=== PATIENT | female | born 1930 | race Caucasian/White ===

== ENCOUNTER 2017-08-14 23:38 | Emergency (ER) | payer MEDICARE, BC | END 2017-08-15 02:45 | disposition home or self-care (01) | LOC: D.ER 23:38 | DX: I10 Essential (primary) hypertension (principal); R00.0 Tachycardia, unspecified; I44.0 Atrioventricular block, first degree ==

== ENCOUNTER 2017-10-22 14:19 | Inpatient (IN) | payer MEDICARE, BC ==
[~2017-10-22] VITALS: Ht 170.2 cm; Wt 85.9 kg
[~2017-10-22 14:19] MED LIST: BAYER CHEWABLE81 MG PO; BENTYL10 MG PO; CALTRATE 600 M600 M1 PO; CARDIZEM CD360 MG PO; LISINOPRIL10 MG PO; LISINOPRIL5 MG PO; MOBIC7.5 MG PO; NORVASC10 MG PO; OMEPRAZOLE40 MG PO; ULTRAM50 MG PO; VITAMIN D31000 UNI2 PO; VOLTAREN100 GM TOPICAL; XANAX0.25 MG PO; XANAX0.5 MG PO; ZANTAC300 MG PO
[2017-10-22 15:04] LABS: BASOPHILS 0.1 % (0-2); HEMATOCRIT 40.5 % (36.0-48.0); IMMATURE GRANULOCYTES 0.4 % (0-5); LYMPHOCYTES 21.5 % (15-50); MCH 32.2 pg (26.0-34.0); MCHC 34.6 g/dL (31.0-37.0); MCV 93.1 fL (80.0-100.0); MONOCYTES 7.2 % (2-11); NEUTROPHILS 69.8 % (40-80); PLATELET COUNT 321 10x3/uL (130-400); RBC 4.35 10x6/uL (4.00-5.40); WBC 6.9 10x3/uL (4.8-10.8)
[2017-10-22 15:19] LABS: ALBUMIN 3.6 g/dL (3.4-5.0); ANION GAP 12.8 mmol/L (8-16); BILIRUBIN - TOTAL 0.4 mg/dL (0.2-1.3); CALCIUM 9.3 mg/dL (8.5-10.1); CARBON DIOXIDE 26.1 mmol/L (21.0-32.0); CREATININE - SERUM 0.9 mg/dL (0.6-1.3); POTASSIUM - SERUM 3.9 mmol/L (3.5-5.1); PROTEIN - SERUM 7.2 g/dL (6.4-8.2)
[2017-10-22 16:12] LABS: AMYLASE - SERUM 34 U/L (25-115); CKMB 1.4 U/L (0.0-3.6); CREATINE KINASE 42 UL (21-215); LIPASE 241 U/L (73-393); TROPONIN-I < 0.017 ng/mL (0.000-0.060)
[2017-10-22 17:27] LABS: APPEARANCE HAZY (CLEAR); BACTERIA MODERATE /hpf (NONE SEEN); BILIRUBIN NEGATIVE (NEGATIVE); COLOR STRAW (YELLOW); EPITHELIAL CELLS 0-5 /hpf (0-5); GLUCOSE NEGATIVE (NEGATIVE); KETONE NEGATIVE (NEGATIVE); NITRITE NEGATIVE (NEGATIVE); PROTEIN NEGATIVE (NEGATIVE); RED CELLS - URINE OCC /hpf (0-5); UROBILINOGEN NORMAL (NORMAL); WHITE CELLS - URINE 25-50 /hpf (0-5)
--- NOTE | 2017-10-22 19:37 | NUR ---
PATIENT ARRIVED FROM THE ER VIA WHEELCHAIR ALERT AND ORIENTED TO ROOM AND CALL LIGHT. CALL LIGHT PLACED IN REACH.
[2017-10-22] MEDS ORDERED: CARAFATE1 G PO (19:44)
[2017-10-22] MEDS ORDERED: GABAPENTIN100 MG PO (19:45)
[2017-10-22 21:38] VITALS: BP 132/52
[2017-10-22 22:19] LABS: CKMB 1.9 U/L (0.0-3.6); CREATINE KINASE 38 UL (21-215)
[2017-10-22 22:20] LABS: TROPONIN-I < 0.017 ng/mL (0.000-0.060)
[2017-10-23] VITALS (7 sets, daily range): BP systolic 132–165; BP diastolic 51–74; Ht 170.2 cm; Wt 85.9 kg
--- NOTE | 2017-10-23 00:13 | NUR ---
PATIENT REQUESTED TO TAKE HER XANAX THAT SHE TAKES AT HOME TO HELP HER REST, I CALLED AND SPOKE WITH DR MOSQUEDA WHO GAVE ME AN ORDER TO BE ABLE TO CONTINUE THIS MEDICATION.
--- NOTE | 2017-10-23 00:25 | NUR ---
PT IN BED RESTING QUIETLY. BREATHING EVEN AND UNLABORED. BED IN LOW POSITION, CALL LIGHT WITHIN REACH. WILL CPOC.
[2017-10-23 04:52] LABS: BASOPHILS 0.4 % (0-2); EOSINOPHILS 2.6 % (0-7); HEMATOCRIT 37.6 % (36.0-48.0); HEMOGLOBIN 12.8 g/dL (12-16); IMMATURE GRANULOCYTES 0.4 % (0-5); LYMPHOCYTES 44.9 % (15-50); MCH 31.9 pg (26.0-34.0); MCV 93.8 fL (80.0-100.0); MEAN PLATELET VOLUME 9.3 fL (7.4-10.4); MONOCYTES 10.3 % (2-11); NEUTROPHILS 41.4 % (40-80); PLATELET COUNT 326 10x3/uL (130-400); RBC 4.01 10x6/uL (4.00-5.40); RDW 11.8 % (11.5-14.5)
[2017-10-23 05:23] LABS: CALC OSMOLALITY 264 mosm/kg (275-300); CALCIUM 8.5 mg/dL (8.5-10.1); CARBON DIOXIDE 24.6 mmol/L (21.0-32.0); CHLORIDE - SERUM 100 mmol/L (98-107); CKMB 1.8 U/L (0.0-3.6); CREATINE KINASE 34 UL (21-215); CREATININE - SERUM 0.7 mg/dL (0.6-1.3); GLUCOSE 94 mg/dL (74-106); POTASSIUM - SERUM 3.7 mmol/L (3.5-5.1); SODIUM 132 mmol/L (136-145); UREA NITROGEN 12 mg/dL (7-18); eGFR NON AFRICAN AMERICAN 84 mL/min (90-120)
[2017-10-23 05:25] LABS: TROPONIN-I < 0.017 ng/mL (0.000-0.060)
--- NOTE | 2017-10-23 07:13 | NUR ---
RECIEVED REPORT ON PATIENT, PATIENT IS ALERT AND OREINTED AT THIS TIME. PATIENT HAS A L AC IV WITH NS INFUSING AT 150ML/HR. PATIENT IS SR ON MONITOR WITH A RATE OF 62. PATIENT DENIES ANY NEEDS AT THIS TIME. BED LOW AND LOCKED. CALL LIGHT IN REACH. CPOC
--- NOTE | 2017-10-23 09:00 | NUR ---
MORNING ASSESSMENT DONE. PATIENT DENIES ANY NEEDS AT THIS TIME. CPOC
--- NOTE | 2017-10-23 10:05 | NUR ---
MORNING MEDICATIONS GIVEN PER ORDER. DENIES ANY OTHER NEEDS CPOC
[2017-10-23 10:23] LABS: CKMB 1.7 U/L (0.0-3.6); CREATINE KINASE 47 UL (21-215); TROPONIN-I < 0.017 ng/mL (0.000-0.060)
--- NOTE | 2017-10-23 12:00 | NUR ---
PATIENT SITTING UP ON BED, EATING LUNCH. FAMILY AT BEDSIDE. PATIENT DENIES ANY NEEDS. CPOC
--- NOTE | 2017-10-23 12:00 | NUR ---
PATIENT REFUSING SCDS AT THIS TIME. CPOC
--- NOTE | 2017-10-23 14:30 | NUR ---
ASSISTED TO PATIENT BATHRROM TO VOID. BACK TO BED. CPOC
--- NOTE | 2017-10-23 15:00 | NUR ---
PATIENT REQUESTING HER VOLTAREN GEL AND SOMETHING TO HELP HER BOWELS MOVED, PAGED DR MOSQUEDA. WAITING FUR FARMER BACK. CPOC
--- NOTE | 2017-10-23 17:00 | NUR ---
ASSISTED PATIENT TO BATHROOM, PATIENT VOIDED. PATIENT STATES COUGH IS GETTING BETTER SINCE TESSALON. DENIES ANY NEEDS. CPOC
--- NOTE | 2017-10-23 17:57 | NUR ---
PATIENT SITTING ON SIDE OF BED EATING DINNER. DENIES ANY NEEDS. CPOC
--- NOTE | 2017-10-23 18:33 | NUR ---
INFORMED PATIENT, MY SHIFT IS ENDING. PATIENT DENIES ANY NEEDS AT THIS TIME. CPOC
--- NOTE | 2017-10-23 20:43 | NUR ---
PATIENT IS HAVING INCREASED CONGESTION, COUGH AND GENERALIZED PAIN. WILL DO A FLU SWAB TO CHECK FOR FLU.
--- NOTE | 2017-10-24 | NUR ---
PT RESTING WELL, NO CHANGES NOTED. ASSESSMENTS UNCHANGED. CALL LIGHT WITHIN REACH. WILL MONITOR.
[2017-10-24 00:50] VITALS: BP 134/70
--- NOTE | 2017-10-24 04:53 | NUR ---
PATIENTS IV INFILTRATED, 3 ATTEMPTS MADE TO START A NEW IV ON THE RIGHT ARM AND RIGHT HAND FAILED, THERE ARE 3 LARGE HEMATOMAS WHERE THE ATTEMPTS WERE MADE. MY CHARGE NURSE RE-SITED THE IV IN RIGHT WRIST. PATIENT TOLERATED WELL, CALL LIGHT IN REACH.
[2017-10-24 05:16] VITALS: BP 139/70
[2017-10-24 08:50] VITALS: BP 127/82
--- NOTE | 2017-10-24 09:29 | NUR ---
TELEMETRY SR. TAYLOR ULRICH. CALL LIGHT IN REACH. WILL CONT. FLY OF CARE.
[2017-10-24 12:20] VITALS: BP 119/51
[2017-10-24 16:39] VITALS: BP 149/75
--- NOTE | 2017-10-24 19:45 | NUR ---
PT RESTING IN BED. ASSISTED PT TO RESTROOM. INCONT SMALL AMOUNT IN BREIF. STAND BY ASSIST TO CHAIR. PT SITTING IN CHAIR. NS INFUSING TO RIGHT HAND IV 150. PT NEW BREIF ON. PT CLEAN AND DRY. DENIES ANY NEEDS. NO S/S OF DISTRESS. WILL CPOC
[2017-10-24 20:00] VITALS: BP 133/52
[2017-10-25] VITALS: BP 143/57
--- NOTE | 2017-10-25 00:04 | NUR ---
ASSISTED PT TO RESTROOM AND BACK TO BED. PT LAYING DOWN AFTER SITTING UP APPROX 4 HOURS. PT STATES IT HELPED HER FEEL BETTER. PT DENIES ANY NEEDS. NO S/S OF DISTRESS. BED LOW AND CALL LIGHT IN REACH. WILL CPOC
--- NOTE | 2017-10-25 03:00 | NUR ---
PT UP TO RESTROOM. STANDBY ASSIST. PT BACK TO BED AND REPOSITONED. PT DENIES ANY NEEDS. NO S/S OF DISTRESS. WILL CPOC
[2017-10-25 04:00] VITALS: BP 145/54
[2017-10-25 05:10] LABS: BASOPHILS 0 % (0-2); EOSINOPHILS 0 % (0-7); HEMATOCRIT 36.5 % (36.0-48.0); HEMOGLOBIN 12.3 g/dL (12-16); IMMATURE GRANULOCYTES 0.4 % (0-5); LYMPHOCYTES 14.6 % (15-50); MCH 31.5 pg (26.0-34.0); MCHC 33.7 g/dL (31.0-37.0); MCV 93.6 fL (80.0-100.0); MONOCYTES 1.9 % (2-11); NEUTROPHILS 83.1 % (40-80); PLATELET COUNT 317 10x3/uL (130-400); RDW 12.1 % (11.5-14.5); WBC 4.8 10x3/uL (4.8-10.8)
[2017-10-25 05:20] LABS: ANION GAP 13.2 mmol/L (8-16); CALCIUM 8.9 mg/dL (8.5-10.1); CARBON DIOXIDE 23.9 mmol/L (21.0-32.0); CREATININE - SERUM 0.8 mg/dL (0.6-1.3); POTASSIUM - SERUM 4.1 mmol/L (3.5-5.1)
--- NOTE | 2017-10-25 06:13 | NUR ---
PT ASLEEP ON RIGHT SIDE. MORNING MEDS HAVE BEEN GIVEN. PT DENIES ANY NEEDS AT THIS TIME. NO S/S OF DISTRESS. BED LOW AND CALL LIGHT INREACH. WILL CPOC
--- NOTE | 2017-10-25 07:15 | NUR ---
RECIEVED REPORT ON PATIENT, PATIENT IS ALERT AND ORIENTED AT THIS TIME. PATIENT HAS A L WRIST IV WITH NS INFUSING AT 50ML/HR. PATIENT IS SR ON MONITOR WITH A RATE OF 70. PATIENT DENIES ANY NEEDS OR COMPLAINTS AT THIS TIME. WILL CONT TO MONITOR PATIENT. CPOC
[2017-10-25 08:27] VITALS: BP 164/68
--- NOTE | 2017-10-25 09:15 | NUR ---
MORNING MEDICATIONS GIVEN, NO ISSUES. CPOC
--- NOTE | 2017-10-25 11:16 | NUR ---
Nutrition follow-up: Visited with pt during meal rounds. Pt happy with meals at this time. Diet: ADA consistent CHO PO intake ~60% average of meals Labs reviewed +BM RDN following.
--- NOTE | 2017-10-25 11:30 | NUR ---
PATIENT SITTING UP IN CHAIR EATING LUNCH, DENIES ANY NEEDS AT THIS TIME. CPOC
[2017-10-25 11:57] VITALS: BP 153/60
--- NOTE | 2017-10-25 13:30 | NUR ---
PATIENT SITTING UP IN CHAIR. FAMILY AT BEDSIDE. PATIENT DENIES ANY NEEDS. CPOC
--- NOTE | 2017-10-25 16:53 | NUR ---
CALLED PHARMACY FOR PATIENT HUMULIN, NOT AVAILABLE. WILL GIVE WHEN AVAIABLE. CPOC
--- NOTE | 2017-10-25 17:11 | NUR ---
HUMULIN NOT GIVEN, PATIENT REFUSED, STATES SHE DOES NOT TAKE INSULIN, AND WANTS TO WAIT AND SEE WHAT HER BLOOD SUGAR DOES. CPOC
--- NOTE | 2017-10-25 18:43 | NUR ---
PATIENT INFORMED I WAS LEAVING, TIME FOR SWITCHING SHIFTS. PATIENT NEEDS MET. DENIES ANY OTHER NEEDS. CPOC
--- NOTE | 2017-10-25 20:00 | NUR ---
PT IS RESTING QUIETLY IN RECLINER IN HER ROOM WATCHING TV. ALERT AND ORIENTED X 3. DENIES ACUTE DISCOMFORT AT THIS TIME. ASSISTED TO THE BATHROOM PER HER REQUEST. SHE AMBULATED WITH STEADY GAIT WITH NURSE PUSHING IV POLE. LANCE CARE GIVEN BY SELF FOR STRESS INC. EPISODE. TELEMETRY UNIT IS ON AND INTACT. IV INFUSING TO LEFT WRIST WITHOUT DIFFICULTY. NO REDNESS OR EDEMA NOTED AT THE INSERTION SITE. SR'S ARE UP X 3 IN BED. CALL LIGHT AND BEDSIDE TABLE ARE WITHIN EASY REACH.
[2017-10-25 20:33] VITALS: BP 115/83
--- NOTE | 2017-10-25 22:41 | NUR ---
RESTING QUIETLY IN BED WITH EYES CLOSED. RESPS ARE EVEN AND UNLABORED. NO ACUTE DISTRESS NOTED.
--- NOTE | 2017-10-26 00:33 | NUR ---
PT ASSISTED TO THE BATHROOM WITH SBA. NO FURTHER NEEDS VOICED.
--- NOTE | 2017-10-26 02:31 | NUR ---
RESTING QUIETLY IN BED WITH EYES CLOSED. RESPS ARE EVEN AND UNLABORED. NO ACUTE DISTRESS NOTED.
[2017-10-26 03:47] VITALS: BP 139/74
[2017-10-26 04:37] LABS: BASOPHILS 0 % (0-2); EOSINOPHILS 0 % (0-7); HEMATOCRIT 34.4 % (36.0-48.0); HEMOGLOBIN 11.7 g/dL (12-16); IMMATURE GRANULOCYTES 0.5 % (0-5); LYMPHOCYTES 6.1 % (15-50); MCH 32.1 pg (26.0-34.0); MCV 94.5 fL (80.0-100.0); MEAN PLATELET VOLUME 9.6 fL (7.4-10.4); MONOCYTES 3.3 % (2-11); NEUTROPHILS 90.1 % (40-80); PLATELET COUNT 342 10x3/uL (130-400); RBC 3.64 10x6/uL (4.00-5.40); RDW 12.2 % (11.5-14.5)
[2017-10-26 04:41] LABS: WBC 9.4 10x3/uL (4.8-10.8)
[2017-10-26 04:59] LABS: ANION GAP 12.6 mmol/L (8-16); BILIRUBIN - TOTAL 0.24 mg/dL (0.2-1.3); CALCIUM 8.8 mg/dL (8.5-10.1); CARBON DIOXIDE 25.1 mmol/L (21.0-32.0); CREATININE - SERUM 0.8 mg/dL (0.6-1.3); POTASSIUM - SERUM 3.7 mmol/L (3.5-5.1); PROTEIN - SERUM 6.1 g/dL (6.4-8.2)
--- NOTE | 2017-10-26 07:15 | NUR ---
RECIEVED REPORT ON PATIENT, PATIENT IS ALERT AND ORIENTED AT THIS TIME. PATIENT HAS A L WRIST IV WITH NS INFUSING AT 50ML/HR. PATIENT IS SR ON MONITOR WITH A RATE OF 67. PATIENT DENIES ANY NEEDS OR COMPLAINTS AT THIS TIME. WILL CONT TO MONITOR PATIENT. PATIENT SITTING ON SIDE OF BED. CPOC
[2017-10-26 08:00] VITALS: BP 127/60
--- NOTE | 2017-10-26 09:30 | NUR ---
MORNING MEDICATIONS GIVEN, NO ISSUES AT THIS TIME. PATIENT SITTING UP IN CHAIR. CPOC
--- NOTE | 2017-10-26 11:30 | NUR ---
FSBS 154, 2 UNITS OF HUMULIN GIVEN INSTEAD OF 4 UNITS DUE TO PATIENT NEVER HAS HAD INSULIN AND DOES NOT WANT TO BOTTOM OUT. WILL CONT TO MONITOR. CPOC
[2017-10-26 12:00] VITALS: BP 133/51
--- NOTE | 2017-10-26 13:15 | NUR ---
PATIENT SITTING ON SIDE OF BED EATING LUNCH. DENIES ANY NEEDS. CPOC
--- NOTE | 2017-10-26 15:47 | NUR ---
ASSISTED PATIENT TO BATHROOM, PATIENT HAD BM. PATIENT BACK TO BED, WANTING TO REST. CPOC
[2017-10-26 16:00] VITALS: BP 126/54
--- NOTE | 2017-10-26 17:05 | NUR ---
FSBS 153, HUMULIN 4 UNITS GIVEN. PATIENT ASSISTED TO BATHROOOM, NOW SITTING UP IN CHAIR. DENIES ANY NEEDS. CPOC
--- NOTE | 2017-10-26 18:47 | NUR ---
PATIENT IV INFILTRATED. IV DC WITH CATH TIP INTACT. WILL TRY TO GET ANOTHER. CPOC
[2017-10-26 21:38] VITALS: BP 123/63
--- NOTE | 2017-10-26 22:40 | NUR ---
RECEIVED IN BEDROOM. RESTING IN RECLINER EYES OPEN. VISITORS AT HER SIDE. IV OUT. RESTARTED IV X2 ATEMPTS IN LEFT AC. PATIENT STATES SHE FEELS ANXIETY IN THE AFTERNOONS. ENCOURAGE TO EXPRESS NEEDS. CALL LIGHT IN REACH. IV INFUSING AT THIS TIME.
[2017-10-27 00:37] VITALS: BP 145/50
--- NOTE | 2017-10-27 03:28 | NUR ---
RESTING IN BED WITH EYES CLOSED. NO SIGNS OF DISTRESS. CALL LIGHT IN REACH.
[2017-10-27 04:53] VITALS: BP 134/45
[2017-10-27 05:17] LABS: BASOPHILS 0 % (0-2); EOSINOPHILS 0 % (0-7); HEMATOCRIT 36.5 % (36.0-48.0); HEMOGLOBIN 12.1 g/dL (12-16); IMMATURE GRANULOCYTES 0.9 % (0-5); LYMPHOCYTES 6.6 % (15-50); MCH 31.4 pg (26.0-34.0); MCHC 33.2 g/dL (31.0-37.0); MCV 94.8 fL (80.0-100.0); MEAN PLATELET VOLUME 9.4 fL (7.4-10.4); MONOCYTES 5.7 % (2-11); NEUTROPHILS 86.8 % (40-80); PLATELET COUNT 400 10x3/uL (130-400); RBC 3.85 10x6/uL (4.00-5.40); RDW 12.6 % (11.5-14.5); WBC 7.9 10x3/uL (4.8-10.8)
[2017-10-27 05:30] LABS: ALBUMIN 2.9 g/dL (3.4-5.0); ANION GAP 11.9 mmol/L (8-16); BILIRUBIN - TOTAL 0.22 mg/dL (0.2-1.3); CALCIUM 8.8 mg/dL (8.5-10.1); CREATININE - SERUM 0.9 mg/dL (0.6-1.3); POTASSIUM - SERUM 3.9 mmol/L (3.5-5.1); PROTEIN - SERUM 6.2 g/dL (6.4-8.2)
--- NOTE | 2017-10-27 07:15 | NUR ---
RECIEVED REPORT ON PATIENT, PATIENT IS ALERT AND ORIENTED AT THIS TIME. PATIENT HAS A L AC IV WITH NS INFUSING AT 50ML/HR. PATIENT IS WATCHING TV, DENIES ANY NEEDS OR PAIN AT THIS TIME. WILL CONT TO MONITOR PATIENT. CPOC
[2017-10-27 08:17] VITALS: BP 138/56
--- NOTE | 2017-10-27 09:40 | NUR ---
MORNING MEDICATION GIVEN, NO ISSUES. CPOC
[2017-10-27 11:22] VITALS: BP 123/46
--- NOTE | 2017-10-27 12:55 | NUR ---
PATIENT EATING LUNCH. DENIES ANY NEEDS. CPOC
--- NOTE | 2017-10-27 13:31 | NUR ---
SLEEPING AT PRESENT
[2017-10-27 16:04] VITALS: BP 139/50
--- NOTE | 2017-10-27 18:12 | NUR ---
PATIENT UP IN CHAIR. UP TO BR WITH ASSISTANCE. URINE SPECIMEN COLLECTED
[2017-10-27 18:38] LABS: APPEARANCE CLEAR (CLEAR); BILIRUBIN NEGATIVE (NEGATIVE); COLOR YELLOW (YELLOW); GLUCOSE NEGATIVE (NEGATIVE); KETONE NEGATIVE (NEGATIVE); NITRITE NEGATIVE (NEGATIVE); PROTEIN NEGATIVE (NEGATIVE); SPECIFIC GRAVITY 1.015 (1.005-1.020); UROBILINOGEN NORMAL (NORMAL)
--- NOTE | 2017-10-27 19:22 | NUR ---
PT IN BED RESTING QUIELTY. BREATHING EVEN AND UNLABORED. CURRENTLY RECIEVING BREATHING TREATMENT. DENIES ANY PAIN OR NEEDS AT THIS TIME. BED IN LOW POSITION, CALL LIGHT WITHIN REACH. WILL CTM.
[2017-10-27 21:19] VITALS: BP 147/54
[2017-10-28 01:58] VITALS: BP 149/62
[2017-10-28 05:10] VITALS: BP 146/56
[2017-10-28 05:52] LABS: BASOPHILS 0 % (0-2); EOSINOPHILS 0 % (0-7); HEMATOCRIT 35.8 % (36.0-48.0); HEMOGLOBIN 12.1 g/dL (12-16); IMMATURE GRANULOCYTES 1.1 % (0-5); LYMPHOCYTES 8.5 % (15-50); MCH 32.1 pg (26.0-34.0); MCHC 33.8 g/dL (31.0-37.0); MEAN PLATELET VOLUME 9.4 fL (7.4-10.4); MONOCYTES 5.7 % (2-11); NEUTROPHILS 84.7 % (40-80); PLATELET COUNT 394 10x3/uL (130-400); RBC 3.77 10x6/uL (4.00-5.40); RDW 12.6 % (11.5-14.5); WBC 6.1 10x3/uL (4.8-10.8)
--- NOTE | 2017-10-28 06:18 | NUR ---
FSBS 150. NO INSULIN GIVEN PER SLIDING SCALE. BREATHING EVEN AND UNLABORED. BED IN LOW POSITION, CALL LIGHT WITHIN REACH. WILL CTM.
[2017-10-28 06:27] LABS: ALBUMIN 2.9 g/dL (3.4-5.0); ANION GAP 11.9 mmol/L (8-16); BILIRUBIN - TOTAL 0.2 mg/dL (0.2-1.3); CALCIUM 8.9 mg/dL (8.5-10.1); CARBON DIOXIDE 26.1 mmol/L (21.0-32.0); PROTEIN - SERUM 5.8 g/dL (6.4-8.2)
[2017-10-28 08:10] VITALS: BP 152/56
[2017-10-28 11:18] VITALS: BP 136/45
[2017-10-28 16:05] VITALS: BP 146/67
--- NOTE | 2017-10-28 18:21 | NUR ---
REC'D SITTING ON SIDE OF BED AWAKE AND ALERT. RESP EVEN AND UNLABIORED WITH NO DISTRESS NOTED. CAN EXPRESS NEEDS AND WANTS. NO C/O NOTED OR VOICED. ASSESSMENT COMPLETED. CL IN REACH AT BEDSIDE.
--- NOTE | 2017-10-28 19:39 | NUR ---
PT IN BED RESTING QUIETLY. DENIES ANY NEEDS AT THIS TIME. BED IN LOW POSITION, CALL LIGHT WITHIN REACH. WILL CTM.
[2017-10-28 20:19] VITALS: BP 147/59
[2017-10-29 00:38] VITALS: BP 103/49
[2017-10-29 04:57] VITALS: BP 147/51
[2017-10-29 05:27] LABS: BASOPHILS 0.1 % (0-2); EOSINOPHILS 0 % (0-7); HEMATOCRIT 35.7 % (36.0-48.0); IMMATURE GRANULOCYTES 1.7 % (0-5); LYMPHOCYTES 7.6 % (15-50); MCH 31.7 pg (26.0-34.0); MCHC 33.6 g/dL (31.0-37.0); MCV 94.4 fL (80.0-100.0); MEAN PLATELET VOLUME 9.5 fL (7.4-10.4); MONOCYTES 8.1 % (2-11); NEUTROPHILS 82.5 % (40-80); PLATELET COUNT 424 10x3/uL (130-400); RBC 3.78 10x6/uL (4.00-5.40); RDW 12.5 % (11.5-14.5)
[2017-10-29 05:29] LABS: ALBUMIN 2.7 g/dL (3.4-5.0); ANION GAP 10.8 mmol/L (8-16); BILIRUBIN - TOTAL 0.2 mg/dL (0.2-1.3); CALCIUM 8.5 mg/dL (8.5-10.1); CREATININE - SERUM 1.1 mg/dL (0.6-1.3); POTASSIUM - SERUM 3.8 mmol/L (3.5-5.1); PROTEIN - SERUM 5.5 g/dL (6.4-8.2)
[2017-10-29 05:30] LABS: WBC 8.7 10x3/uL (4.8-10.8)
[2017-10-29 08:00] VITALS: BP 128/51
--- NOTE | 2017-10-29 08:15 | NUR ---
AM ROUNDS - PT IS IN BED AND AWAKE AT THIS TIME. IV TO LEFT AC, NS AT 50CC/HR. UP WITH MINIMAL ASSIST/CANE. MONITOR SHOWING SR, HR 68. PT IS A&O. BED AT LOWEST POSITION. CALL RODRIGUEZ IN USE/REACH. SIDE RAILS UP X2. WILL CONTINUE TO MONITOR
[2017-10-29 12:00] VITALS: BP 135/51
--- NOTE | 2017-10-29 15:26 | NUR ---
PT IN BED ON CELL PHONE AT THIS TIME. NO NEEDS. WILL CONTINUE TO MONITOR
[2017-10-29 16:00] VITALS: BP 131/48
--- NOTE | 2017-10-29 16:45 | NUR ---
SANIYA called and spoke with Yee at [facility] regarding referral. Faxed referral to Yee awaiting determination.
--- NOTE | 2017-10-29 19:00 | NUR ---
Patient Name: YESENIA REYES Admission Status: ER Accout number: [id number] Admission Date: 10-24-2017 : 1930 Admission Diagnosis:WEAKNESS Attending: CAROLYN MOSQUEDA Current LOS: 5 Anticipated DC Date: 10-30-2017 Planned Disposition: [facility] Facility Primary Insurance: MEDICARE A & B PLANNED EXTERNAL PROVIDER: [facility], MEDICARE REHAB BED Discharge Planning Comments: * Is the patient Alert and Oriented? Yes 0 * How many steps to enter\exit or inside your home? 3 W/RAIL 0 * PCP DR. LI 0 * Pharmacy [facility] ORDER OR Motility Count 0 * Preadmission Environment Home Alone 0 * ADLs Independent 0 * Equipment Bedside Commode Cane Rolling Walker 0 * Other Equipment NO MEDICAL EQUIPMENT PROVIDER PREFERENCE 0 * List name and contact numbers for known caregivers / representatives who currently or will assist patient after discharge: SANDRINE REYES, SON, MICHAEL GRESHAM, GRANDDAUGHTER, 0 * Community resources currently utilized Home Health 0 * Please name any agencies selected above. UNKNOWN HOME HEALTH COMPANY 0 * Additional services required to return to the preadmission environment? Yes 0 * Can the patient safely return to the preadmission environment? Yes 0 * Has this patient been hospitalized within the prior 30 days at any hospital? Yes 0 CM MET WITH PT IN ROOM TO DISCUSS DISCHARGE PLANNING AND NEEDS. PT REPORTS LIVING AT HOME INDEPENDENTLY AND ALONE. PT HAS ALL NEEDED MEDICAL EQUIPMENT AT HOME AND AN UNKNOWN HOME HEALTH COMPANY COMING OUT. CM DISCUSSED AVAILABILITY OF HOME HEALTH, REHAB SERVICES AND MEDICAL EQUIPMENT. PT WANTS REHAB AT [facility], CHOICE SIGNED, REPORTS HER SON WILL PICK HER UP FOR DISCHARGE HOME. IMPORTANT MESSAGE FROM MEDICARE PROVIDED AND EXPLAINED. 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 PT NOTIFIED, IN AGREEMENT WITH DISCHARGE TO REHAB TOMORROW AT [facility]. BEDSIDE NURSE NOTIFIED. FOR DISCHARGE 10-30-17 TO [facility], FAX DISCHARGE INFORMATION TO [facility] AT [phone], CALL NURSE REPORT TO [facility] AT [phone]. [facility]. Senior Business Architect: Prasanna Ybarra
[2017-10-29 20:00] VITALS: BP 136/83
[2017-10-30] VITALS: BP 152/82
[2017-10-30 04:00] VITALS: BP 148/68
[2017-10-30 06:44] LABS: BASOPHILS 0.1 % (0-2); EOSINOPHILS 0 % (0-7); HEMATOCRIT 40.1 % (36.0-48.0); HEMOGLOBIN 13.7 g/dL (12-16); IMMATURE GRANULOCYTES 3.2 % (0-5); LYMPHOCYTES 8.4 % (15-50); MCH 32.1 pg (26.0-34.0); MCHC 34.2 g/dL (31.0-37.0); MCV 93.9 fL (80.0-100.0); MEAN PLATELET VOLUME 9.3 fL (7.4-10.4); MONOCYTES 8.2 % (2-11); NEUTROPHILS 80.1 % (40-80); PLATELET COUNT 465 10x3/uL (130-400); RBC 4.27 10x6/uL (4.00-5.40); RDW 12.6 % (11.5-14.5); WBC 14.5 10x3/uL (4.8-10.8)
[2017-10-30 06:58] LABS: ALBUMIN 3.1 g/dL (3.4-5.0); ANION GAP 13.6 mmol/L (8-16); BILIRUBIN - TOTAL 0.28 mg/dL (0.2-1.3); CALCIUM 8.7 mg/dL (8.5-10.1); CARBON DIOXIDE 27.5 mmol/L (21.0-32.0); CREATININE - SERUM 1.2 mg/dL (0.6-1.3); POTASSIUM - SERUM 4.1 mmol/L (3.5-5.1); PROTEIN - SERUM 6.4 g/dL (6.4-8.2)
[2017-10-30 08:00] VITALS: BP 147/62
--- NOTE | 2017-10-30 08:00 | NUR ---
REPORT RECEIVED. ASSESSMENT COMPLETED PER FLOW SHEET. AWAKE, ALERT AND ORIENTED X 3. LYING IN BED. NO NEEDS AT THIS TIME.
[2017-10-30 12:00] VITALS: BP 160/65
[2017-10-30 15:46] VITALS: BP 132/57
--- NOTE | 2017-10-30 19:33 | NUR ---
PT IN CHAIR AT BEDSIDE. BREATHING EVEN AND UNLABORED. CALL LIGHT WITHIN REACH. WILL CTM.
[2017-10-30 20:00] VITALS: BP 138/58
[2017-10-31 00:05] LABS: APPEARANCE CLEAR (CLEAR); BILIRUBIN NEGATIVE (NEGATIVE); COLOR YELLOW (YELLOW); GLUCOSE NEGATIVE (NEGATIVE); KETONE NEGATIVE (NEGATIVE); NITRITE NEGATIVE (NEGATIVE); PROTEIN NEGATIVE (NEGATIVE); UROBILINOGEN NORMAL (NORMAL)
[2017-10-31 04:00] VITALS: BP 130/52
--- NOTE | 2017-10-31 07:51 | NUR ---
AM ROUNDS - PT IN BED AND APPEARS TO BE SLEEPING AT THIS TIME. LEFT AC, NS AT 50CC/HR. BED AT LOWEST PSOITION. CALL RODRIGUEZ IN USE/REACH. SIDE RAILS UP X2. WILL CONTINEU TO MONITOR
[2017-10-31 08:00] VITALS: BP 135/52
[2017-10-31 11:07] LABS: BASOPHILS 0.1 % (0-2); EOSINOPHILS 0 % (0-7); HEMATOCRIT 39.7 % (36.0-48.0); HEMOGLOBIN 13.4 g/dL (12-16); IMMATURE GRANULOCYTES 1.7 % (0-5); LYMPHOCYTES 7.2 % (15-50); MCH 31.9 pg (26.0-34.0); MCHC 33.8 g/dL (31.0-37.0); MCV 94.5 fL (80.0-100.0); MONOCYTES 6.8 % (2-11); NEUTROPHILS 84.2 % (40-80); PLATELET COUNT 402 10x3/uL (130-400); RDW 12.7 % (11.5-14.5); WBC 16.8 10x3/uL (4.8-10.8)
[2017-10-31 11:14] LABS: ANION GAP 10.7 mmol/L (8-16); CALCIUM 8.4 mg/dL (8.5-10.1); CARBON DIOXIDE 29.1 mmol/L (21.0-32.0); CREATININE - SERUM 1.1 mg/dL (0.6-1.3); POTASSIUM - SERUM 3.8 mmol/L (3.5-5.1)
[2017-10-31 12:00] VITALS: BP 135/57
[2017-10-31 16:00] VITALS: BP 122/49
--- NOTE | 2017-10-31 19:40 | NUR ---
RECEIVED REPORT, WILL ASSUME CARE OF PT, PT DENIES ANY NEEDS, BED IS LOW, SRX2, CALL LIGHT IN REACH, WILL CONTINUE PLAN OF CARE
[2017-10-31 21:01] VITALS: BP 196/110
[2017-11-01 00:52] VITALS: BP 122/63
[2017-11-01 05:06] LABS: BASOPHILS 0.1 % (0-2); EOSINOPHILS 0 % (0-7); HEMOGLOBIN 12.9 g/dL (12-16); IMMATURE GRANULOCYTES 3.3 % (0-5); LYMPHOCYTES 7.5 % (15-50); MCH 31.8 pg (26.0-34.0); MCHC 33.9 g/dL (31.0-37.0); MCV 93.6 fL (80.0-100.0); MEAN PLATELET VOLUME 9.4 fL (7.4-10.4); MONOCYTES 6.5 % (2-11); NEUTROPHILS 82.6 % (40-80); PLATELET COUNT 402 10x3/uL (130-400); RBC 4.06 10x6/uL (4.00-5.40); RDW 12.7 % (11.5-14.5); WBC 12.8 10x3/uL (4.8-10.8)
[2017-11-01 05:36] VITALS: BP 176/62
[2017-11-01 05:37] LABS: ANION GAP 9.8 mmol/L (8-16); CALCIUM 8.5 mg/dL (8.5-10.1); CARBON DIOXIDE 29.8 mmol/L (21.0-32.0); CREATININE - SERUM 1.1 mg/dL (0.6-1.3)
[2017-11-01 05:38] LABS: POTASSIUM - SERUM 4.6 mmol/L (3.5-5.1)
--- NOTE | 2017-11-01 07:14 | NUR ---
PT UP TO CHAIR, RESP EVEN AND UNALABORED, LT AC IV SL. HELPED PT TO BATHROOM AND BACK TO CHAIR. PT DENIES ANY OTHER NEEDS AT THIS TIME. CALL LIGHT IN REACH, NAD NOTED, WILL CONTINUE PLAN OF CARE.
[2017-11-01 08:42] VITALS: BP 163/61
--- NOTE | 2017-11-01 09:34 | NUR ---
AM MEDS GIVEN. PT UP TO CHAIR, DENIES ANY NEEDS AT THIS TIME. CALL LIGHT IN REACH, NAD NOTED, WILL CONTINUE PLAN OF CARE.
[2017-11-01 13:41] VITALS: BP 168/66
--- NOTE | 2017-11-01 14:20 | NUR ---
Nutrition follow-up: Diet: ADA consistent CHO PO intake ~70% average of meals labs reviewed +BM Wt: 189# PO good at this time. RDN following.
--- NOTE | 2017-11-01 14:46 | NUR ---
GAVE TESSALON SCHEDULED. PT IN BED, DENIES ANY NEEDS AT THIS TIME. CALL LIGHT IN REACH, NAD NOTED, WILL CONTINUE PLAN OF CARE.
--- NOTE | 2017-11-01 14:48 | NUR ---
TALKED TO DR. LI AND INFORMED HIM ABOUT PT NOT HAVING IV, SINCE IT WENT BAD THIS AM. AND THAT PT IS DONE WITH HER ANTIBIOTICS ONLY HAS ORDERS FOR IV FLUIDS. DR. LI STATED NOT TO START ANOTHER IV SINCE PT WILL BE D/C TOMORROW AND THAT HE WILL STOP IV FLUIDS.
[2017-11-01 17:42] VITALS: BP 138/60
--- NOTE | 2017-11-01 19:22 | NUR ---
RECEIVED REPORT, WILL ASSUME CARE OF PT, PT IS WATCHING TV, DENIES ANY NEEDS AT THIS TIME, BED IS LOW, SRX2, CALL LIGHT IN REACH, WILL CONTINUE PLAN OF CARE
[2017-11-01 20:53] VITALS: BP 140/49
[2017-11-02 00:37] VITALS: BP 126/45
--- NOTE | 2017-11-02 02:41 | NUR ---
ASSESSMENT COMPLETE, SEE FLOWSHEET, QUILL WINDER ASSISTING PT BACK TO BED, WILL CONTINUE PLAN OF CARE
[2017-11-02 04:20] VITALS: BP 134/54
[2017-11-02 05:11] LABS: BASOPHILS 0.1 % (0-2); EOSINOPHILS 1.1 % (0-7); HEMATOCRIT 36.6 % (36.0-48.0); HEMOGLOBIN 12.7 g/dL (12-16); IMMATURE GRANULOCYTES 3.9 % (0-5); LYMPHOCYTES 19.9 % (15-50); MCH 32.5 pg (26.0-34.0); MCHC 34.7 g/dL (31.0-37.0); MCV 93.6 fL (80.0-100.0); MONOCYTES 11.2 % (2-11); NEUTROPHILS 63.8 % (40-80); PLATELET COUNT 341 10x3/uL (130-400); RBC 3.91 10x6/uL (4.00-5.40); RDW 12.8 % (11.5-14.5)
[2017-11-02 06:00] LABS: CALCIUM 8.1 mg/dL (8.5-10.1); CARBON DIOXIDE 29.4 mmol/L (21.0-32.0); CREATININE - SERUM 1.1 mg/dL (0.6-1.3); POTASSIUM - SERUM 4.4 mmol/L (3.5-5.1)
--- NOTE | 2017-11-02 07:08 | NUR ---
PT UP AD CAREN IN ROOM, WANTED HELP GETTING IN CHAIR, HELPED PT TO CHAIR, RESP EVEN AND UNLABORED, PT DENIES ANY NEEDS AT THIS TIME. CALL LIGHT IN REACH, NAD NOTED, WILL CONTINUE PLAN OF CARE.
[2017-11-02 08:00] VITALS: BP 100/58
--- NOTE | 2017-11-02 09:10 | NUR ---
AM MEDS GIVEN AT THIS TIME. PT UP TO CHAIR, DENIES ANY NEEDS AT THIS TIME. CALL LIGHT IN REACH, NAD NOTED.
--- NOTE | 2017-11-02 09:36 | NUR ---
Patient Name: YESENIA REYES Encounter No: [id number] : 1930 Primary Insurance: MEDICARE A & B Anticipated DC Date: 10-30-2017 Planned Disposition: [facility] External Planned Provider: [facility], MEDICARE REHAB BED DCP follow-up note: CM RECEIVED CALL FROM MARIEL OF [facility], , WHO REPORTS THEY WILL ACCEPT PT FOR REHAB; [facility] CREDIT RATING INSPECTOR. CM FAXED HOSPITAL UPDATE TO [facility] AT [phone]. FOR DISCHARGE 10-30-17 TO [facility], FAX DISCHARGE INFORMATION TO [facility] AT [phone], CALL NURSE REPORT TO [facility] AT [phone]. [facility]. Barkeeper: Prasanna Ybarra
[2017-11-02] MEDS ORDERED: STERAPRED DS 1010 MG PO (11:45)
[2017-11-02 12:00] VITALS: BP 122/54
--- NOTE | 2017-11-02 12:41 | NUR ---
Patient Name: YESENIA REYES Encounter No: [id number] : 1930 Primary Insurance: MEDICARE A & B Anticipated DC Date: 11-02-2017 [facility]position[facility] External Planned Provider: [facility], MEDICARE REHAB BED DCP follow-up note: CM RECEIVED DISCHARGE ORDER, MET WITH PT IN ROOM; PT IN AGREEMENT WITH DISCHARGE TODAY TO [facility] FOR REHAB, IMPORTANT MESSAGE FROM MEDICARE PROVIDED AND DISCUSSED. CM CALLED BLADIMIR OF [facility], , WHO REPORTS THEY WILL ACCEPT PT FOR REHAB; [facility] TO [facility] FOR 1330 TODAY. CM FAXED DISCHARGE INFORMATION TO [facility] AT [phone]. PT, BEDSIDE NURSE AND MERCHANDISE MARKER NOTIFIED. PT NOTIFIED FAMILY VIA PHONE IN HER ROOM, DENIES FURTHER NEEDS. NURSE REPORT TO [facility] AT [phone]. [facility] FOR 1:30PM TODAY. Picker Machine Operator: Prasanna Ybarra
--- NOTE | 2017-11-02 13:11 | NUR ---
PROVIDED DISCHARGE VERBAL AND WRITTEN DISCHARGE TEACHING TO PT, PT VERBALIZED UNDERSTANDING REGARDING TEACHING. NO IV TO D/C. PUBLIC RELATIONS SENIOR ASSOCIATE HELPED PT GET READY AND GET ALL HER BELONGINGS READY. PT DENIES ANY NEEDS AT THI TIME. CALL LIGHT IN REACH, NAD NOTED. 1319- CALLED [facility], REPORT GIVEN TO ZAYRA ALCANTARA WHO WILL BE TAKING CARE OF PT.
--- NOTE | 2017-11-02 14:41 | NUR ---
Patient concerned due to the fact that she was told that she would be picked up at 1330. Contacted [place] at [facility] regarding patient transfer. She states that she was also under the impression that the transport van would have been here between 1330 and 1400. She will call and facilitate transfer. Pt notified.
--- NOTE | 2017-11-02 14:57 | NUR ---
PT LEFT UNIT VIA WHEELCHAIR, ACCOMPANIED BY GLEN STAFF, NAD NOTED.
== END 2017-11-02 14:58 | DRG 689 ==
LOC: D.ER 14:19 → OBSVTIME 18:36 → D.M2 18:36
PROVIDERS: Family Medicine; ADMIT Family Medicine
DX: N39.0 Urinary tract infection, site not specified (principal); N17.0 Acute kidney failure with tubular necrosis; J44.1 Chronic obstructive pulmonary disease with (acute) exacerbation; E11.9 Type 2 diabetes mellitus without complications; I48.91 Unspecified atrial fibrillation; K21.9 Gastro-esophageal reflux disease without esophagitis; K21.0 Gastro-esophageal reflux disease with esophagitis; K44.9 Diaphragmatic hernia without obstruction or gangrene

== ENCOUNTER → 2018-01-10 13:12 | Outpatient (CLI) | payer MEDICARE, BC ==
[2017-10-23 12:14] VITALS: BMI 27.9
[~2018-01-10 13:12] MED LIST changes: +CARAFATE1 G PO; +GABAPENTIN100 MG PO; +STERAPRED DS 1010 MG PO
[2018-01-10 14:40] LABS: APPEARANCE CLOUDY (CLEAR); BILIRUBIN NEGATIVE (NEGATIVE); COLOR YELLOW (YELLOW); GLUCOSE NEGATIVE (NEGATIVE); KETONE NEGATIVE (NEGATIVE); NITRITE NEGATIVE (NEGATIVE); PROTEIN 1+ mg/dL (NEGATIVE); SPECIFIC GRAVITY 1.015 (1.005-1.020); UROBILINOGEN NORMAL (NORMAL); WHITE CELLS - URINE 25-50 /hpf (0-5)
[2018-01-10 14:41] LABS: BACTERIA MANY /hpf (NONE SEEN); EPITHELIAL CELLS 0-5 /hpf (0-5); MUCUS <1+ /lpf (NONE SEEN); RED CELLS - URINE OCC /hpf (0-5)
== END | disposition home or self-care (01) ==
LOC: D.LABREF 13:12
PROVIDERS: Family Medicine
DX: N39.0 Urinary tract infection, site not specified (principal)

== ENCOUNTER → 2018-03-17 15:25 | Outpatient (CLI) | payer MEDICARE, BC ==
[2017-10-23 12:14] VITALS: BMI 27.9
[~2018-03-17 15:25] MED LIST changes: +MECLIZINE HCL25 MG PO
[2018-03-17 15:55] LABS: APPEARANCE CLEAR (CLEAR); BILIRUBIN NEGATIVE (NEGATIVE); COLOR YELLOW (YELLOW); GLUCOSE NEGATIVE (NEGATIVE); KETONE NEGATIVE (NEGATIVE); NITRITE NEGATIVE (NEGATIVE); PROTEIN NEGATIVE (NEGATIVE); SPECIFIC GRAVITY 1.015 (1.005-1.020); UROBILINOGEN NORMAL (NORMAL)
[2018-03-17 15:59] LABS: WHITE CELLS - URINE 0-5 /hpf (0-5)
[2018-03-17 16:01] LABS: BACTERIA MANY /hpf (NONE SEEN); RED CELLS - URINE 0-5 /hpf (0-5)
== END | disposition home or self-care (01) ==
LOC: D.LABREF 15:25
PROVIDERS: Family Medicine
DX: R35.0 Frequency of micturition (principal)

== ENCOUNTER → 2018-03-26 13:59 | Outpatient (CLI) | payer MEDICARE, BC ==
[2017-10-23 12:14] VITALS: BMI 27.9
[2018-03-26 15:52] LABS: APPEARANCE CLEAR (CLEAR); COLOR YELLOW (YELLOW); NITRITE NEGATIVE (NEGATIVE)
[2018-03-26 15:53] LABS: BILIRUBIN NEGATIVE (NEGATIVE); GLUCOSE NEGATIVE (NEGATIVE); KETONE NEGATIVE (NEGATIVE); PROTEIN NEGATIVE (NEGATIVE); UROBILINOGEN NORMAL (NORMAL)
== END | disposition home or self-care (01) ==
LOC: D.LABREF 13:59
PROVIDERS: Family Medicine
DX: J44.1 Chronic obstructive pulmonary disease with (acute) exacerbation (principal); I10 Essential (primary) hypertension; R60.1 Generalized edema

== ENCOUNTER 2018-04-05 08:10 | Observation (INO) | payer MEDICARE, BC ==
[~2018-04-05] VITALS: Ht 170.2 cm; Wt 84.1 kg
--- NOTE | ~2018-04-05 | CN ---
PATIENT NAME:YESENIA MENDEZ [place] MEDICAL RECORD: [id number] : [birth year] LOCATION:[facility].E10- ADMIT DATE: 04/05/18 ACCOUNT: [id number] CONSULTING PHYSICIAN: SARAH FERRER MD REFERRING PHYSICIAN: CHANELL LI MD DATE OF CONSULTATION: 04/05/2018 Cardiology Consultation DIAGNOSES: 1. Near syncope. 2. Syncope. 3. Dizziness. HISTORY OF PRESENT ILLNESS: Ms. Mendez has complains of episodes of syncope and near syncope, these are coming more frequent. She does not have any cardiac symptoms. No chest pain, chest discomfort, no shortness of breath, no palpitations with this. Multiple episodes each day, in fact, she was having recurrent episodes while I was talking to her. During these episodes that she was having in the Emergency Room, her heart rate and blood pressure remained stable. She had no significant dysrhythmia. PHYSICAL EXAMINATION: GENERAL APPEARANCE: Well-nourished, well-developed, appears stated age. Level of distress, comfortable. PSYCHIATRIC: Mental status, alert, normal affect. Orientation, oriented to time, place and person. EYES: Lids and conjunctiva, noninjected. No discharge, no pallor. ENT: Lips, teeth, gums, normal dentition. Oropharynx, no cyanosis, no pallor. NECK: Carotid arteries, bilateral normal upstroke, no bruits, no thrills. JUGULAR VEINS: No jugular venous pressure or distention. CERVICAL LYMPH NODES: Nontender, nonenlarged. THYROID: Not enlarged. Nontender. No nodules. LUNGS: Respiratory effort, unlabored. CHEST: Normal curvature. No thoracic deformity. No chest wall tenderness. Percussion, resonant. Auscultation, clear. No wheezes, no rales, no rhonchi. CARDIOVASCULAR: Precordial exam, nondisplaced. No heaves or pericardial thrills. Rate and rhythm, regular. Heart sounds, normal S1, normal S2. No S3, no gallop, no rub. Systolic murmur, not heard. Diastolic murmur, not heard. EXTREMITIES: No cyanosis, no edema. Peripheral pulses, full and equal in all extremities, except as noted. No bruits appreciated. ABDOMEN: Soft, nondistended. Normal aorta. No bruit. Nontender. No masses. Liver, nontender, no hepatomegaly. Spleen, nontender, no splenomegaly. MUSCULOSKELETAL: No joint tenderness. No joint swelling. No erythema. NEUROLOGICAL: Normal gait, normal strength, normal tone. SKIN: Warm and dry. OVERALL IMPRESSION: Episodes of syncope and near syncope. This is not cardiac in etiology, the only cardiac workup will be echocardiogram. No other cardiac workup or treatment is necessary at this time. TRANSINT:[id number] Voice Confirmation ID: [id number] DOCUMENT ID: [id number] CONSULT REPORT [id number] YESENIA MENDEZ JEFFREY MD at 1630 CC: [id number] DICTATION DATE: 04/05/18 1203 HUMAN GEOGRAPHY FACULTY MEMBER: 04/05/18 1224 ADM IN [facility] [address] [id number]
--- NOTE | ~2018-04-05 | EC ---
PATIENT:YESENIA REYES DATE OF SERVICE: 04/05/18 SEX: F MEDICAL RECORD: [id number] DATE OF : [birth year] LOCATION:D.M2 D.210 AGE OF PATIENT: 87 ADMISSION DATE: 04/05/18 REFERRING PHYSICIAN: INTERPRETING PHYSICIAN: SARAH ROSENBAUM MD ECHOCARDIOGRAM REPORT ECHO CHARGES 4 ECHO COMPLETE Date: 04/05 CLINICAL DIAGNOSIS: SYNCOPE ECHOCARDIOGRAPHIC MEASUREMENTS (adult normal given) AC root (d.<3.7cm) 3.6 cm LV Septum d (<1.2 cm> 1.5 cm Valve Excursion 1.9 cm LV Septum (systole) 2.0 cm Left Atria (s.<4.0cm> 4.4 cm LVPW d(<1.2cm) 1.6 cm RV (d.<2.3cm) 4.7 cm LVPW (sytole) 1.8 cm LV diastole(<5.6CM) 4.9 cm MV E-F(>70mm/sec) cm LV systole 3.4 cm LVOT Diameter 1.7 cm MV exc.(>10mm) 1.4 cm Est.ejection fraction (50-75%) % DOPPLER: LVIT cm/sec A 121 cm/sec E 96.0 cm/sec LA cm/sec RVSP 52 mmHg LVOT 120 cm/sec AOP1/2T 559 m/s Asc. Ao 225 cm/sec RVOT 76 cm/sec RA cm/sec PA 145 cm/sec AV Gradient Peak 19.61mmHg AV Mean 5.59 mmHg AV Area 1.3 cm MV Gradient Peak 9.24 mmHg MV Mean 2.76 mmHg MV Area cm COMMENTS: Box Car Loader: Demetris SHAH Reflexologist: 1 Dr. Rosenbaum TAPE# PACS Pericardial Effusion N DATE OF SERVICE: 04/05/2018 FINDINGS: 1. Left ventricular chamber size is within normal limits. Left ventricular systolic function is normal. Overall ejection fraction estimated at 60%. 2. Left atrium is enlarged at 4.4 cm. Right atrium and right ventricular chamber sizes are mildly dilated. 3. Valvular structures have normal structure and motion. 4. Doppler interrogation reveals mild aortic insufficiency, mild mitral regurgitation, mild tricuspid regurgitation. No other valvular insufficiency or ECHOCARDIOGRAM REPORT [id number] YESENIA REYES stenosis. Pulmonary systolic pressure is estimated 52 mmHg. 5. No evidence of pericardial effusion or left ventricular thrombus. TRANSINT:[id number] Voice Confirmation ID: [id number] DOCUMENT ID: [id number] SARAH ROSENBAUM MD at 1848 CC: [id number] DICTATION DATE: 04/06/18 1253 LITHOGRAPHIC PLATE MAKER APPRENTICE: 04/06/18 1445 DIS IN 04/06/18 [address] [address] [id number] [id number]
[~2018-04-05 08:10] MED LIST changes: -MECLIZINE HCL25 MG PO
[2018-04-05 09:32] LABS: BASOPHILS 0.7 % (0-2); EOSINOPHILS 4.2 % (0-7); HEMATOCRIT 40.7 % (36.0-48.0); HEMOGLOBIN 13.8 g/dL (12-16); IMMATURE GRANULOCYTES 0.4 % (0-5); LYMPHOCYTES 25.3 % (15-50); MCH 30.1 pg (26.0-34.0); MCHC 33.9 g/dL (31.0-37.0); MCV 88.9 fL (80.0-100.0); MEAN PLATELET VOLUME 9.9 fL (7.4-10.4); MONOCYTES 6.5 % (2-11); NEUTROPHILS 62.9 % (40-80); PLATELET COUNT 317 10x3/uL (130-400); RBC 4.58 10x6/uL (4.00-5.40); RDW 12.7 % (11.5-14.5); WBC 5.5 10x3/uL (4.8-10.8)
[2018-04-05 09:49] LABS: ALBUMIN 4.2 g/dL (3.4-5.0); ALKALINE PHOSPHATASE 106 U/L (46-116); ALT (SGPT) 23 U/L (10-68); CALC OSMOLALITY 271 mosm/kg (275-300); CALCIUM 9.9 mg/dL (8.5-10.1); CARBON DIOXIDE 24.8 mmol/L (21.0-32.0); CHLORIDE - SERUM 98 mmol/L (98-107); CREATININE - SERUM 1.3 mg/dL (0.6-1.3); GLUCOSE 144 mg/dL (74-106); POTASSIUM - SERUM 4.4 mmol/L (3.5-5.1); PROTEIN - SERUM 7.9 g/dL (6.4-8.2); SODIUM 132 mmol/L (136-145); UREA NITROGEN 23 mg/dL (7-18); eGFR NON AFRICAN AMERICAN 41 mL/min (90-120)
[2018-04-05 09:55] LABS: PRO BNP 243 pg/mL (0-450); TROPONIN-I < 0.017 ng/mL (0.000-0.060)
[2018-04-05 11:35] LABS: APPEARANCE CLEAR (CLEAR); BILIRUBIN NEGATIVE (NEGATIVE); COLOR STRAW (YELLOW); GLUCOSE NEGATIVE (NEGATIVE); KETONE NEGATIVE (NEGATIVE); NITRITE NEGATIVE (NEGATIVE); PROTEIN NEGATIVE (NEGATIVE); UROBILINOGEN NORMAL (NORMAL)
[2018-04-05 21:27] VITALS: BP 113/55
[2018-04-05 22:45] VITALS: BMI 29.0
[2018-04-06 01:02] VITALS: BP 130/55
[2018-04-06 05:22] LABS: BASOPHILS 0.6 % (0-2); IMMATURE GRANULOCYTES 0.2 % (0-5); LYMPHOCYTES 35.3 % (15-50); MCH 29.8 pg (26.0-34.0); MCHC 33.3 g/dL (31.0-37.0); MCV 89.4 fL (80.0-100.0); MEAN PLATELET VOLUME 9.4 fL (7.4-10.4); MONOCYTES 10.2 % (2-11); NEUTROPHILS 46.7 % (40-80); PLATELET COUNT 294 10x3/uL (130-400); RBC 4.36 10x6/uL (4.00-5.40); RDW 12.8 % (11.5-14.5); WBC 5.3 10x3/uL (4.8-10.8)
[2018-04-06 05:31] LABS: ANION GAP 14.3 mmol/L (8-16); CALCIUM 9.4 mg/dL (8.5-10.1); CARBON DIOXIDE 23.8 mmol/L (21.0-32.0); CREATININE - SERUM 1.1 mg/dL (0.6-1.3); POTASSIUM - SERUM 4.1 mmol/L (3.5-5.1)
[2018-04-06 05:37] VITALS: BP 141/47
[2018-04-06 07:44] VITALS: Ht 170.2 cm; Wt 84.1 kg
[2018-04-06] MEDS ORDERED: MECLIZINE HCL25 MG PO (07:45)
[2018-04-06 09:15] VITALS: BP 89/50
== END 2018-04-06 12:39 | disposition home or self-care (01) ==
LOC: D.ER 08:10 → OBSVTIME 11:31 → D.EDHOLD 11:31 → D.M2 19:13
PROVIDERS: Family Medicine
DX: H81.10 Benign paroxysmal vertigo, unspecified ear (principal); E11.40 Type 2 diabetes mellitus with diabetic neuropathy, unspecified; I10 Essential (primary) hypertension; I25.10 Atherosclerotic heart disease of native coronary artery without angina pectoris; I48.91 Unspecified atrial fibrillation; K21.9 Gastro-esophageal reflux disease without esophagitis

== ENCOUNTER 2018-05-03 11:01 | Outpatient (CLI) | payer MEDICARE, BC ==
[~2018-05-03] VITALS: Ht 170.2 cm; Wt 83.2 kg
--- NOTE | ~2018-05-03 | OP ---
PATIENT NAME: YESENIA REYES MEDICAL RECORD: [id number] :[birth year] LOCATION:D.CAT ADMISSION DATE: SURGEON: ISRAEL RODRIGEZ MD DATE OF OPERATION: 05/03/2018 PROCEDURE: Lead portion of permanent pacemaker placement. INDICATION: Bradycardia with junctional escape rhythm. SURGEON: Rashad Delaney MD DESCRIPTION OF PROCEDURE: After left subclavian was cannulated via modified Seldinger technique via Dr. Delaney. First under fluoroscopic guidance, the RV lead was placed in RV apex without difficulty. After R waves and thresholds were obtained, the right atrial lead was placed in the right atrial appendage without difficulty. Adequate P waves and thresholds were again obtained. The leads were attached to appropriate poles of the generator and the pocket was closed via Dr. Delaney. IMPRESSION: Successful lead portion of permanent pacemaker placement. COMPLICATIONS: None. ESTIMATED BLOOD LOSS: Minimal. DISPOSITION: To the floor, stable. TRANSINT:[id number] Voice Confirmation ID: [id number] DOCUMENT ID: [id number] ISRAEL RODRIGEZ MD at 1412 CC: [id number] DICTATION DATE: 05/03/18 1334 TECHNICIAN PREVENTATIVE MEDICINE: 05/03/18 1401 DEP CLI 05/04/18 [facility] [address] [place] [address]
--- NOTE | ~2018-05-03 | OP ---
PATIENT NAME: YESENIA REYES MEDICAL RECORD: [id number] :32 LOCATION:D.CAT ADMISSION DATE: SURGEON: OBED MOLINA MD DATE OF OPERATION: 05/03/2018 PREOPERATIVE DIAGNOSES: 1. Sick sinus syndrome with junctional escape. 2. Coronary artery disease. 3. Hypertension. 4. Bradycardia. POSTOPERATIVE DIAGNOSES: 1. Sick sinus syndrome with junctional escape. 2. Coronary artery disease. 3. Hypertension. 4. Bradycardia. PROCEDURE: 1. Left subclavian vein dual lead pacemaker placement. 2. Fluoroscopic interpretation. SURGEON: Obed Molina MD CO-SURGEON: Mikhail Vernon MD REPORT OF OPERATION: The patient's left chest was prepped and draped in sterile fashion. A total of 25 mL of 1% lidocaine with epinephrine was infused into the surrounding tissues. A skin incision was made on the left superior lateral chest and a subcutaneous pouch was made over the pectoral fascia. The left subclavian vein was accessed times 2 and guidewires were advanced with ease. Fluoro was used to note that the wires were in good position in the venous system. The dilator trocar devices were placed over the wires and the wires and dilators were removed. The leads were advanced through the trocars. Once they were noted to be in good position in the venous system, then Dr. Vernon positioned them appropriately in the atrium and ventricle. Once the leads were noted to be positioned appropriately and functioning then these were sutured into place with 0 Ti-Cron. The leads were then affixed to the pacemaker and placed in the subcutaneous pouch. The subcutaneous tissues were irrigated out and then reapproximated with interrupted 3-0 Vicryls and the skin was closed with running subcutaneous 5-0 Monocryl. COMPLICATIONS: None. CONDITION: Stable. ANESTHESIA: Local MAC. BLOOD LOSS: Minimal. TRANSINT:[id number] Voice Confirmation ID: [id number] DOCUMENT ID: [id number] OPERATIVE REPORT [id number] YESENIA REYES OBED MOSS MD at 1309 CC: [id number] DICTATION DATE: 05/03/18 1339 CENTER MACHINE OPERATOR: 05/03/18 1403 DEP CLI 05/04/18 [place] [address]
--- NOTE | ~2018-05-03 | HEMODYNAMI ---
PATIENT:YESENIA REYES MEDICAL RECORD: [id number] : 32 LOCATION:DSergioCAT ADMISSION DATE: 05/03/18 Generatedon:05/03/201813:44 Patient name: YESENIA REYES Patient #: [id number] SSN: : [birth year] Date of study: 05/03/2018 Page: Of Hemodynamic Procedure Report Patient Data Patient Demographics Procedure consent was obtained First Name: YESENIA Gender: Female Last Name: AMY : 1930 [facility] Initial: [place] Age: 87 year(s) Patient #: [id number] Race: Unknown Additional ID: [id number] Contact details Address: [address] [place] [address] State: [place] City: [facility] Zip code: [address] Admission Admission Data Admission Date: 05/03/2018 Admission Time: 11:01 Procedure Procedure Types Cath Procedure Diagnostic Procedure PPM/ICD PPM Dual Implant Procedure Description Procedure Date Procedure Date: 05/03/2018 Procedure Start Time: 13:10 Procedure End Time: 13:44 Procedure Staff Name Function Mikhail Bear MD Performing Physician Rashad Delaney MD Assisting physician Mohini Yepez RN Nurse Marlene Nicholas RT Scrub Marcin Rollins RT Monitor Procedure Data Cath Procedure Fluoroscopy Diagnostic fluoroscopy Total fluoroscopy Time: 1.8 time: 1.8 min min Diagnostic fluoroscopy Total fluoroscopy dose: 37 dose: 37 mGy mGy Contrast Material Contrast Material Type Amount (ml) Isovue 300 0 Estimated blood loss: 5 ml Procedure Complications No complications Procedure Medications Medication Administration Route Dosage Oxygen NC 2 l/min Ancef (1Gm/50ml NS) I.V.P.B 1 g Ancef Irrigation Topical 1 g (1gm/500ml NS) Bupivacaine 0.5% 10 ml Lidocaine 1% with added to field 20 ml Epi Versed I.V. 1 mg Fentanyl I.V. 50 mcg Versed I.V. 1 mg Fentanyl I.V. 50 mcg Hemodynamics Rest Heart Rate: 37 (bpm) Snapshots Pre Cath Intra NCS Post Cath Vital Signs Time Heart Resp SPO2 etCO2 NIBP (mmHg) Rhythm Pain Sedation Rate (ipm) (%) (mmHg) Status Level (bpm) 12:58:24 41 13 97 25.4 159/63(127) SB 0 (11) 10(A) , No pain 13:03:31 43 18 94 21.4 165/59(125) SB 0 (11) 10(A) , No pain 13:07:47 40 12 95 29.1 157/59(117) SB 0 (11) 10(A) , No pain 13:12:01 42 27 97 21.4 148/60(112) SB 0 (11) 10(A) , No pain 13:16:42 41 14 95 22.2 141/62(98) SB 0 (11) 9(A) , No pain 13:22:36 47 14 93 20 141/58(101) SB 0 (11) 9(A) , No pain 13:26:48 44 13 93 30.2 134/49(94) SB 0 (11) 9(A) , No pain 13:30:50 60 16 94 32.8 129/59(95) Paced 0 (11) 10(A) , No pain 13:34:54 63 14 92 32.8 133/56(99) Paced 0 (11) 10(A) , No pain 13:38:51 91 15 96 32.1 126/74(101) Paced 0 (11) 10(A) , No pain 13:42:51 82 15 98 3.7 125/60(105) Paced 0 (11) 10(A) , No pain Medications Time Medication Route Dose Verified Delivered Reason Notes Effectiv eness by by 13:04:14 Oxygen NC 2 Mikhail Buffie used for l/min [facility] Froy Yepez legal word processor 13:04:23 Ancef I.V.P.B 1 g Mikhail Buffie used for (1Gm/50ml [facility] Froy Yepez legal word processor NS) 13:04:33 Ancef Topical 1 g Mikhail Buffie used for Irrigation [facility] Froy Yepez legal word processor (1gm/500ml NS) 13:04:54 Bupivacaine on 10 ml Mikhail Solorzano for local 0.5% field St Froy Delaney MD anesthetic 13:05:02 Lidocaine added 20 ml Mikhail Solorzano for local 1% with Epi to [facility] Froy Delaney MD anesthetic field 13:07:46 Versed I.V. 1 mg [address] Rajan for [facility] Froy Yepez RN sedation 13:07:52 Fentanyl I.V. 50 Mikhail Rajan for mcg [facility] Froy Yepez RN sedation 13:12:54 Versed I.V. 1 mg [address]an for [facility] Froy Yepez RN sedation 13:12:58 Fentanyl I.V. 50 Mikhail Rajan for sarah Mary RN sedation Procedure Log Time Note 12:37:11 Time tracking: Regular hours (M-F 7:00 - 5:00) 12:37:14 Plan of Care:Hemodynamics will remain stable., Cardiac rhythm will remain stable., Comfort level will be maintained., Respiratory function will remain adequate., Patient/ family verbilizes understanding of procedure., Procedure tolerated without complication., Recovers from procedure without complications.. 12:37:29 Mohini Yepez RN sent for patient. Start room use. 12:46:02 Patient received from Pre/Post Procedure Room to CCL 3 Alert and oriented. Tansferred to table in Supine position. 12:46:05 Warm blankets applied, and hansa hugger turned on for patient comfort. 12:46:05 Correct patient and procedure confirmed by team. 12:46:07 Signed procedure consent form obtained from patient. 12:46:08 ECG and BP/O2 sat monitors applied to patient. 12:47:39 Full Disclosure recording started 12:56:07 Vital chart was started 12:56:36 Rhythm: sinus bradycardia 12:57:02 H&P Date Dictated: 04/27/2018 Within 30 days and on chart., H&P Addendum completed by physician on day of procedure. (MUST COMPLETE FOR ALL OUTPATIENTS). 12:57:03 Pre-procedure instructions explained to patient. 12:57:04 Pre-op teaching completed and patient verbalized understanding. 12:57:07 Family in waiting room. 12:57:08 Patient NPO since Midnight. 12:57:34 Baseline sample Acquired. 13:00:23 Is the patient allergic to Iodine/contrast media? No. 13:00:43 Is patient on blood thinner?No 13:01:03 Patient diabetic? Yes. 13:01:05 If diabetic: On Metformin? No 13:02:30 Previous problem with sedation/anesthesia? No ? 13:02:31 Snore? Yes 13:02:32 Sleep apnea? No 13:02:33 Deviated septum? No 13:02:34 Opens mouth fully? Yes 13:02:35 Sticks out tongue? Yes 13:02:46 Airway obstruction? No ? 13:02:51 Dentures? No ? 13:02:55 Patient pain scale 0/10 ?. 13:03:05 IV patent on arrival in left forearm with 0.9% NaCl at [facility]. 13:03:07 Lab results completed and on chart. 13:03:14 Left chest area was prepped with dura-prep and draped in sterile fashion 13:03:16 Alarms reviewed by R. N. 13:03:16 Sharps counted by scrub and verified by R.N. 13:03:25 Medtronic healthcare sales representative Gideon Espana present for procedure. 13:04:14 Oxygen 2 l/min NC was administered by Mohini Yepez RN; used for procedure; 13:04:23 Ancef (1Gm/50ml NS) 1 g I.V.P.B was administered by Mohini Yepez RN; used for procedure; 13:04:33 Ancef Irrigation (1gm/500ml NS) 1 g Topical was administered by Mohini Yepez RN; used for procedure; 13:04:54 Bupivacaine 0.5% 10 ml on field was administered by Rashad Delaney MD; for local anesthetic; 13:05:02 Lidocaine 1% with Epi 20 ml added to field was administered by Rashad Delaney MD; for local anesthetic; 13:05:31 Pre sharps counted by scrub and verified by RN: Sutures: 7; Sponges: 5; Stick needles: 2; Skin needles: 2; Blade: 1; Cautery: 1 13:05:34 Grounding pad site Left thigh. 13:05:36 Grounding pad site free from injury. 13:05:42 Use device set TRACY PPM 13:05:49 2-0 Ticron Multipack ([id number]) opened to sterile field. 13:05:50 3-0 Vicryl Single Pack [id number] opened to sterile field. 13:05:50 5-0 Monocryl PS2 [id number] opened to sterile field. 13:05:51 Cautery Tip Flatlock Sewing Machine Operator opened to sterile field. 13:05:51 Cautery Pushbutton Pencil opened to sterile field. 13:05:52 Mepilex Dressing ([id number]) opened to sterile field. 13:05:54 Immobilizer Large opened to sterile field. ::17 --------ALL STOP TIME OUT------ : Final Timeout: patient, procedure, and site verified with staff and physician. All members of the team are in agreement. 13::23 Left chest site verified by team. 13:: Physical assessment completed. ASA score P 2 - A patient with mild systemic disease as per Mikhail Bear MD. 13:07:29 Sedation plan: IV Moderate Sedation Medication:Versed, Fentanyl 13:07:46 Versed 1 mg I.V. was administered by Mohini Yepez RN; for sedation; 13:07:52 Fentanyl 50 mcg I.V. was administered by Mohini Yepez RN; for sedation; 13:10:42 Procedure started. 13:10:59 Lidocaine 1% w/epi and Bupivacaine 0.5% was administered to left subclavicular area by Rashad Delaney MD . 13:12:54 Versed 1 mg I.V. was administered by Mohini Yepez RN; for sedation; 13:12:58 Fentanyl 50 mcg I.V. was administered by Mohini Yepez RN; for sedation; 13:14:01 Incision made to left subclavicular area. 13:14:42 Generator pocket made/opened. 13:16:21 Left subclavian vein accessed with 7Fr Peel Away Sheath. 13:17:08 Medtronic Adapta PPM Dual Generator [id number] opened to sterile field. 13:17:09 Medtronic 4074-52 PPM Lead opened to sterile field. 13:17:09 Medtronic 4574-45 PPM Lead opened to sterile field. 13:20:07 Left subclavian vein accessed with 7Fr Peel Away Sheath. 13:20:12 Ventricular lead inserted and advanced. 13:20:25 Atrial lead inserted and advanced. 13:20:42 Ventricular lead positioned. 13:20:49 Ventricular lead tested. 13:20:52 Peel-a-way sheath was split and removed. 13:21:56 Atrial lead positioned. 13:23:16 Atrial lead tested. 13:23:36 Peel-a-way sheath was split and removed. 13:28:55 Ventricular lead attachment was completed with 2-0 ticron. 13:30:11 Atrial lead attachment was completed with 2-0 ticron. 13:30:30 Parameters-- Generator: Mode: AAIR=DDDR. Lower Rate: 60bpm. Upper Rate: 130bpm. 13:31:04 Parameters--Ventricular P/R Wave: 5.7mV. Current: 0.4mA; Threshold: 0.5V; Impedence: 1165OHMS. 13:31:23 Parameters--Atrial P/R Wave: 1.2mV. Current: 0.5mA; Threshold: 1.0V; Impedence: 541OHMS. 13:32:28 PPM Dual was attached to lead(s) and inserted into pocket. 13:32:41 Generator was sutured in place with 2-0 ticron. 13:34:39 Device pocket was irrigated with Ancef. 13:35:39 Subcutaneous closure was completed with 3-0 vicryl. 13:36:43 Skin closure was completed with 5-0 monocryl. 13:36:58 Lt Chest incision was dressed with Mepilex dressing. 13:37:02 Procedure ended.(Physican Out) 13:37:45 Post sharps counted by scrub and verified by RN: Sutures: 7; Sponges: 5; Stick needles: 2; Skin needles: 2; Blade: 1; Cautery: 1 13:37:58 Fluoroscopy time 01.80 minutes. 13:38:29 Fluoroscopy dose: 37 mGy 13:38:29 Flurop Dose total: 37 13:38:36 Contrast amount:Isovue 300 0ml. 13:38:38 Sharps counted by scrub and verified by R.N. 13:38:42 Insertion/operative site no bleeding no hematoma. 13:38:54 Post Procedure Pulses reassessed and unchanged 13:39:39 Post-procedure physical assessment completed. ASA score P 2 - A patient with mild systemic disease as per Mikhail Bear MD. 13:39:43 Post procedure rhythm: paced 13:40:10 Estimated blood loss: 5 ml 13:40:12 Post procedure instruction explained to patient.Patient verbalizes understanding. 13:40:12 Patient needs reinforcement of post procedure teaching. 13:40:20 Procedure and supply charges have been captured, reviewed, submitted and are correct. 13:40:23 Procedure Complication : No complications 13:44:01 Vital chart was stopped 13:44:02 See physician's report for complete and final results. 13:44:08 Report given to PCU. 13:44:11 Patient transfered to PCU with Bed. 13:44:13 Procedure ended. 13:44:13 Full Disclosure recording stopped 13:44:17 End room use (Document Last) Device Usage Item Name Manufacture Quantity Catalog Hospital Part Current Minimal Lot# / Number Charge Number Stock Stock Serial# Code 2-0 Ticron Ethicon 0 [id number] 024098 84165 [id number] 5 Multipack ([id number]) 3-0 Vicryl Ethicon 1 [id number] 383153 732530 667149 5 Single Pack [id number] 5-0 Monocryl Ethicon 1 [id number] 753218 470228 675026 5 PS2 Y495G Cautery Tip Microtek 1 [id number] 492098 466657 000374 5 [employer] Cautery Microtek 1 [id number] 496627 52759 161915 5 Pushbutton Medical Inc. Pencil Mepilex Cardinal 1 644342 466020 841273 964332 5 [facility] ([id number]) Immobilizer Cardinal 1 [id number] 706068 191375 984344 5 Large [facility] Medtronic Medtronic 1 [id number] 212342 003665 5 [id number] Adapta PPM EXP Dual 3-14-19 Generator ADDR01 Medtronic Medtronic 1 4074-52 765244 864597 5 [id number] 4074-52 PPM EXP Lead 1-30-20 Medtronic Medtronic 1 4574-45 916169 651731 5 [id number] 4574-45 PPM EXP 3-7-20 Lead Signature Audit Stickney Stage Time Signature Unsigned Intra-Procedure 05/03/2018 Marcin Rollins 1:44:38 PM RT(R) Signatures Monitor : Marcin Rollins RT Signature : Date : Time : [facility] [address] [place] [address]
[~2018-05-03 11:01] MED LIST changes: +MECLIZINE HCL25 MG PO
[2018-05-03 11:46] VITALS: BP 157/48; BMI 28.7
[2018-05-03 11:54] LABS: HEMATOCRIT 33.9 % (36.0-48.0); HEMOGLOBIN 11.3 g/dL (12-16); MCH 30.1 pg (26.0-34.0); MCHC 33.3 g/dL (31.0-37.0); MCV 90.2 fL (80.0-100.0); MEAN PLATELET VOLUME 9.4 fL (7.4-10.4); RBC 3.76 10x6/uL (4.00-5.40); RDW 13.5 % (11.5-14.5); WBC 6.2 10x3/uL (4.8-10.8)
[2018-05-03 12:04] LABS: PROTIME 12.8 SECONDS (11.6-15.0)
[2018-05-03 12:07] LABS: ANION GAP 10.6 mmol/L (8-16); CALCIUM 9.2 mg/dL (8.5-10.1); CARBON DIOXIDE 25.4 mmol/L (21.0-32.0); CREATININE - SERUM 1.3 mg/dL (0.6-1.3)
[2018-05-03 14:25] VITALS: BP 118/54; Ht 170.2 cm; Wt 83.2 kg
[2018-05-03 20:00] VITALS: BP 140/90
[2018-05-04] VITALS: BP 141/51
[2018-05-04 04:00] VITALS: BP 129/69
[2018-05-04 07:51] VITALS: BP 137/53
[2018-05-04 11:25] VITALS: BP 126/66
== END 2018-05-04 15:29 ==
LOC: D.CATH 11:01 → D.M2 13:54 → D.CATH 05-04 15:29
PROVIDERS: Internal Medicine Interventional Cardiology
DX: I49.5 Sick sinus syndrome (principal); I10 Essential (primary) hypertension; I25.10 Atherosclerotic heart disease of native coronary artery without angina pectoris; Z01.812 Encounter for preprocedural laboratory examination

== ENCOUNTER → 2018-05-20 13:48 | Outpatient (CLI) | payer MEDICARE, BC ==
[2018-05-03 14:25] VITALS: BMI 28.7
[2018-05-20 15:00] LABS: APPEARANCE CLEAR (CLEAR); BILIRUBIN NEGATIVE (NEGATIVE); COLOR YELLOW (YELLOW); GLUCOSE NEGATIVE (NEGATIVE); KETONE NEGATIVE (NEGATIVE); NITRITE NEGATIVE (NEGATIVE); PROTEIN NEGATIVE (NEGATIVE); UROBILINOGEN NORMAL (NORMAL)
== END | disposition home or self-care (01) ==
LOC: D.LABREF 13:48
PROVIDERS: Family Medicine
DX: R68.89 Other general symptoms and signs (principal)

== ENCOUNTER 2018-08-25 12:49 | Inpatient (IN) | payer MEDICARE, BC ==
[~2018-08-25] VITALS: Ht 170.2 cm; Wt 78.3 kg
[2018-08-25 13:31] VITALS: BP 206/73
[2018-08-25 13:53] LABS: BASOPHILS 0.1 % (0-2); EOSINOPHILS 0.1 % (0-7); HEMATOCRIT 39.1 % (36.0-48.0); IMMATURE GRANULOCYTES 0.3 % (0-5); LYMPHOCYTES 3.7 % (15-50); MCH 31.4 pg (26.0-34.0); MCHC 33.2 g/dL (31.0-37.0); MCV 94.4 fL (80.0-100.0); MEAN PLATELET VOLUME 9.5 fL (7.4-10.4); MONOCYTES 8.2 % (2-11); NEUTROPHILS 87.6 % (40-80); PLATELET COUNT 235 10x3/uL (130-400); RBC 4.14 10x6/uL (4.00-5.40); RDW 12.4 % (11.5-14.5); WBC 10.4 10x3/uL (4.8-10.8)
[2018-08-25 14:07] LABS: ALBUMIN 3.2 g/dL (3.4-5.0); ALKALINE PHOSPHATASE 156 U/L (46-116); ALT (SGPT) 46 U/L (10-68); BILIRUBIN - TOTAL 0.72 mg/dL (0.2-1.3); CALC OSMOLALITY 271 mosm/kg (275-300); CALCIUM 9.2 mg/dL (8.5-10.1); CARBON DIOXIDE 25.9 mmol/L (21.0-32.0); CHLORIDE - SERUM 96 mmol/L (98-107); CREATININE - SERUM 1.2 mg/dL (0.6-1.3); POTASSIUM - SERUM 3.5 mmol/L (3.5-5.1); PROTEIN - SERUM 7.1 g/dL (6.4-8.2); SODIUM 132 mmol/L (136-145); UREA NITROGEN 22 mg/dL (7-18); eGFR NON AFRICAN AMERICAN 45 mL/min (90-120)
[2018-08-25 14:08] LABS: GLUCOSE 169 mg/dL (74-106)
[2018-08-25 14:18] LABS: CREATINE KINASE 43 UL (21-215); TROPONIN-I 0.022 ng/mL (0.000-0.060)
[2018-08-25 14:24] LABS: APPEARANCE CLEAR (CLEAR); BILIRUBIN NEGATIVE (NEGATIVE); COLOR STRAW (YELLOW); GLUCOSE NEGATIVE (NEGATIVE); KETONE NEGATIVE (NEGATIVE); NITRITE POSITIVE (NEGATIVE); PROTEIN 2+ mg/dL (NEGATIVE); SPECIFIC GRAVITY 1.015 (1.005-1.020); UROBILINOGEN NORMAL (NORMAL)
[2018-08-25 14:26] LABS: AMORPHOUS SEDIMENT <1+ /lpf (NONE SEEN); BACTERIA MANY /hpf (NONE SEEN); EPITHELIAL CELLS 0-5 /hpf (0-5); MUCUS <1+ /lpf (NONE SEEN)
[2018-08-25 14:31] VITALS: BP 186/76
[2018-08-25 15:01] VITALS: BP 164/61
[2018-08-25 18:42] VITALS: BMI 22.6
[2018-08-25 20:58] VITALS: BP 120/44
[2018-08-26] VITALS: BP 158/52
[2018-08-26 05:22] VITALS: BP 125/53
[2018-08-26 06:50] LABS: ANION GAP 10.2 mmol/L (8-16); CALCIUM 8.3 mg/dL (8.5-10.1); CARBON DIOXIDE 25.5 mmol/L (21.0-32.0); CREATININE - SERUM 1.2 mg/dL (0.6-1.3); POTASSIUM - SERUM 3.7 mmol/L (3.5-5.1)
[2018-08-26 06:59] LABS: BASOPHILS 0.1 % (0-2); EOSINOPHILS 0.8 % (0-7); HEMATOCRIT 32.9 % (36.0-48.0); IMMATURE GRANULOCYTES 0.3 % (0-5); LYMPHOCYTES 11.7 % (15-50); MCH 31.2 pg (26.0-34.0); MCHC 33.4 g/dL (31.0-37.0); MCV 93.2 fL (80.0-100.0); MEAN PLATELET VOLUME 9.9 fL (7.4-10.4); MONOCYTES 12.8 % (2-11); NEUTROPHILS 74.3 % (40-80); PLATELET COUNT 229 10x3/uL (130-400); RBC 3.53 10x6/uL (4.00-5.40); RDW 12.4 % (11.5-14.5)
[2018-08-26 08:30] VITALS: BP 130/65
[2018-08-26 11:51] VITALS: BP 148/80
[2018-08-26 13:49] VITALS: Ht 170.2 cm; Wt 78.3 kg
[2018-08-26 16:06] VITALS: BP 159/79
[2018-08-26 20:00] VITALS: BP 133/80
[2018-08-27 04:59] VITALS: BP 168/71
[2018-08-27 07:07] LABS: BASOPHILS 0.3 % (0-2); EOSINOPHILS 2.1 % (0-7); HEMATOCRIT 32.7 % (36.0-48.0); HEMOGLOBIN 10.9 g/dL (12-16); IMMATURE GRANULOCYTES 0.3 % (0-5); LYMPHOCYTES 18.9 % (15-50); MCHC 33.3 g/dL (31.0-37.0); MCV 92.9 fL (80.0-100.0); MEAN PLATELET VOLUME 10.1 fL (7.4-10.4); MONOCYTES 15.8 % (2-11); NEUTROPHILS 62.6 % (40-80); PLATELET COUNT 236 10x3/uL (130-400); RBC 3.52 10x6/uL (4.00-5.40); RDW 12.4 % (11.5-14.5); WBC 6.3 10x3/uL (4.8-10.8)
[2018-08-27 07:11] LABS: ANION GAP 13.9 mmol/L (8-16); CALCIUM 8.7 mg/dL (8.5-10.1); CARBON DIOXIDE 22.7 mmol/L (21.0-32.0); CREATININE - SERUM 1.1 mg/dL (0.6-1.3); POTASSIUM - SERUM 3.6 mmol/L (3.5-5.1)
[2018-08-27 10:01] VITALS: BP 172/59
[2018-08-27 11:36] VITALS: BP 153/77
[2018-08-27 16:00] VITALS: BP 150/57
[2018-08-27 21:10] VITALS: BP 170/64
[2018-08-28 05:13] VITALS: BP 172/74
[2018-08-28 06:10] LABS: BASOPHILS 0.3 % (0-2); EOSINOPHILS 3.1 % (0-7); HEMATOCRIT 33.4 % (36.0-48.0); HEMOGLOBIN 11.2 g/dL (12-16); IMMATURE GRANULOCYTES 0.3 % (0-5); LYMPHOCYTES 22.5 % (15-50); MCH 31.2 pg (26.0-34.0); MCHC 33.5 g/dL (31.0-37.0); MEAN PLATELET VOLUME 9.7 fL (7.4-10.4); MONOCYTES 17.5 % (2-11); NEUTROPHILS 56.3 % (40-80); PLATELET COUNT 274 10x3/uL (130-400); RBC 3.59 10x6/uL (4.00-5.40); RDW 12.3 % (11.5-14.5); WBC 5.9 10x3/uL (4.8-10.8)
[2018-08-28 06:34] LABS: ANION GAP 12.5 mmol/L (8-16); CALCIUM 9.2 mg/dL (8.5-10.1); CARBON DIOXIDE 27.2 mmol/L (21.0-32.0); CREATININE - SERUM 0.9 mg/dL (0.6-1.3); POTASSIUM - SERUM 3.7 mmol/L (3.5-5.1)
[2018-08-28 20:00] VITALS: BP 179/80
[2018-08-29] VITALS: BP 168/69
[2018-08-29 04:00] VITALS: BP 172/65
[2018-08-29 05:32] LABS: BASOPHILS 0.5 % (0-2); EOSINOPHILS 3.2 % (0-7); HEMATOCRIT 32.5 % (36.0-48.0); HEMOGLOBIN 10.8 g/dL (12-16); IMMATURE GRANULOCYTES 0.4 % (0-5); LYMPHOCYTES 39.5 % (15-50); MCH 30.6 pg (26.0-34.0); MCHC 33.2 g/dL (31.0-37.0); MCV 92.1 fL (80.0-100.0); MEAN PLATELET VOLUME 9.6 fL (7.4-10.4); MONOCYTES 12.2 % (2-11); NEUTROPHILS 44.2 % (40-80); PLATELET COUNT 303 10x3/uL (130-400); RBC 3.53 10x6/uL (4.00-5.40); RDW 12.3 % (11.5-14.5); WBC 5.6 10x3/uL (4.8-10.8)
[2018-08-29 05:41] LABS: ANION GAP 10.4 mmol/L (8-16); CREATININE - SERUM 0.9 mg/dL (0.6-1.3); POTASSIUM - SERUM 3.4 mmol/L (3.5-5.1)
[2018-08-29 08:38] VITALS: BP 172/60
[2018-08-29 12:15] VITALS: BP 188/87
[2018-08-29 15:59] VITALS: BP 171/63
[2018-08-29 21:24] VITALS: BP 151/64
[2018-08-30] VITALS: BP 147/67
[2018-08-30 04:44] VITALS: BP 139/53
[2018-08-30 05:43] LABS: BASOPHILS 0.6 % (0-2); EOSINOPHILS 4.6 % (0-7); HEMATOCRIT 34.3 % (36.0-48.0); HEMOGLOBIN 11.5 g/dL (12-16); IMMATURE GRANULOCYTES 1.1 % (0-5); LYMPHOCYTES 40.2 % (15-50); MCH 31.1 pg (26.0-34.0); MCHC 33.5 g/dL (31.0-37.0); MCV 92.7 fL (80.0-100.0); MEAN PLATELET VOLUME 9.6 fL (7.4-10.4); MONOCYTES 13.6 % (2-11); NEUTROPHILS 39.9 % (40-80); PLATELET COUNT 341 10x3/uL (130-400); RDW 12.2 % (11.5-14.5); WBC 5.5 10x3/uL (4.8-10.8)
[2018-08-30 06:05] LABS: ANION GAP 7.4 mmol/L (8-16); CALCIUM 8.9 mg/dL (8.5-10.1); CARBON DIOXIDE 32.2 mmol/L (21.0-32.0); POTASSIUM - SERUM 3.6 mmol/L (3.5-5.1)
[2018-08-30 07:30] VITALS: BP 155/64
[2018-08-30 11:00] VITALS: BP 151/79
[2018-08-30 15:00] VITALS: BP 131/56
[2018-08-30] MEDS ORDERED: LISINOPRIL10 MG PO (17:48)
[2018-08-30] MEDS ORDERED: Levaquin PO (17:48)
[2018-08-30] MEDS ORDERED: LEVAQUIN250 MG PO (17:49)
[2018-08-30 20:00] VITALS: BP 162/67
[2018-08-31] VITALS: BP 141/52
[2018-08-31 06:37] VITALS: BP 145/59
[2018-08-31 09:00] VITALS: BP 152/71
== END 2018-08-31 13:42 | disposition home health service (06) | DRG 872 ==
LOC: D.ER 12:49 → D.M2 15:54 → D.EDHOLD 15:54 → D.M2 17:18
PROVIDERS: Family Medicine
DX: A41.50 Gram-negative sepsis, unspecified (principal); N39.0 Urinary tract infection, site not specified; F13.20 Sedative, hypnotic or anxiolytic dependence, uncomplicated; E11.9 Type 2 diabetes mellitus without complications; I10 Essential (primary) hypertension; Z95.0 Presence of cardiac pacemaker; J44.9 Chronic obstructive pulmonary disease, unspecified; Z86.73 Personal history of transient ischemic attack (TIA), and cerebral infarction without residual deficits

== ENCOUNTER 2018-09-22 11:36 | Emergency (ER) | payer MEDICARE, BC ==
[~2018-09-22] VITALS: Ht 170.2 cm; Wt 75.0 kg
[~2018-09-22 11:36] MED LIST changes: +LEVAQUIN250 MG PO; +Levaquin PO
[2018-09-22 11:47] VITALS: Ht 170.2 cm; Wt 75.0 kg
[2018-09-22 12:45] LABS: BASOPHILS 0.6 % (0-2); HEMATOCRIT 37.5 % (36.0-48.0); HEMOGLOBIN 12.7 g/dL (12-16); IMMATURE GRANULOCYTES 0.2 % (0-5); MCH 31.4 pg (26.0-34.0); MCHC 33.9 g/dL (31.0-37.0); MCV 92.8 fL (80.0-100.0); MEAN PLATELET VOLUME 9.4 fL (7.4-10.4); MONOCYTES 8.5 % (2-11); NEUTROPHILS 67.7 % (40-80); PLATELET COUNT 275 10x3/uL (130-400); RBC 4.04 10x6/uL (4.00-5.40); RDW 12.7 % (11.5-14.5); WBC 4.9 10x3/uL (4.8-10.8)
[2018-09-22 12:55] LABS: ALBUMIN 3.5 g/dL (3.4-5.0); ALKALINE PHOSPHATASE 108 U/L (46-116); ALT (SGPT) 17 U/L (10-68); CALC OSMOLALITY 267 mosm/kg (275-300); CARBON DIOXIDE 29.8 mmol/L (21.0-32.0); CHLORIDE - SERUM 95 mmol/L (98-107); GLUCOSE 141 mg/dL (74-106); POTASSIUM - SERUM 4.2 mmol/L (3.5-5.1); PROTEIN - SERUM 7.2 g/dL (6.4-8.2); SODIUM 132 mmol/L (136-145); UREA NITROGEN 16 mg/dL (7-18); eGFR NON AFRICAN AMERICAN 55 mL/min (90-120)
[2018-09-22 13:00] LABS: TROPONIN-I < 0.017 ng/mL (0.000-0.060)
[2018-09-22 13:23] LABS: APPEARANCE CLEAR (CLEAR); BILIRUBIN NEGATIVE (NEGATIVE); COLOR YELLOW (YELLOW); GLUCOSE 100 mg/dL (NEGATIVE); KETONE NEGATIVE (NEGATIVE); NITRITE NEGATIVE (NEGATIVE); PROTEIN 1+ mg/dL (NEGATIVE); RED CELLS - URINE RARE /hpf (0-5); UROBILINOGEN NORMAL (NORMAL); WHITE CELLS - URINE NSEEN /hpf (0-5)
[2018-09-22] MEDS ORDERED: PRINIVIL20 MG PO (13:49)
[2018-09-22 14:44] VITALS: BP 165/70
== END 2018-09-22 14:18 | disposition home or self-care (01) ==
LOC: D.ER 11:36
PROVIDERS: Emergency Medicine
DX: I10 Essential (primary) hypertension (principal); Z86.73 Personal history of transient ischemic attack (TIA), and cerebral infarction without residual deficits; E11.9 Type 2 diabetes mellitus without complications; Z95.0 Presence of cardiac pacemaker; J44.9 Chronic obstructive pulmonary disease, unspecified; K21.9 Gastro-esophageal reflux disease without esophagitis

== ENCOUNTER 2019-01-20 12:16 | Inpatient (IN) | payer MEDICARE, BC ==
[~2019-01-20] VITALS: Ht 170.2 cm; Wt 79.4 kg
[~2019-01-20 12:16] MED LIST changes: +PRINIVIL20 MG PO
[2019-01-20 12:50] LABS: BASOPHILS 0.1 % (0-2); EOSINOPHILS 1.4 % (0-7); HEMATOCRIT 36.3 % (36.0-48.0); HEMOGLOBIN 12.7 g/dL (12-16); IMMATURE GRANULOCYTES 3.5 % (0-5); LYMPHOCYTES 11.3 % (15-50); MCH 31.9 pg (26.0-34.0); MCV 91.2 fL (80.0-100.0); MEAN PLATELET VOLUME 9.3 fL (7.4-10.4); MONOCYTES 11.4 % (2-11); NEUTROPHILS 72.3 % (40-80); PLATELET COUNT 249 10x3/uL (130-400); RBC 3.98 10x6/uL (4.00-5.40); RDW 12.4 % (11.5-14.5); WBC 6.9 10x3/uL (4.8-10.8)
[2019-01-20 13:10] LABS: ALBUMIN 2.3 g/dL (3.4-5.0); ALKALINE PHOSPHATASE 92 U/L (46-116); ALT (SGPT) 49 U/L (10-68); AMYLASE - SERUM 15 U/L (25-115); BILIRUBIN - TOTAL 0.33 mg/dL (0.2-1.3); CALC OSMOLALITY 250 mosm/kg (275-300); CALCIUM 8.4 mg/dL (8.5-10.1); CARBON DIOXIDE 23.8 mmol/L (21.0-32.0); CHLORIDE - SERUM 90 mmol/L (98-107); CREATININE - SERUM 1.1 mg/dL (0.6-1.3); GLUCOSE 141 mg/dL (74-106); LIPASE 92 U/L (73-393); PROTEIN - SERUM 5.7 g/dL (6.4-8.2); SODIUM 123 mmol/L (136-145); UREA NITROGEN 16 mg/dL (7-18); eGFR NON AFRICAN AMERICAN 50 mL/min (90-120)
[2019-01-20 13:11] LABS: TROPONIN-I < 0.017 ng/mL (0.000-0.060)
[2019-01-20 18:25] VITALS: BP 152/90
[2019-01-20 20:00] VITALS: BP 151/64
[2019-01-21] VITALS: BP 157/60
[2019-01-21 04:00] VITALS: BP 138/60
[2019-01-21 06:49] LABS: BASOPHILS 0.2 % (0-2); EOSINOPHILS 0 % (0-7); HEMATOCRIT 32.4 % (36.0-48.0); HEMOGLOBIN 10.8 g/dL (12-16); IMMATURE GRANULOCYTES 2.8 % (0-5); LYMPHOCYTES 8.7 % (15-50); MCH 30.7 pg (26.0-34.0); MCHC 33.3 g/dL (31.0-37.0); MEAN PLATELET VOLUME 8.9 fL (7.4-10.4); MONOCYTES 3.3 % (2-11); RBC 3.52 10x6/uL (4.00-5.40); RDW 12.7 % (11.5-14.5)
[2019-01-21 07:09] LABS: PLATELET COUNT 363 10x3/uL (130-400); WBC 4.2 10x3/uL (4.8-10.8)
[2019-01-21 07:10] LABS: ANION GAP 11.4 mmol/L (8-16); BILIRUBIN - TOTAL 0.16 mg/dL (0.2-1.3); CALCIUM 8.1 mg/dL (8.5-10.1); CARBON DIOXIDE 24.2 mmol/L (21.0-32.0); POTASSIUM - SERUM 3.6 mmol/L (3.5-5.1); PROTEIN - SERUM 5.4 g/dL (6.4-8.2)
[2019-01-21 07:12] LABS: CREATININE - SERUM 0.8 mg/dL (0.6-1.3)
--- NOTE | 2019-01-21 07:41 | NUR ---
PATIENT STATED THAT HER DAUGHTER REMOVED HER GRAND DAUGHTER FROM HER LIST OF PEOPLE TO BE INVOLVED WITH HER CARE AND SHE WANTS HER PUT BACK ON THE LIST. HER NAME IS Nelson Chung AND SHE DID NOT KNOW THE NUMBER BUT WOULD GET IT.
[2019-01-21 09:00] VITALS: BP 152/90
[2019-01-21 09:19] VITALS: Ht 170.2 cm; Wt 79.4 kg
--- NOTE | 2019-01-21 10:19 | NUR ---
ALERT AND ORIENTED WITH GENERALIZED WEAKNESS. DR. LI HERE WITH NEW ORDER FOR FLUID RESTRICTION WITH NON FREE WATER AND S/L IV. DENIES ANY PAIN OR DISCOMFORT. LUNGS CTA AND ABD SOFT WITH BS NOTED. ENCOURAGED TO USE CALL LIGHT FOR ASSIST AND VERBALIZED UNDERSTANDING.
[2019-01-21 14:44] VITALS: BP 169/70
[2019-01-21 18:20] VITALS: BP 142/71
--- NOTE | 2019-01-21 19:49 | NUR ---
RECEIVED REPROT, ASSUMED CARE, SLEEPING, BREATHING EVEN UNLABORED, CALL LIGHT IN REACH, BED LOWEST POSITION, WILL CONTINUE POC
[2019-01-21 20:00] VITALS: BP 116/62
[2019-01-22] VITALS: BP 155/60
[2019-01-22 04:00] VITALS: BP 196/70
--- NOTE | 2019-01-22 04:01 | NUR ---
RN NOTE: AGREE WITH NURSING SUPPORT WORKER ASSESSMENT.
[2019-01-22 06:04] LABS: BASOPHILS 0.1 % (0-2); EOSINOPHILS 0 % (0-7); HEMOGLOBIN 10.5 g/dL (12-16); IMMATURE GRANULOCYTES 1.8 % (0-5); LYMPHOCYTES 8.6 % (15-50); MCH 31.2 pg (26.0-34.0); MCHC 33.9 g/dL (31.0-37.0); MEAN PLATELET VOLUME 8.8 fL (7.4-10.4); MONOCYTES 7.7 % (2-11); NEUTROPHILS 81.8 % (40-80); PLATELET COUNT 397 10x3/uL (130-400); RBC 3.37 10x6/uL (4.00-5.40); RDW 12.6 % (11.5-14.5)
[2019-01-22 06:11] LABS: WBC 6.8 10x3/uL (4.8-10.8)
[2019-01-22 06:26] LABS: ANION GAP 14.3 mmol/L (8-16); CALCIUM 8.9 mg/dL (8.5-10.1); CARBON DIOXIDE 21.5 mmol/L (21.0-32.0); POTASSIUM - SERUM 3.8 mmol/L (3.5-5.1)
[2019-01-22 06:27] LABS: CREATININE - SERUM 1.1 mg/dL (0.6-1.3)
[2019-01-22 09:41] VITALS: BP 163/61
--- NOTE | 2019-01-22 10:35 | NUR ---
ALERT AND ORIENTEDX3 WITH SLIGHT KALSKAG. ABD. SOFT WITH HYPERACTIVE BS WITH CONTINENT LOOSE STOOLX1 THIS AM. EXPIRATORY WHEEZES X4 WITH NON PRODUCTIVE CAOUGH AND CAP REFILL <3 SEC. DENIES ANY SOB AT THIS TIME. INSTRUCTED ON FLUID RESTICTION AND USE OF CALL LIGHTS FOR ASSIST. VERBALIZED UNDERSTANDING.
[2019-01-22 14:08] VITALS: BP 153/60
[2019-01-22 18:25] VITALS: BP 165/75
[2019-01-22 20:00] VITALS: BP 140/69
--- NOTE | 2019-01-22 20:20 | NUR ---
ALERT AND ORIENTED X4. RAE ALARM IN USE FOR PT SAFETY. RESP EVEN AND NONLABORED. BBS COARSE WHEEZES. NONPROD COUGH. SALINE LOCK TO RT FOREARM. NO DISTRESS. GEN WEAKNESS NOTED. SR ELEVATED X2. CL IN REACH.
[2019-01-23] VITALS: BP 136/70
[2019-01-23 04:00] VITALS: BP 148/53
[2019-01-23 07:10] LABS: BASOPHILS 0.1 % (0-2); EOSINOPHILS 0 % (0-7); HEMATOCRIT 35.5 % (36.0-48.0); HEMOGLOBIN 11.9 g/dL (12-16); IMMATURE GRANULOCYTES 2.3 % (0-5); LYMPHOCYTES 8.1 % (15-50); MCH 31.2 pg (26.0-34.0); MCHC 33.5 g/dL (31.0-37.0); MCV 93.2 fL (80.0-100.0); MEAN PLATELET VOLUME 8.8 fL (7.4-10.4); MONOCYTES 7.7 % (2-11); NEUTROPHILS 81.8 % (40-80); RBC 3.81 10x6/uL (4.00-5.40); RDW 12.9 % (11.5-14.5)
[2019-01-23 07:12] LABS: PLATELET COUNT 483 10x3/uL (130-400); WBC 8.7 10x3/uL (4.8-10.8)
[2019-01-23 07:37] LABS: ANION GAP 14.7 mmol/L (8-16); CALCIUM 9.5 mg/dL (8.5-10.1); CREATININE - SERUM 0.9 mg/dL (0.6-1.3); POTASSIUM - SERUM 3.7 mmol/L (3.5-5.1)
[2019-01-23 08:54] VITALS: BP 179/57
--- NOTE | 2019-01-23 12:22 | NUR ---
PATIENT RESTING ON LEFT SIDE. NO NEEDS AT THIS TIME.
[2019-01-23 12:47] VITALS: BP 184/77
--- NOTE | 2019-01-23 13:58 | NUR ---
NUTRITION F/U PT TOLERATING DIABETIC DIET. 25 TO 50% INTAKE RECENT MEALS. WILL CONTINUE TO PROVIDE DIET, MONITOR INTAKE. RD FOLLOWING
[2019-01-23 14:35] LABS: APPEARANCE HAZY (CLEAR); BACTERIA MANY /hpf (NONE SEEN); BILIRUBIN NEGATIVE (NEGATIVE); COLOR YELLOW (YELLOW); EPITHELIAL CELLS 0-5 /hpf (0-5); GLUCOSE 250 mg/dL (NEGATIVE); KETONE NEGATIVE (NEGATIVE); NITRITE POSITIVE (NEGATIVE); PROTEIN TRACE mg/dL (NEGATIVE); RED CELLS - URINE RARE /hpf (0-5); SPECIFIC GRAVITY 1.015 (1.005-1.020); UROBILINOGEN NORMAL (NORMAL); WHITE CELLS - URINE 0-5 /hpf (0-5)
[2019-01-23 17:33] VITALS: BP 150/54
[2019-01-23 20:00] VITALS: BP 170/59
--- NOTE | 2019-01-23 20:30 | NUR ---
PT RESTING IN BED. EYES OPEN SOME CONFUSION. NO SIGNS OF DISTRESS. BREATHING EVEN AND UNLABORED. PT STATES NO PROBLEMS AT THIS TIME. NO IV AT THIS TIME. SKIN CLEAN DRY AND INTACT. BOWEL SOUNDS ACTIVE. NO LOWER LEG SWELLING PRESENT. SCDS ON. BED ALARM ON. BED RAILS UP X2. CALL LIGHT IN REACH. WILL CONTINUE PLAN OF CARE.
--- NOTE | 2019-01-23 21:00 | NUR ---
FSBS 156 4 UNITS INSULIN GIVEN PER SS.
[2019-01-24] VITALS: BP 152/59
[2019-01-24 04:00] VITALS: BP 180/70
--- NOTE | 2019-01-24 04:30 | NUR ---
PT LYING IN BED RESTING, NO SIGNS OF DISTRESS. DENIES NEEDS. BED ALARM ON. CL IN REACH, WILL CONTINUE TO MONITOR
[2019-01-24 07:12] LABS: BASOPHILS 0.2 % (0-2); EOSINOPHILS 0 % (0-7); HEMOGLOBIN 12.1 g/dL (12-16); IMMATURE GRANULOCYTES 4.3 % (0-5); LYMPHOCYTES 8.4 % (15-50); MCH 31.3 pg (26.0-34.0); MCHC 33.6 g/dL (31.0-37.0); MEAN PLATELET VOLUME 8.6 fL (7.4-10.4); MONOCYTES 10.1 % (2-11); PLATELET COUNT 476 10x3/uL (130-400); RBC 3.87 10x6/uL (4.00-5.40); RDW 12.8 % (11.5-14.5)
[2019-01-24 07:18] LABS: WBC 10.9 10x3/uL (4.8-10.8)
[2019-01-24 07:43] LABS: ANION GAP 16.6 mmol/L (8-16); CALCIUM 9.3 mg/dL (8.5-10.1); CARBON DIOXIDE 24.5 mmol/L (21.0-32.0); CREATININE - SERUM 0.9 mg/dL (0.6-1.3); POTASSIUM - SERUM 4.1 mmol/L (3.5-5.1)
[2019-01-24 08:45] VITALS: BP 156/63
--- NOTE | 2019-01-24 10:51 | NUR ---
PATIENT UP IN CHAIR. CHAIR ALARM ON. STATES A SORE THROAT. THERE ARE WHITE SPOTS ON THE BACK OF HER THROAT
[2019-01-24 13:00] VITALS: BP 163/59
[2019-01-24 16:45] VITALS: BP 151/50
--- NOTE | 2019-01-24 16:52 | MORECARE ---
CASE MANAGEMENT DISCHARGE SUMMARY PATIENT: YESENIA REYES LESA UNIT: [id number] ADM DATE: 01/20/19 AGE: 88 : 31 SEX: F ROOM/BED: D.2238 AUTHOR: ROD,DOC PHYSICIAN: REFERRING PHYSICIAN: CHANELL LI MD DATE OF SERVICE: 01/24/19 Discharge Plan Patient Name: YESENIA REYES Facility: [facility]:[place] : 1930 Planned Disposition: Halfway Facility Anticipated Discharge Date: Discharge Date: Expected LOS: Initial Reviewer: [email or web address] Initial Review Date: 01/20/2019 Generated: 01/24/19 5:51 pm Comments DCP- Discharge Planning Updated by [email or web address]: Gina Ramirez on 01/24/19 3:[address] Patient Name: YESENIA REYES Admission Status: ER Accout number: [id number] Admission Date: 01-20-2019 : 1930 Admission Diagnosis:HYPO-OSMOLALITY AND HYPONATREMIA Attending: CHANELL LI Current LOS: 4 Anticipated DC Date: Planned Disposition: Halfway Facility Primary Insurance: MEDICARE A & B Discharge Planning Comments: CM met with patient to complete initial dc planning assessment. CM educated patient on the CM role and verbal consent given by patient to complete assessment. Patient lives at home where she stated that she was independent with her care, but last week she started having friends come to stay with her because she was weak and dizzy. At discharge patient would like to go to [facility] and rehab. LUZ signed and feels this is a safe discharge. Patient has a walker & wheelchair & shower chair at home. CM will continue to follow and will assist as needed with dc plans/needs. Will send referral to [facility] Automation Control Technician: Gina Ramirez DCPIA - Discharge Planning Initial Assessment Updated by [email or web address]: Gina Ramirez on 01/24/19 4:47 pm * Is the patient Alert and Oriented? Yes * How many steps to enter\exit or inside your home? 4 W/RAIL * PCP JEN * Pharmacy [facility] ([place]) * Preadmission Environment Home Alone * ADLs Independent * Equipment Rolling Walker Shower Chair Walker Wheelchair * List name and contact numbers for known caregivers / representatives who currently or will assist patient after discharge: SANDRINE REYES (SON) [phone] SNEHA (DAUGHTER) [phone] * Verbal permission to speak to the caregivers and representatives has been obtained from the patient. N/A * Community resources currently utilized None * Additional services required to return to the preadmission environment? Yes * Can the patient safely return to the preadmission environment? No * Has this patient been hospitalized within the prior 30 days at any hospital? No Patient Name: YESENIA REYES Page 76992 at 1652 All edits/amendments must be made on the electronic document DICTATION DATE: 01/24/191650 FLEET DRIVER: JOHN 01/24/191650 RPT#: [id number] DC DATE: STATUS: ADM IN [facility] [address] [place] [address] END OF REPORT
--- NOTE | 2019-01-24 17:06 | MORECARE ---
CASE MANAGEMENT DISCHARGE SUMMARY PATIENT: YESENIA REYES LESA UNIT: [id number] ADM DATE: 01/20/19 AGE: 88 : 31 SEX: F ROOM/BED: D.2238 AUTHOR: ROD,DOC PHYSICIAN: REFERRING PHYSICIAN: CHANELL LI MD DATE OF SERVICE: 01/24/19 Discharge Plan Patient Name: YESENIA REYES Facility: [facility]:[place] : 1930 Planned Disposition: Mcfp Facility Anticipated Discharge Date: Discharge Date: Expected LOS: Initial Reviewer: [email or web address] Initial Review Date: 01/20/2019 Generated: 01/24/19 6:06 pm Comments DCP- Discharge Planning Updated by [email or web address]: Gina Ramirez on 01/24/19 3:[address] Patient Name: YESENIA REYES Admission Status: ER Accout number: [id number] Admission Date: 01-20-2019 : 1930 Admission Diagnosis:HYPO-OSMOLALITY AND HYPONATREMIA Attending: CHANELL LI Current LOS: 4 Anticipated DC Date: Planned Disposition: Mcfp Facility Primary Insurance: MEDICARE A & B Discharge Planning Comments: CM met with patient to complete initial dc planning assessment. CM educated patient on the CM role and verbal consent given by patient to complete assessment. Patient lives at home where she stated that she was independent with her care, but last week she started having friends come to stay with her because she was weak and dizzy. At discharge patient would like to go to [facility] and rehab. LUZ signed and feels this is a safe discharge. Patient has a walker & wheelchair & shower chair at home. CM will continue to follow and will assist as needed with dc plans/needs. Will send referral to [facility] History Tutor: Gina Ramirez DCPIA - Discharge Planning Initial Assessment Updated by [email or web address]: Gina Ramirez on 01/24/19 4:47 pm * Is the patient Alert and Oriented? Yes * How many steps to enter\exit or inside your home? 4 W/RAIL * PCP JEN * Pharmacy [facility] ([place]) * Preadmission Environment Home Alone * ADLs Independent * Equipment Rolling Walker Shower Chair Walker Wheelchair * List name and contact numbers for known caregivers / representatives who currently or will assist patient after discharge: SANDRINE REYES (SON) [phone] SNEHA (DAUGHTER) [phone] * Verbal permission to speak to the caregivers and representatives has been obtained from the patient. N/A * Community resources currently utilized None * Additional services required to return to the preadmission environment? Yes * Can the patient safely return to the preadmission environment? No * Has this patient been hospitalized within the prior 30 days at any hospital? No External Providers External Provider: [facility] Next Contact Date: Service Request Date: Service Type: Resolution: Reviewer: Comments: Last DP export: 01/24/19 3:52 p Patient Name: YESENIA REYES Page 19130 at 1706 All edits/amendments must be made on the electronic document DICTATION DATE: 01/24/191705 MACHINIST FIRST CLASS: JOHN 01/24/191705 RPT#: [id number] DC DATE: STATUS: ADM IN [facility] [address] [place] [address] END OF REPORT
--- NOTE | 2019-01-24 20:20 | NUR ---
PT RESTING IN BED. SOME CONFUSION. NO SIGNS OF DITRESS. BREATHING EVEN AND UNLABORED. PT STATES NO PROBLEMS AT THIS TIME. IV SITE LT HAND DRESSING CLEAN DRY AND ITNACT. NO SIGNS OF INFECTION. SKIN CLEAN DRY AND ITNACT. BOWEL SOUNDS ACITVE. NO LOWER LEG SWELLING PRESENT. SCDS ON. WILL CONTINUE PLAN OF CARE. CALL LIGHT IN REACH BED ALARM ON. YELLOW GOWN AND WRIST BAND ON. BED LOWERED AND LOCKED. BED RAILS UP X2.
[2019-01-24 22:04] VITALS: BP 163/67
[2019-01-25 01:08] VITALS: BP 145/53
--- NOTE | 2019-01-25 05:23 | NUR ---
PT LYING IN BED RESTING W/O DISTRESS. DENIES NEEDS. CL IN REACH, WILL CONTINUE TO MONITOR
[2019-01-25 06:02] LABS: BASOPHILS 0.2 % (0-2); EOSINOPHILS 0 % (0-7); HEMATOCRIT 34.7 % (36.0-48.0); HEMOGLOBIN 11.7 g/dL (12-16); IMMATURE GRANULOCYTES 4.5 % (0-5); LYMPHOCYTES 9.1 % (15-50); MCH 31.4 pg (26.0-34.0); MCHC 33.7 g/dL (31.0-37.0); MEAN PLATELET VOLUME 8.6 fL (7.4-10.4); MONOCYTES 9.6 % (2-11); NEUTROPHILS 76.6 % (40-80); PLATELET COUNT 464 10x3/uL (130-400); RBC 3.73 10x6/uL (4.00-5.40); WBC 11.4 10x3/uL (4.8-10.8)
[2019-01-25 06:08] VITALS: BP 172/70
[2019-01-25 06:32] LABS: ANION GAP 10.4 mmol/L (8-16); CALCIUM 9.1 mg/dL (8.5-10.1); CARBON DIOXIDE 28.7 mmol/L (21.0-32.0); POTASSIUM - SERUM 4.1 mmol/L (3.5-5.1)
--- NOTE | 2019-01-25 08:06 | NUR ---
PT RESTING IN BED. NO S/S OF ACUTE DISTRESS. CL IN PLACE.
[2019-01-25 08:38] VITALS: BP 180/77
--- NOTE | 2019-01-25 11:36 | MORECARE ---
CASE MANAGEMENT DISCHARGE SUMMARY PATIENT: YESENIA REYES UNIT: [id number] ADM DATE: 01/20/19 AGE: 88 : 31 SEX: F ROOM/BED: D.2238 AUTHOR: ROD,DOC PHYSICIAN: REFERRING PHYSICIAN: CHANELL LI MD DATE OF SERVICE: 01/25/19 Discharge Plan Patient Name: YESENIA REYES Facility: [facility]:[place] : 1930 Planned Disposition: Halfway Facility Anticipated Discharge Date: Discharge Date: Expected LOS: Initial Reviewer: [email or web address] Initial Review Date: 01/20/2019 Generated: 01/25/19 12:35 pm Comments DCP- Discharge Planning Updated by [email or web address]: Fallon Gibson on 01/25/19 10:[address] [facility] with [facility], additional clinical faxed including PT eval. CM will continue to follow and assist with discharge planning/needs. DCP- Discharge Planning Updated by [email or web address]: Gina Ramirez on 01/24/19 3:[address] Patient Name: YESENIA REYES Admission Status: ER Accout number: [id number] Admission Date: 01-20-2019 : 1930 Admission Diagnosis:HYPO-OSMOLALITY AND HYPONATREMIA Attending: CHANELL LI Current LOS: 4 Anticipated DC Date: Planned Disposition: Halfway Facility Primary Insurance: MEDICARE A & B Discharge Planning Comments: CM met with patient to complete initial dc planning assessment. CM educated patient on the CM role and verbal consent given by patient to complete assessment. Patient lives at home where she stated that she was independent with her care, but last week she started having friends come to stay with her because she was weak and dizzy. At discharge patient would like to go to [facility] and rehab. LUZ signed and feels this is a safe discharge. Patient has a walker & wheelchair & shower chair at home. CM will continue to follow and will assist as needed with dc plans/needs. [facility] Exhibition Specialist: Gina Ramirez DCPIA - Discharge Planning Initial Assessment Updated by [email or web address]: Gina Ramirez on 01/24/19 4:47 pm * Is the patient Alert and Oriented? Yes * How many steps to enter\exit or inside your home? 4 W/RAIL * PCP JEN * Pharmacy [facility] ([place]) * Preadmission Environment Home Alone * ADLs Independent * Equipment Rolling Walker Shower Chair Walker Wheelchair * List name and contact numbers for known caregivers / representatives who currently or will assist patient after discharge: SANDRINE REYES (SON) [phone] SNEHA (DAUGHTER) [phone] * Verbal permission to speak to the caregivers and representatives has been obtained from the patient. N/A * Community resources currently utilized None * Additional services required to return to the preadmission environment? Yes * Can the patient safely return to the preadmission environment? No * Has this patient been hospitalized within the prior 30 days at any hospital? No Last DP export: 01/24/19 4:06 p Patient Name: YESENIA REYES Page 85802 at 1136 All edits/amendments must be made on the electronic document DICTATION DATE: 01/25/19 1135 FREQUENCY CHECKER: JOHN 01/25/19 1135 RPT#: [id number] DC DATE: STATUS: ADM IN [facility] [address] [place] [address] END OF REPORT
[2019-01-25 13:04] VITALS: BP 118/60
[2019-01-25 16:57] VITALS: BP 165/70
--- NOTE | 2019-01-25 18:50 | NUR ---
PT RESTING IN BED VISITING WITH SON. NO S/S OF ACUTE DISTRESS. CL IN PLACE.
[2019-01-25 20:00] VITALS: BP 146/73; BP 174/91
--- NOTE | 2019-01-25 20:10 | NUR ---
PT RESTING IN BED. SLIGHT CONFUSION TO SITUATION. NO SIGNS OF DISTRESS. BREATHING EVEN AND UNLABORED. PT STATES NO PROBLEMS AT THIS TIME. IV SITE LT HAND DRESSING CLEAN DRY AND INTACT. NO SIGNS OF INFECTION. BOWEL SOUNDS ACTIVE. SKIN CLEAN DRY AND INTACT. NO LOWER LEG SWELLING PRESENT. BED ALARM ON. YELLOW GOWN AND WRIST BAND ON. BED LOWERED AND LOCKED. BED RAILS UIP X2.
--- NOTE | 2019-01-25 21:00 | NUR ---
FSBS 207 8 UNITS OF INSULIN GIVEN PER SS.
--- NOTE | 2019-01-25 21:49 | NUR ---
EYES CLOSED RESPIRATIONS WITH EASE AND UNLABORED. SR UP X2 CALL LIGHT WITHIN REACH.
[2019-01-26] VITALS: BP 111/51; BP 167/69
[2019-01-26 04:00] VITALS: BP 162/70
[2019-01-26 05:47] LABS: ANION GAP 10.4 mmol/L (8-16); CARBON DIOXIDE 30.4 mmol/L (21.0-32.0); POTASSIUM - SERUM 3.8 mmol/L (3.5-5.1)
[2019-01-26 05:48] LABS: HEMATOCRIT 36.6 % (36.0-48.0); HEMOGLOBIN 12.2 g/dL (12-16); MCH 31.2 pg (26.0-34.0); MCHC 33.3 g/dL (31.0-37.0); MCV 93.6 fL (80.0-100.0); MEAN PLATELET VOLUME 8.7 fL (7.4-10.4); PLATELET COUNT 508 10x3/uL (130-400); RBC 3.91 10x6/uL (4.00-5.40); RDW 13.1 % (11.5-14.5); WBC 12.5 10x3/uL (4.8-10.8)
[2019-01-26 07:04] LABS: LYMPHOCYTES 15 % (15-50); MONOCYTES 12 % (2-11); NEUTROPHILS 55 % (40-80); PLATELET ESTIMATE INCREASED
--- NOTE | 2019-01-26 07:51 | NUR ---
PT RESTING IN BED. CO OF "SHAKY" FSBS-116. PT REQUESTED COFFEE. BROUGHT PT SOME COFFEE. NO S/S OF ACUTE DISTRESS. CL IN PLACE.
[2019-01-26 09:18] VITALS: BP 113/46
[2019-01-26 13:02] VITALS: BP 149/95
--- NOTE | 2019-01-26 14:17 | MORECARE ---
CASE MANAGEMENT DISCHARGE SUMMARY PATIENT: YESENIA REYES [place] UNIT: [id number] ADM DATE: 01/20/19 AGE: 88 : 31 SEX: F ROOM/BED: D.2238 AUTHOR: SANCHO VELASCO PHYSICIAN: REFERRING PHYSICIAN: CHANELL LI MD DATE OF SERVICE: 01/26/19 Discharge Plan Patient Name: YESENIA REYES Facility: [facility]:[place] : 1930 Planned Disposition: Long-Term Facility Anticipated Discharge Date: Discharge Date: Expected LOS: Initial Reviewer: [email or web address] Initial Review Date: 01/20/2019 Generated: 01/26/19 3:17 pm Comments DCP- Discharge Planning Updated by [email or web address]: Fallon Gibson on 01/26/19 1:[address] Spoke with Pepper at [facility], states they can accept the patient tomorrow before 2PM. I called Dr. Li and he said he will discharge her in the morning. CM will continue to follow and assist with discharge planning/needs. DCP- Discharge Planning Updated by [email or web address]: Fallon Gibson on 01/25/19 10:[address] Spoke with Pepper at [facility], additional clinical faxed including PT eval. CM will continue to follow and assist with discharge planning/needs. DCP- Discharge Planning Updated by [email or web address]: Gina Ramirez on 01/24/19 3:[address] Patient Name: YESENIA REYES Admission Status: ER Accout number: [id number] Admission Date: 01-20-2019 : 1930 Admission Diagnosis:HYPO-OSMOLALITY AND HYPONATREMIA Attending: CHANELL LI Current LOS: 4 Anticipated DC Date: Planned Disposition: Long-Term Facility Primary Insurance: MEDICARE A & B Discharge Planning Comments: CM met with patient to complete initial dc planning assessment. CM educated patient on the CM role and verbal consent given by patient to complete assessment. Patient lives at home where she stated that she was independent with her care, but last week she started having friends come to stay with her because she was weak and dizzy. At discharge [facility] LUZ signed and feels this is a safe discharge. Patient has a walker & wheelchair & shower chair at home. CM will continue to follow and will assist as needed with dc plans/needs. Will send referral to [facility] and Rehab Instant Potato Processing Supervisor: Gina Ramirez DCPIA - Discharge Planning Initial Assessment Updated by [id number]: Gina Ramirez on 01/24/19 4:47 pm * Is the patient Alert and Oriented? Yes * How many steps to enter\exit or inside your home? 4 W/RAIL * PCP JEN * Pharmacy [facility] ([place]) * Preadmission Environment Home Alone * ADLs Independent * Equipment Rolling Walker Shower Chair Walker Wheelchair * List name and contact numbers for known caregivers / representatives who currently or will assist patient after discharge: SANDRINE REYES (SON) [phone] SNEHA (DAUGHTER) [phone] * Verbal permission to speak to the caregivers and representatives has been obtained from the patient. N/A * Community resources currently utilized None * Additional services required to return to the preadmission environment? Yes * Can the patient safely return to the preadmission environment? No * Has this patient been hospitalized within the prior 30 days at any hospital? No Last DP export: 01/25/19 10:36 a Patient Name: YESENIA REYES Page 73754 at 1417 All edits/amendments must be made on the electronic document DICTATION DATE: 01/26/191416 ASSISTED LIVING COORDINATOR: JOHN 01/26/191416 RPT#: [id number] DC DATE: STATUS: ADM IN [facility] [address] [place] [address] END OF REPORT
[2019-01-26 17:09] VITALS: BP 151/58
--- NOTE | 2019-01-26 18:42 | NUR ---
PT RESTING IN BED AROUSED BY VERBAL STIMULI. NO S/S OF ACUTE DISTRESS. CL IN PLACE.
--- NOTE | 2019-01-26 19:30 | NUR ---
PT RESTING IN BED. ALERT AND ORIENTED. NO SIGNS OF DISTRESS. BREATHING EVEN AND UNLABORED. PT STATES NO PROBLEMS AT THIS TIME. IV SITE LT HAND DRESSING CLEAN DRY AND INTACT. NO SIGNS OF INFECTION. BOWEL SOUNDS ACTIVE. NO LOWER LEG SWELLING PRESENT. WILL CONTINUE PLAN OF CARE. CALL LIGHT IN REACH. BED LOWERED AND LOCKED. BED RAILS UP X2. BED ALARM ON. YELLOW GOWN AND ARM BAND ON.
--- NOTE | 2019-01-26 21:00 | NUR ---
FSBS 179 NO COVERAGE. PT REFUSED.
--- NOTE | 2019-01-27 03:31 | NUR ---
RESTING IN BED RESP UNLABORED NO APPARENT DISTRESS CALL ERICA FERNANDO
[2019-01-27 04:00] VITALS: BP 114/62
--- NOTE | 2019-01-27 06:46 | NUR ---
FSBS 100 NO COVERAGE NEEDED AT THIS TIME PER SS.
--- NOTE | 2019-01-27 07:26 | NUR ---
LAYING IN BED, EVEN UNLABORED BREATHING, AAOx4, DENIES ANY PAIN. IV IN LEFT FOREARM, SALINE LOCKED, PATENT, ON ROOM AIR, DENIES ANY CURRENT NEEDS, BED LOWERED AND LOCKED, CALL LIGHT WITHIN REACH. CPOC
[2019-01-27 08:31] VITALS: BP 159/54
--- NOTE | 2019-01-27 09:53 | MORECARE ---
CASE MANAGEMENT DISCHARGE SUMMARY PATIENT: YESENIA REYES UNIT: [id number] ADM DATE: 01/20/19 AGE: 88 : 31 SEX: F ROOM/BED: D.2238 AUTHOR: SANCHO VELASCO PHYSICIAN: REFERRING PHYSICIAN: CHANELL LI MD DATE OF SERVICE: 01/27/19 Discharge Plan Patient Name: YESENIA REYES [facility] [facility] 1930 Planned Disposition: Nursing Home Facility Anticipated Discharge Date: Discharge Date: Expected LOS: Initial Reviewer: [email or web address] Initial Review Date: 01/20/2019 Generated: 01/27/19 10:53 am Comments DCP- Discharge Planning Updated by [email or web address]: Fallon Gibson on 01/27/19 8:[address] Met with patient and her son is in the room. They both are still in agreement to [facility] for skilled therapy. She states she does not think she can tolerate 3 hours of therapy a day required for inpatient rehab. CM will continue to follow and assist with discharge planning/needs. DCP- Discharge Planning Updated by [email or web address]: Fallon Gibson on 01/26/19 1:[address] Spoke with Pepper at [facility], states they can accept the patient tomorrow before 2PM. I called Dr. Li and he said he will discharge her in the morning. CM will continue to follow and assist with discharge planning/needs. DCP- Discharge Planning Updated by [email or web address]: Fallon Gibson on 01/25/19 10:[address] Spoke with Ppeper at [facility], additional clinical faxed including PT eval. CM will continue to follow and assist with discharge planning/needs. DCP- Discharge Planning Updated by [email or web address]: Gina Ramirez on 01/24/19 3:[address] Patient Name: YESENIA REYES Admission Status: ER Accout number: [id number] Admission Date: 01-20-2019 : 1930 Admission Diagnosis:HYPO-OSMOLALITY AND HYPONATREMIA Attending: CHANELL LI Current LOS: 4 Anticipated DC Date: Planned Disposition: Nursing Home Facility Primary Insurance: MEDICARE A & B Discharge Planning Comments: CM met with patient to complete initial dc planning assessment. CM educated patient on the CM role and verbal consent given by patient to complete assessment. Patient lives at home where she stated that she was independent with her care, but last week she started having friends come to stay with her because she was weak and dizzy. At discharge patient would like to go to [facility] and rehab. LUZ signed and feels this is a safe discharge. Patient has a walker & wheelchair & shower chair at home. CM will continue to follow and will assist as needed with dc plans/needs. [facility] Stave Block Roller: Gina Ramirez DCPIA - Discharge Planning Initial Assessment Updated by [email or web address]: Gina Ramirez on 01/24/19 4:47 pm * Is the patient Alert and Oriented? Yes * How many steps to enter\exit or inside your home? 4 W/RAIL * PCP JEN * Pharmacy [facility] ([place]) * Preadmission Environment Home Alone * ADLs Independent * Equipment Rolling Walker Shower Chair Walker Wheelchair * List name and contact numbers for known caregivers / representatives who currently or will assist patient after discharge: SANDRINE REYES (SON) [phone] SNEHA (DAUGHTER) [phone] * Verbal permission to speak to the caregivers and representatives has been obtained from the patient. N/A * Community resources currently utilized None * Additional services required to return to the preadmission environment? Yes * Can the patient safely return to the preadmission environment? No * Has this patient been hospitalized within the prior 30 days at any hospital? No Last DP export: 01/26/19 1:17 p Patient Name: YESENIA REYES Page 06207 at 0953 All edits/amendments must be made on the electronic document DICTATION DATE: 01/27/19952 PSYCHOLOGY INSTRUCTOR: JOHN 01/27/19952 RPT#: [id number] DC DATE: STATUS: ADM IN [facility] [address] [place] [address] END OF REPORT
--- NOTE | 2019-01-27 11:44 | NUR ---
SPOKE WITH DR. FERNANDEZ, PT C/O OF DIARRHEA, MILD AMOUNT OF LOOSER STOOLS IN [facility], WE WILL CONTINUE TO MONITOR AND MAKE [facility] CURRENT C/O WHEN GIVING REPORT FOR TRANSFER.
[2019-01-27 12:09] VITALS: BP 187/78
[2019-01-27] MEDS ORDERED: Nystatin Oral Susp [ PO (12:53)
[2019-01-27] MEDS ORDERED: MEDROL DOSE PACK4 MG PO (12:55)
--- NOTE | 2019-01-27 13:34 | NUR ---
LAYING IN BED, EYES CLOSED, EVEN UNLABORED BREATHING, DENIES ANY CURRENT NEEDS OR DISCOMFORTS, SPOKE WITH DIANA IN CASE MANAGEMENT, PENDING ACCEPTANCE TO REHAB D/T SLIGHT ELEVATION OF WBC, PT BED LOWERED AND LOCKED, CALL LIGHT WITHIN REACH. CPOC
--- NOTE | 2019-01-27 13:56 | NUR ---
I have reviewed this patient and I concur with the Shift Assessment completed by the Licensed Practical Nurse today this shift.
--- NOTE | 2019-01-27 14:22 | MORECARE ---
CASE MANAGEMENT DISCHARGE SUMMARY PATIENT: YESENIA REYES UNIT: [id number] ADM DATE: 01/20/19 AGE: 88 : 31 SEX: F ROOM/BED: D.2238 AUTHOR: ROD,DOC PHYSICIAN: REFERRING PHYSICIAN: CHANELL LI MD DATE OF SERVICE: 01/27/19 Discharge Plan Patient Name: YESENIA REYES Facility: [facility]:[place] : 1930 Planned Disposition: Long Term Facility Anticipated Discharge Date: Discharge Date: Expected LOS: Initial Reviewer: [id number] Initial Review Date: 01/20/2019 Generated: 01/27/19 3:22 pm Comments DCP- Discharge Planning Updated by [email or web address]: Fallon Gibson on 01/27/19 1:[address] [facility] Pepper called back and states they cannot take her today because of elevated WBC even though she is on prednisone. States they will f/u on Wednesday. I called Dr. Li and he has cancelled discharge today. CM will continue to follow and assist with discharge planning/needs. DCP- Discharge Planning Updated by [id number]: Fallon Gibson on 01/27/19 8:[address] Met with patient and her son is in the room. They both are still in agreement to [facility] for skilled therapy. She states she does not think she can tolerate 3 hours of therapy a day required for inpatient rehab. CM will continue to follow and assist with discharge planning/needs. DCP- Discharge Planning Updated by [email or web address]: Fallon Gibson on 01/26/19 1:[address] Spoke with Pepper at [facility], states they can accept the patient tomorrow before 2PM. I called Dr. Li and he said he will discharge her in the morning. CM will continue to follow and assist with discharge planning/needs. DCP- Discharge Planning Updated by [id number]: Fallon Gibson on 01/25/19 10:[address] Spoke with Pepper at [facility], additional clinical faxed including PT eval. CM will continue to follow and assist with discharge planning/needs. DCP- Discharge Planning Updated by [email or web address]: Gina Ramirez on 01/24/19 3:[address] Patient Name: YESENIA REYES Admission Status: ER Accout number: [id number] Admission Date: 01-20-2019 : 1930 Admission Diagnosis:HYPO-OSMOLALITY AND HYPONATREMIA Attending: CHANELL LI Current LOS: 4 Anticipated DC Date: Planned Disposition: Long Term Facility Primary Insurance: MEDICARE A & B Discharge Planning Comments: CM met with patient to complete initial dc planning assessment. CM educated patient on the CM role and verbal consent given by patient to complete assessment. Patient lives at home where she stated that she was independent with her care, but last week she started having friends come to stay with her because she was weak and dizzy. At discharge patient would like to go to [facility] and rehab. LUZ signed and feels this is a safe discharge. Patient has a walker & wheelchair & shower chair at home. CM will continue to follow and will assist as needed with dc plans/needs. [facility] Medical Services Manager: Gina Ramirez DCPIA - Discharge Planning Initial Assessment Updated by [email or web address]: Gina Ramirez on 01/24/19 4:47 pm * Is the patient Alert and Oriented? Yes * How many steps to enter\exit or inside your home? 4 W/RAIL * PCP JEN * Pharmacy [facility] ([place]) * Preadmission Environment Home Alone * ADLs Independent * Equipment Rolling Walker Shower Chair Walker Wheelchair * List name and contact numbers for known caregivers / representatives who currently or will assist patient after discharge: SANDRINE REYES (SON) [phone] SNEHA (DAUGHTER) [phone] * Verbal permission to speak to the caregivers and representatives has been obtained from the patient. N/A * Community resources currently utilized None * Additional services required to return to the preadmission environment? Yes * Can the patient safely return to the preadmission environment? No * Has this patient been hospitalized within the prior 30 days at any hospital? No Last DP export: 01/27/19 8:53 am Patient Name: YESENIA REYES Page [id number] at 1422 All edits/amendments must be made on the electronic document DICTATION DATE: 01/27/191420 HEAD TRACK COACH: JOHN 01/27/191420 RPT#: [id number] DC DATE: STATUS: ADM IN [facility] [address] [place] [address] END OF REPORT
[2019-01-27 15:35] VITALS: BP 114/60
--- NOTE | 2019-01-27 18:14 | NUR ---
SMALL BOWEL MOVEMENT, SOFT, SMALL INDIVIDUAL PIECES, BUT FORMED, STRONG ODOR, YELLOW/GREENISH IN COLOR. NO REASON FOR CONCERN, BUT PT IS CONCERNED WITH BM'S AND I TOLD HER I WOULD MONITOR IT TO SEE IF IT WORSENS, BED LOWERED AND LOCKED CALL LIGHT WITHIN REACH CPOC
--- NOTE | 2019-01-27 19:07 | NUR ---
LAYING IN BED, EYES CLOSED, EVEN UNLABORED BREATHING, ON ROOM AIR, IV IN LEFT FOREARM, SALINE LOCKED, DENIES ANY CURRENT NEEDS OR DISCOMFORTS, BED LOWERED AND LOCKED, CALL LIGHT WITHIN REACH. CPOC
--- NOTE | 2019-01-27 19:15 | NUR ---
RECEIVED CARE FROM DAY NURSE. SITTING UP IN BED WATCHING TV. CALL LIGHT AT SIDE. IV SL TO LEFT HAND. NO NEEDS VOICED AT THIS TIME.
[2019-01-27 20:08] VITALS: BP 165/75
[2019-01-28 00:46] VITALS: BP 150/80
--- NOTE | 2019-01-28 01:43 | NUR ---
I have reviewed this patient and I concur with the Shift Assessment completed by the Licensed Practical Nurse today this shift.
[2019-01-28 06:08] VITALS: BP 155/50
[2019-01-28 07:48] LABS: HEMATOCRIT 37.4 % (36.0-48.0); HEMOGLOBIN 12.5 g/dL (12-16); MCH 31.5 pg (26.0-34.0); MCHC 33.4 g/dL (31.0-37.0); MCV 94.2 fL (80.0-100.0); MEAN PLATELET VOLUME 8.8 fL (7.4-10.4); PLATELET COUNT 414 10x3/uL (130-400); RBC 3.97 10x6/uL (4.00-5.40); RDW 13.2 % (11.5-14.5)
[2019-01-28 07:56] LABS: ANION GAP 9.5 mmol/L (8-16); CALCIUM 8.7 mg/dL (8.5-10.1); CARBON DIOXIDE 30.1 mmol/L (21.0-32.0); CREATININE - SERUM 0.9 mg/dL (0.6-1.3); POTASSIUM - SERUM 3.6 mmol/L (3.5-5.1)
--- NOTE | 2019-01-28 08:04 | NUR ---
sitting up right in chair, awake and alert oriented x4, on room air, iv in left forearm, saline locked, denies any current needs or discomforts, chair wheels locked, call light within reach. non-slip socks on. cpoc
[2019-01-28 08:08] VITALS: BP 149/59
[2019-01-28 08:28] LABS: EOSINOPHILS 4 % (0-7); LYMPHOCYTES 25 % (15-50); MONOCYTES 3 % (2-11); NEUTROPHILS 68 % (40-80); PLATELET ESTIMATE NORMAL
--- NOTE | 2019-01-28 13:56 | NUR ---
PLACED HAT IN BATHROOM AND EXPLAINED TO PT THAT A SAMPLE OF URINE WILL BE NEEDED PER ORDER. SHE VERBALIZES UNDERSTANDING, DENIES ANY QUESTIONS OR CONCERNS. BED LOWERED AND LOCKED, FAMILY MEMBER PRESENT. CALL LIGHT WITHIN REACH. CPOC
[2019-01-28 16:31] VITALS: BP 136/67
[2019-01-28 16:54] LABS: APPEARANCE CLEAR (CLEAR); BACTERIA FEW /hpf (NONE SEEN); BILIRUBIN NEGATIVE (NEGATIVE); COLOR YELLOW (YELLOW); EPITHELIAL CELLS 0-5 /hpf (0-5); GLUCOSE NEGATIVE (NEGATIVE); KETONE SMALL mg/dL (NEGATIVE); NITRITE POSITIVE (NEGATIVE); PROTEIN NEGATIVE (NEGATIVE); RED CELLS - URINE NONE SEEN /hpf (0-5); SPECIFIC GRAVITY 1.015 (1.005-1.020); UROBILINOGEN NORMAL (NORMAL); WHITE CELLS - URINE OCC /hpf (0-5)
--- NOTE | 2019-01-28 19:15 | NUR ---
RECEIVED CARE FROM DAY NURSE. LYING IN BED WITH EYES CLOSED. RESP EVEN AND UNLABORED. CALL LIGHT AT SIDE.
[2019-01-28 20:01] VITALS: BP 120/46
[2019-01-29 02:28] VITALS: BP 120/50
--- NOTE | 2019-01-29 02:57 | NUR ---
I have reviewed this patient and I concur with the Shift Assessment completed by the Licensed Practical Nurse today this shift.
[2019-01-29 04:09] VITALS: BP 142/49
[2019-01-29 08:32] VITALS: BP 141/60
--- NOTE | 2019-01-29 10:38 | NUR ---
SITTING UP RIGHT IN BED, EVEN UNLABORED BREATHING, ON ROOM AIR, IV TO LEFT HAND, PATENT, SALINE LOCKED, ONE EPISODE OF LOOSE STOOLS, USES WALKER WITH ASSIST, BED LOWERED AND LOCKED, CALL LIGHT WITHIN REACH. CPOC
[2019-01-29 12:48] VITALS: BP 151/68
[2019-01-29 17:16] VITALS: BP 124/58
--- NOTE | 2019-01-29 19:15 | NUR ---
RECIEVED CARE FROM DAY NURSE. LYING IN BED. NO DISTRESS NOTED. CALL LIGHT AT SIDE. IV IN PLACE AND INTACT.
--- NOTE | 2019-01-29 19:43 | NUR ---
I have reviewed this patient and I concur with the Shift Assessment completed by the Licensed Practical Nurse today this shift.
[2019-01-29 20:23] VITALS: BP 120/35
[2019-01-30 00:18] VITALS: BP 118/55
--- NOTE | 2019-01-30 02:44 | NUR ---
I have reviewed this patient and I concur with the Shift Assessment completed by the Licensed Practical Nurse today this shift.
[2019-01-30 04:27] VITALS: BP 146/48
[2019-01-30 07:30] LABS: BASOPHILS 0.2 % (0-2); EOSINOPHILS 1.1 % (0-7); HEMATOCRIT 39.5 % (36.0-48.0); IMMATURE GRANULOCYTES 3.3 % (0-5); LYMPHOCYTES 20.5 % (15-50); MCH 31.3 pg (26.0-34.0); MCHC 32.9 g/dL (31.0-37.0); MEAN PLATELET VOLUME 9.1 fL (7.4-10.4); MONOCYTES 7.8 % (2-11); NEUTROPHILS 67.1 % (40-80); PLATELET COUNT 393 10x3/uL (130-400); RBC 4.16 10x6/uL (4.00-5.40); RDW 13.3 % (11.5-14.5); WBC 12.4 10x3/uL (4.8-10.8)
[2019-01-30 07:42] LABS: ANION GAP 10.4 mmol/L (8-16); CALCIUM 8.9 mg/dL (8.5-10.1); CARBON DIOXIDE 31.2 mmol/L (21.0-32.0); CREATININE - SERUM 0.9 mg/dL (0.6-1.3); POTASSIUM - SERUM 3.6 mmol/L (3.5-5.1)
--- NOTE | 2019-01-30 07:45 | NUR ---
PATIENT ADMITTED FOR HYPOTHERMIA, FALLS, AND WEAKNESS. PATIENT RESTING WITH NO NEEDS VOICED, SON AT SIDE, FALL PRECAUTIONS USED. CL IN REACH
[2019-01-30 08:22] VITALS: BP 146/50
[2019-01-30 12:28] VITALS: BP 145/73
--- NOTE | 2019-01-30 14:48 | NUR ---
NUTRITION F//U PT TOLERATING DIABETIC DIET WITH 50 TO 75% INTAKE RECENT MEALS. WILL CONTINUE TO PROVIDE DIET, MONITOR PO INTAKE. RD FOLLOWING
[2019-01-30 16:37] VITALS: BP 125/50
[2019-01-31] VITALS: BP 147/50
--- NOTE | 2019-01-31 02:50 | NUR ---
ASSISTED PT FROM BATHROOM TO BED. WEEKNESS IN BOTH EXTREMETIES NOTED, BUT PT IS ABLE TO AMULATE WITH WALKER, ON REQUIRING ASSISTANCE GETTING UP FROM SITTING POSITION. SUGGESTED PT LAY ON ANOTHER SIDE, PT AGREED. RIGHT SIDE LYING IN BED, SCDs IN USE, DENIES FURTHER NEEDS AT THIS TIME.
[2019-01-31 04:00] VITALS: BP 184/88
[2019-01-31 05:46] LABS: BASOPHILS 0.1 % (0-2); EOSINOPHILS 1.4 % (0-7); HEMATOCRIT 36.4 % (36.0-48.0); HEMOGLOBIN 11.9 g/dL (12-16); IMMATURE GRANULOCYTES 3.1 % (0-5); LYMPHOCYTES 16.8 % (15-50); MCH 31.1 pg (26.0-34.0); MCHC 32.7 g/dL (31.0-37.0); MEAN PLATELET VOLUME 9.3 fL (7.4-10.4); MONOCYTES 7.1 % (2-11); NEUTROPHILS 71.5 % (40-80); PLATELET COUNT 380 10x3/uL (130-400); RBC 3.83 10x6/uL (4.00-5.40); RDW 13.4 % (11.5-14.5); WBC 12.6 10x3/uL (4.8-10.8)
[2019-01-31 06:07] LABS: ANION GAP 13.1 mmol/L (8-16); CALCIUM 8.8 mg/dL (8.5-10.1); CARBON DIOXIDE 29.3 mmol/L (21.0-32.0); CREATININE - SERUM 0.8 mg/dL (0.6-1.3); POTASSIUM - SERUM 3.4 mmol/L (3.5-5.1)
--- NOTE | 2019-01-31 07:20 | NUR ---
PATIENT IN BED VERY ANXIOUS STATING HER HEAD FEELS FUNNY, AND LEGS FEEL NUMB. V/S Beau BATEMAN FSBS 91. NOTIFIED DR LI WITH WITH EXTRA XANAX ORDERED WHAT HE STATED IS A PANIC ATTACK THAT SHE HAS REGULAR. XANAX GIVEN WITH PATIENT CALMING AND SLEEPING
--- NOTE | 2019-01-31 08:03 | NUR ---
I have reviewed this patient and I concur with the Shift Assessment completed by the Licensed Practical Nurse today this shift.
[2019-01-31 09:24] VITALS: BP 135/63
--- NOTE | 2019-01-31 09:51 | MORECARE ---
CASE MANAGEMENT DISCHARGE SUMMARY PATIENT: YESENIA REYES UNIT: [id number] ADM DATE: 01/20/19 AGE: 88 : 31 SEX: F ROOM/BED: D.2238 AUTHOR: ROD,DOC PHYSICIAN: REFERRING PHYSICIAN: CHANELL LI MD DATE OF SERVICE: 01/31/19 Discharge Plan Patient Name: YESENIA REYES Facility: [facility]:[place] : 1930 Planned Disposition: Penitentiary Facility Anticipated Discharge Date: Discharge Date: Expected LOS: Initial Reviewer: [email or web address] Initial Review Date: 01/20/2019 Generated: 01/31/19 10:50 am Comments DCP- Discharge Planning Updated by [id number]: Fallon Gibson on 01/31/19 8:[address] [facility] CM will continue to follow and assist with discharge planning/needs. DCP- Discharge Planning Updated by [id number]: Fallon Gibson on 01/27/19 1:[address] Faxed clinical to [facility]. Pepper called back and states they cannot take her today because of elevated WBC even though she is on prednisone. States they will f/u on Wednesday. I called Dr. Li and he has cancelled discharge today. CM will continue to follow and assist with discharge planning/needs. DCP- Discharge Planning Updated by [email or web address]: Fallon Gibson on 01/27/19 8:[address] Met with patient and her son is in the room. They both are still in agreement to [facility] for skilled therapy. She states she does not think she can tolerate 3 hours of therapy a day required for inpatient rehab. CM will continue to follow and assist with discharge planning/needs. DCP- Discharge Planning Updated by [id number]: Fallon Gibson on 01/26/19 1:[address] Spoke with Pepper at [facility], states they can accept the patient tomorrow before 2PM. I called Dr. Li and he said he will discharge her in the morning. CM will continue to follow and assist with discharge planning/needs. DCP- Discharge Planning Updated by [id number]: Fallon Gibson on 01/25/19 10:[address] [facility], additional clinical faxed including PT [place]. CM will continue to follow and assist with discharge planning/needs. DCP- Discharge Planning Updated by [id number]: Gina Ramirez on 01/24/19 3:[address] Patient Name: YESENIA REYES Admission Status: ER Accout number: [id number] Admission Date: 01-20-2019 : 1930 Admission Diagnosis:HYPO-OSMOLALITY AND HYPONATREMIA Attending: CHANELL LI Current LOS: 4 Anticipated DC Date: Planned Disposition: Penitentiary Facility Primary Insurance: MEDICARE A & B Discharge Planning Comments: CM met with patient to complete initial dc planning assessment. CM educated patient on the CM role and verbal consent given by patient to complete assessment. Patient lives at home where she stated that she was independent with her care, but last week she started having friends come to stay with her because she was weak and dizzy. At discharge patient [facility] LUZ signed and feels this is a safe discharge. Patient has a walker & wheelchair & shower chair at home. CM will continue to follow and will assist as needed with dc plans/needs. Will send referral to [facility] Thermoforming Machine Operator: Gnia Ramirez DCPIA - Discharge Planning Initial Assessment Updated by [email or web address]: Gina Ramirez on 01/24/19 4:47 pm * Is the patient Alert and Oriented? Yes * How many steps to enter\exit or inside your home? 4 W/RAIL * PCP JEN * Pharmacy [facility] ([place]) * Preadmission Environment Home Alone * ADLs Independent * Equipment Rolling Walker Shower Chair Walker Wheelchair * List name and contact numbers for known caregivers / representatives who currently or will assist patient after discharge: SANDRINE REYES (SON) [phone] SNEHA (DAUGHTER) [phone] * Verbal permission to speak to the caregivers and representatives has been obtained from the patient. N/A * Community resources currently utilized None * Additional services required to return to the preadmission environment? Yes * Can the patient safely return to the preadmission environment? No * Has this patient been hospitalized within the prior 30 days at any hospital? No Last DP export: 01/27/19 1:22 pm Patient Name: YESENIA REYES Page [id number] at 0951 All edits/amendments must be made on the electronic document DICTATION DATE: 01/31/19949 TEAMCENTER CONSULTANT: JOHN 01/31/19949 RPT#: [id number] DC DATE: STATUS: ADM IN [facility] [address] [place] [address] END OF REPORT
[2019-01-31 12:00] VITALS: BP 151/67
--- NOTE | 2019-01-31 14:03 | MORECARE ---
CASE MANAGEMENT DISCHARGE SUMMARY PATIENT: YESENIA REYES [place] UNIT: [id number] ADM DATE: 01/20/19 AGE: 88 : 31 SEX: F ROOM/BED: D.2238 AUTHOR: ROD,DOC PHYSICIAN: REFERRING PHYSICIAN: CHANELL LI MD DATE OF SERVICE: 01/31/19 Discharge Plan Patient Name: YESENIA REYES Facility: [facility]:[place] : 1930 Planned Disposition: Long Term Facility Anticipated Discharge Date: Discharge Date: Expected LOS: Initial Reviewer: [email or web address] Initial Review Date: 01/20/2019 Generated: 01/31/19 3:03 pm Comments DCP- Discharge Planning Updated by [id number]: Fallon Gibson on 01/31/19 1:[address] Pepper with [facility] is ready to accept patient. Dr. Li has rounded and states that she may be stable to discharge tomorrow, Pepper informed. CM will continue to follow and assist with discharge planning/needs. DCP- Discharge Planning Updated by [id number]: Fallon Gibson on 01/31/19 8:[address] Updated clinical [facility] CM will continue to follow and assist with discharge planning/needs. DCP- Discharge Planning Updated by [id number]: Fallon Gibson on 01/27/19 1:[address] [facility] clinical [facility] Pepper called back and states they cannot take her today because of elevated WBC even though she is on prednisone. States they will f/u on Wednesday. I called Dr. Li and he has cancelled discharge today. CM will continue to follow and assist with discharge planning/needs. DCP- Discharge Planning Updated by [id number]: Fallon Gibson on 01/27/19 8:[address] Met with patient and her son is in the room. They both are still in agreement [facility]. She states she does not think she can tolerate 3 hours of therapy a day required for inpatient rehab. CM will continue to follow and assist with discharge planning/needs. DCP- Discharge Planning Updated by [id number]: Fallon Gibson on 01/26/19 1:[address] Spoke with Pepper at [facility], states they can accept the patient tomorrow before 2PM. I called Dr. Li and he said he will discharge her in the morning. CM will continue to follow and assist with discharge planning/needs. DCP- Discharge Planning Updated by [id number]: Fallon Gibson on 01/25/19 10:[address] Spoke with Pepper at [facility], additional clinical faxed including PT eval. CM will continue to follow and assist with discharge planning/needs. DCP- Discharge Planning Updated by [id number]: Gina Ramirez on 01/24/19 3:[address] Patient Name: YESENIA REYES Admission Status: ER Accout number: [id number] Admission Date: 01-20-2019 : 1930 Admission Diagnosis:HYPO-OSMOLALITY AND HYPONATREMIA Attending: CHANELL LI Current LOS: 4 Anticipated DC Date: Planned Disposition: Long Term Facility Primary Insurance: MEDICARE A & B Discharge Planning Comments: CM met with patient to complete initial dc planning assessment. CM educated patient on the CM role and verbal consent given by patient to complete assessment. Patient lives at home where she stated that she was independent with her care, but last week she started having friends come to stay with her because she was weak and dizzy. At discharge patient would like to go to [facility]. LUZ signed and feels this is a safe discharge. Patient has a walker & wheelchair & shower chair at home. CM will continue to follow and will assist as needed with dc plans/needs. Will send referral to [facility] Clip On Sunglasses Assembler: Gina Ramirez DCPIA - Discharge Planning Initial Assessment Updated by [email or web address]: Gina Ramirez on 01/24/19 4:47 pm * Is the patient Alert and Oriented? Yes * How many steps to enter\exit or inside your home? 4 W/RAIL * PCP JEN * Pharmacy [facility] ([place]) * Preadmission Environment Home Alone * ADLs Independent * Equipment Rolling Walker Shower Chair Walker Wheelchair * List name and contact numbers for known caregivers / representatives who currently or will assist patient after discharge: SANDRINE REYES (SON) [phone] SNEHA (DAUGHTER) [phone] * Verbal permission to speak to the caregivers and representatives has been obtained from the patient. N/A * Community resources currently utilized None * Additional services required to return to the preadmission environment? Yes * Can the patient safely return to the preadmission environment? No * Has this patient been hospitalized within the prior 30 days at any hospital? No Last DP export: 01/31/19 8:51 am Patient Name: YESENIA REYES Page [id number] at 1403 All edits/amendments must be made on the electronic document DICTATION DATE: 01/31/191402 CLINICAL IMMUNOLOGIST: JOHN 01/31/191402 RPT#: [id number] DC DATE: STATUS: ADM IN [facility] [address] [place] [address] END OF REPORT
[2019-01-31 17:43] VITALS: BP 126/51
[2019-01-31 19:49] LABS: APPEARANCE CLEAR (CLEAR); BILIRUBIN NEGATIVE (NEGATIVE); COLOR YELLOW (YELLOW); GLUCOSE NEGATIVE (NEGATIVE); KETONE NEGATIVE (NEGATIVE); NITRITE NEGATIVE (NEGATIVE); PROTEIN NEGATIVE (NEGATIVE); UROBILINOGEN NORMAL (NORMAL)
[2019-01-31 19:50] LABS: BACTERIA MANY /hpf (NONE SEEN); RED CELLS - URINE OCC /hpf (0-5); WHITE CELLS - URINE OCC /hpf (0-5)
[2019-01-31 20:00] VITALS: BP 150/69
--- NOTE | 2019-01-31 21:30 | NUR ---
A&O X 4, ASSISTED PT AMBULATING FROM BATHROOM TO BED WITH WALKER. DENIES PAIN. PT VOIDED CLEAR YELLOW URINE. SON AT BEDSIDE. PT REPORTS SHE WILL TAKE HER ANXIETY MEDICATION LATER TO HELP HER SLEEP. DENIES NEEDS AT THIS TIME.
[2019-02-01 04:00] VITALS: BP 147/63
[2019-02-01 04:59] LABS: BASOPHILS 0.1 % (0-2); EOSINOPHILS 1.5 % (0-7); HEMATOCRIT 33.6 % (36.0-48.0); IMMATURE GRANULOCYTES 2.1 % (0-5); LYMPHOCYTES 12.4 % (15-50); MCH 31.3 pg (26.0-34.0); MCHC 32.7 g/dL (31.0-37.0); MCV 95.5 fL (80.0-100.0); MEAN PLATELET VOLUME 9.3 fL (7.4-10.4); MONOCYTES 7.5 % (2-11); NEUTROPHILS 76.4 % (40-80); PLATELET COUNT 337 10x3/uL (130-400); RBC 3.52 10x6/uL (4.00-5.40); RDW 13.4 % (11.5-14.5); WBC 14.1 10x3/uL (4.8-10.8)
[2019-02-01 05:26] LABS: ANION GAP 9.7 mmol/L (8-16); CALCIUM 7.9 mg/dL (8.5-10.1); CARBON DIOXIDE 30.6 mmol/L (21.0-32.0); CREATININE - SERUM 0.9 mg/dL (0.6-1.3); POTASSIUM - SERUM 3.3 mmol/L (3.5-5.1)
--- NOTE | 2019-02-01 07:56 | NUR ---
I have reviewed this patient and I concur with the Shift Assessment completed by the Licensed Practical Nurse today this shift.
[2019-02-01 08:39] VITALS: BP 157/52
[2019-02-01 13:48] VITALS: BP 141/61
[2019-02-01 16:58] VITALS: BP 141/68
[2019-02-01 20:00] VITALS: BP 155/65
[2019-02-02 04:00] VITALS: BP 132/86
--- NOTE | 2019-02-02 04:30 | NUR ---
I have reviewed this patient and I concur with the Shift Assessment completed by the Licensed Practical Nurse today this shift.
--- NOTE | 2019-02-02 04:53 | NUR ---
2015) ASSITED TO BATHROOM.SHAHEEN. WELL. ENTERIC ISOLATION CONTINUES ORDERED.WILL CONTINUE TO MONITOR FOR ANY CHGES. AND FOLLOW CURRENT PLAN OF CARE
[2019-02-02 05:47] LABS: BASOPHILS 0.1 % (0-2); EOSINOPHILS 2.5 % (0-7); HEMATOCRIT 32.3 % (36.0-48.0); HEMOGLOBIN 10.4 g/dL (12-16); IMMATURE GRANULOCYTES 3.3 % (0-5); LYMPHOCYTES 21.5 % (15-50); MCH 30.7 pg (26.0-34.0); MCHC 32.2 g/dL (31.0-37.0); MCV 95.3 fL (80.0-100.0); MEAN PLATELET VOLUME 9.1 fL (7.4-10.4); MONOCYTES 10.4 % (2-11); NEUTROPHILS 62.2 % (40-80); PLATELET COUNT 314 10x3/uL (130-400); RBC 3.39 10x6/uL (4.00-5.40); RDW 13.5 % (11.5-14.5)
[2019-02-02 06:04] LABS: ANION GAP 11.3 mmol/L (8-16); CALCIUM 7.9 mg/dL (8.5-10.1); CARBON DIOXIDE 27.8 mmol/L (21.0-32.0); CREATININE - SERUM 0.8 mg/dL (0.6-1.3); POTASSIUM - SERUM 3.1 mmol/L (3.5-5.1)
[2019-02-02 06:06] LABS: WBC 9.5 10x3/uL (4.8-10.8)
--- NOTE | 2019-02-02 07:40 | NUR ---
PT SITTING UP IN BED. NO ACUTE DISTRESS NOTED. DENIES PAIN AT THIS TIME. PT REPORTS CONTINUED DECREASED DIARRHEA, DESCRIBING MORE OF A LOOSE STOOL AT THIS TIME. SALINE LOC TO LEFT FOREARM SITE WITHOUT REDNESS OR EDEMA. EASILY FLUSHES. PT CONTINUES TO BE ON ENTERIC ISOLATION. PT DENIES FURTHER NEEDS AT THIS TIME. CL WITHIN REACH. ENCOURAGED TO CALL WITH NEEDS. CONTINUE POC
[2019-02-02 08:48] VITALS: BP 140/60
[2019-02-02 13:01] VITALS: BP 141/59
[2019-02-02 16:47] VITALS: BP 137/56
[2019-02-03 00:33] VITALS: BP 118/81
--- NOTE | 2019-02-03 02:16 | NUR ---
ASSESSED, PT IS AWAKE AND REMAINS IN ENTERIC ISOLATION. SHE HAS BEEN CALLING FOR ASSIST TO VOID FREQUENTLY. EASY RESPIRATIONS AND NO DISTRESS NOTED.
[2019-02-03 05:22] VITALS: BP 141/45
[2019-02-03 05:34] LABS: BASOPHILS 0.1 % (0-2); EOSINOPHILS 2.1 % (0-7); HEMATOCRIT 32.6 % (36.0-48.0); HEMOGLOBIN 10.6 g/dL (12-16); IMMATURE GRANULOCYTES 2.6 % (0-5); LYMPHOCYTES 21.5 % (15-50); MCH 30.6 pg (26.0-34.0); MCHC 32.5 g/dL (31.0-37.0); MCV 94.2 fL (80.0-100.0); MEAN PLATELET VOLUME 9.1 fL (7.4-10.4); MONOCYTES 8.1 % (2-11); NEUTROPHILS 65.6 % (40-80); PLATELET COUNT 281 10x3/uL (130-400); RBC 3.46 10x6/uL (4.00-5.40); RDW 13.6 % (11.5-14.5); WBC 9.4 10x3/uL (4.8-10.8)
[2019-02-03 05:56] LABS: ANION GAP 11.4 mmol/L (8-16); CALCIUM 8.2 mg/dL (8.5-10.1); CARBON DIOXIDE 26.4 mmol/L (21.0-32.0); CREATININE - SERUM 0.8 mg/dL (0.6-1.3)
[2019-02-03 06:00] LABS: POTASSIUM - SERUM 3.8 mmol/L (3.5-5.1)
--- NOTE | 2019-02-03 07:30 | NUR ---
PATIENT ADMITTED FOR LOW SODIUM, FALL AND WEAKNESS. PATIENT IS NOW BEING TREATED FOR C-DIFF AND IS IN INTERIC ISOLATION. PATIENT IS ALERT AND ORINENTED. FALL PRECAUTIONS USED
[2019-02-03 08:54] VITALS: BP 177/64
[2019-02-03 12:53] VITALS: BP 146/63
--- NOTE | 2019-02-03 15:27 | NUR ---
NUTRITION F/U PT REMAINS IN ISOLATION. BOTTLE HOUSE QUALITY CONTROL TECHNICIAN REPORTS PT WITH GOOD INTAKE MOST MEALS ON DIABETIC DIET. ALSO REPORTS PT FAMILY PROVIDING SOME FOOD FROM OUTSIDE FACILITY. RD FOLLOWING
[2019-02-03 17:19] VITALS: BP 134/65
[2019-02-03 19:00] VITALS: BP 136/78
--- NOTE | 2019-02-03 20:12 | NUR ---
PT ALERT AND ORIENTED. HOB RAISED WITH SON IN ROOM. PT IN GOOD SPIRITS. REQUESTS "ANXIETY MEDICATION" WITH HS MED[facility]. REPORTS NO OTHER STRESS AT THIS TIME. CALL LIGHT IN REACH. PT VERBALIZES TO USE CALL LIGHT WHEN IN NEED OF BATHROOM ASSISTANCE.
--- NOTE | 2019-02-04 00:06 | NUR ---
ASSESSED, PT IS ASLEEP WITH EASY UNLABORED RESPIRATIONS AND NO DISTRESS NOTED. SHE REMAINS IN ENTERIC ISOLATION.
--- NOTE | 2019-02-04 02:36 | NUR ---
RESITED PT IV TO THE RIGHT WRIST 22G
[2019-02-04 03:00] VITALS: BP 132/61
[2019-02-04 06:30] LABS: BASOPHILS 0.3 % (0-2); EOSINOPHILS 4.4 % (0-7); HEMATOCRIT 34.6 % (36.0-48.0); HEMOGLOBIN 11.3 g/dL (12-16); IMMATURE GRANULOCYTES 3.7 % (0-5); LYMPHOCYTES 28.4 % (15-50); MCHC 32.7 g/dL (31.0-37.0); MCV 94.8 fL (80.0-100.0); MEAN PLATELET VOLUME 9.1 fL (7.4-10.4); MONOCYTES 10.4 % (2-11); NEUTROPHILS 52.8 % (40-80); PLATELET COUNT 288 10x3/uL (130-400); RBC 3.65 10x6/uL (4.00-5.40); RDW 13.5 % (11.5-14.5); WBC 7.3 10x3/uL (4.8-10.8)
[2019-02-04 06:52] LABS: ANION GAP 13.5 mmol/L (8-16); CALCIUM 8.3 mg/dL (8.5-10.1); CARBON DIOXIDE 26.2 mmol/L (21.0-32.0); CREATININE - SERUM 0.8 mg/dL (0.6-1.3); POTASSIUM - SERUM 3.7 mmol/L (3.5-5.1)
--- NOTE | 2019-02-04 08:00 | NUR ---
PT AAOX4 RESP EVEN AND NONLABORED, NO SIGNS OF DISTRESS NOTED, FAMILY AT BEDSIDE, CL IN REACH FALL PRECAUTIONS IN PLACE WILL CONTINUE TO MONITOR
[2019-02-04 09:50] VITALS: BP 140/52
[2019-02-04 13:29] VITALS: BP 154/66
[2019-02-04 16:21] VITALS: BP 154/64
--- NOTE | 2019-02-04 16:50 | NUR ---
I have reviewed this patient and I concur with the Shift Assessment completed by the Licensed Practical Nurse today this shift.
[2019-02-04 20:00] VITALS: BP 126/71
[2019-02-05] VITALS: BP 117/77
[2019-02-05 04:00] VITALS: BP 149/80
[2019-02-05 07:27] LABS: BASOPHILS 0.2 % (0-2); EOSINOPHILS 4.9 % (0-7); HEMATOCRIT 35.2 % (36.0-48.0); HEMOGLOBIN 11.4 g/dL (12-16); IMMATURE GRANULOCYTES 4.5 % (0-5); LYMPHOCYTES 30.8 % (15-50); MCH 30.9 pg (26.0-34.0); MCHC 32.4 g/dL (31.0-37.0); MCV 95.4 fL (80.0-100.0); MEAN PLATELET VOLUME 9.2 fL (7.4-10.4); MONOCYTES 10.2 % (2-11); NEUTROPHILS 49.4 % (40-80); PLATELET COUNT 298 10x3/uL (130-400); RBC 3.69 10x6/uL (4.00-5.40); RDW 13.8 % (11.5-14.5); WBC 6.5 10x3/uL (4.8-10.8)
[2019-02-05 07:42] LABS: ALBUMIN 2.5 g/dL (3.4-5.0); ALKALINE PHOSPHATASE 81 U/L (46-116); ALT (SGPT) 22 U/L (10-68); BILIRUBIN - TOTAL 0.33 mg/dL (0.2-1.3); CALC OSMOLALITY 270 mosm/kg (275-300); CALCIUM 8.6 mg/dL (8.5-10.1); CARBON DIOXIDE 24.8 mmol/L (21.0-32.0); CHLORIDE - SERUM 102 mmol/L (98-107); CREATININE - SERUM 0.7 mg/dL (0.6-1.3); GLUCOSE 116 mg/dL (74-106); PROTEIN - SERUM 5.7 g/dL (6.4-8.2); SODIUM 136 mmol/L (136-145); UREA NITROGEN 6 mg/dL (7-18); eGFR NON AFRICAN AMERICAN 84 mL/min (90-120)
[2019-02-05 07:45] LABS: POTASSIUM - SERUM 4.3 mmol/L (3.5-5.1)
--- NOTE | 2019-02-05 08:00 | NUR ---
PT RESTING EYES CLOSED, EASY RISE AND FALL OF CHEST, NO SIGNS OF DISTRESS NOTED, FALL PRECAUTIONS IN PLACE WILL CONTINUE TO MONITOR CL IN REACH
[2019-02-05 08:30] VITALS: BP 167/63
[2019-02-05 12:43] VITALS: BP 147/87
[2019-02-05 16:36] VITALS: BP 140/67
--- NOTE | 2019-02-05 19:50 | NUR ---
ASSISTED UP TO BR TO VOID. AMB WITH WALKER. ENTERIC PRECAUTIONS IN USE FOR CDIFF. ALERT AND ORIENTED X4. TALKATIVE WITH STAFF. RESP EVEN AND NONLABORED. DENIES PAIN. RED EXCORIATED AREAS NOTED UNDER BREASTFOLDS AND BILAT GROIN. ORAL THRUSH NOTED. NS @ 10 ML/HR INFUSING IN LT FOREARM WITHOUT DIFF. RAE ALARM ON FOR PT SAFETY. BRUISES NOTED TO BUE. CL IN REACH.
[2019-02-05 20:38] VITALS: BP 124/61
--- NOTE | 2019-02-05 22:49 | NUR ---
REQUSTED XANAX FOR ANXIETY. MEDICATED WITH XANAX ORDERED. CL IN REACH.
[2019-02-06 00:42] VITALS: BP 125/62
[2019-02-06 05:07] VITALS: BP 120/60
[2019-02-06 05:46] LABS: BASOPHILS 0.4 % (0-2); EOSINOPHILS 6.1 % (0-7); HEMATOCRIT 29.9 % (36.0-48.0); IMMATURE GRANULOCYTES 4.3 % (0-5); LYMPHOCYTES 37.3 % (15-50); MCH 31.4 pg (26.0-34.0); MCHC 33.4 g/dL (31.0-37.0); MEAN PLATELET VOLUME 8.8 fL (7.4-10.4); MONOCYTES 9.6 % (2-11); NEUTROPHILS 42.3 % (40-80); PLATELET COUNT 248 10x3/uL (130-400); RBC 3.18 10x6/uL (4.00-5.40); RDW 13.8 % (11.5-14.5); WBC 5.1 10x3/uL (4.8-10.8)
[2019-02-06 06:14] LABS: ALBUMIN 2.1 g/dL (3.4-5.0); ALKALINE PHOSPHATASE 67 U/L (46-116); ALT (SGPT) 18 U/L (10-68); BILIRUBIN - TOTAL 0.29 mg/dL (0.2-1.3); CALC OSMOLALITY 266 mosm/kg (275-300); CALCIUM 8.1 mg/dL (8.5-10.1); CARBON DIOXIDE 25.1 mmol/L (21.0-32.0); CHLORIDE - SERUM 101 mmol/L (98-107); CREATININE - SERUM 0.7 mg/dL (0.6-1.3); GLUCOSE 100 mg/dL (74-106); POTASSIUM - SERUM 4.2 mmol/L (3.5-5.1); PROTEIN - SERUM 4.8 g/dL (6.4-8.2); SODIUM 135 mmol/L (136-145); UREA NITROGEN 5 mg/dL (7-18); eGFR NON AFRICAN AMERICAN 84 mL/min (90-120)
--- NOTE | 2019-02-06 08:15 | NUR ---
PT SITTING UP IN BED ALERT AND ORIENTED. NO ACUTE DISTRESS NOTED. FAMILY AT BEDSIDE. ASSISTED PT TO BR AND BACK TO BED WITH WALKER, REQUIRES ASSISTANCE IN STANDING FROM TOILET . SALINE LOC TO LEFT FOREARM INTACT AND PATENT. SITE WITHOUT REDNESS OR EDEMA, EASILY FLUSHED. DENIES PAIN AT THIS TIME. DENIES FURTHER NEEDS AT THIS TIME. CL WITHIN REACH. ENCOURAGED TO CALL WITH NEEDS. CONTINUE POC
[2019-02-06 08:20] VITALS: BP 145/57
[2019-02-06 12:30] VITALS: BP 174/80
[2019-02-06 17:53] VITALS: BP 131/68
[2019-02-06 20:00] VITALS: BP 167/66
--- NOTE | 2019-02-06 20:00 | NUR ---
PT SITTING UP IN BED, NO SIGNS OF DISTRESS. ALERT AND ORIENTED. IV RESITED TO LEFT HAND X3 ATTEMPTS. UP W/ ASSIST TO BATHROOM WITH WALKER. RAE ON. DENIES NEEDS AT THIS TIME. CL IN REACH, WILL CONTINUE TO MONITOR
[2019-02-07 04:00] VITALS: BP 149/74
[2019-02-07 06:55] LABS: BASOPHILS 0.7 % (0-2); EOSINOPHILS 3.8 % (0-7); HEMATOCRIT 33.3 % (36.0-48.0); HEMOGLOBIN 10.7 g/dL (12-16); IMMATURE GRANULOCYTES 3.3 % (0-5); LYMPHOCYTES 26.7 % (15-50); MCH 30.5 pg (26.0-34.0); MCHC 32.1 g/dL (31.0-37.0); MCV 94.9 fL (80.0-100.0); NEUTROPHILS 57.5 % (40-80); PLATELET COUNT 274 10x3/uL (130-400); RBC 3.51 10x6/uL (4.00-5.40); RDW 13.9 % (11.5-14.5); WBC 6.1 10x3/uL (4.8-10.8)
[2019-02-07 07:21] LABS: ALBUMIN 2.5 g/dL (3.4-5.0); BILIRUBIN - TOTAL 0.35 mg/dL (0.2-1.3); CALCIUM 8.6 mg/dL (8.5-10.1); CARBON DIOXIDE 27.9 mmol/L (21.0-32.0); CREATININE - SERUM 0.8 mg/dL (0.6-1.3); POTASSIUM - SERUM 3.9 mmol/L (3.5-5.1); PROTEIN - SERUM 5.3 g/dL (6.4-8.2)
--- NOTE | 2019-02-07 08:30 | NUR ---
PT AAOX4 RESP EVEN AND NONLABORED, NO SIGNS OF DISTRESS NOTED, FAMILY AT BEDSIDE, CL IN REACH
[2019-02-07 09:06] VITALS: BP 167/53
--- NOTE | 2019-02-07 09:54 | MORECARE ---
CASE MANAGEMENT DISCHARGE SUMMARY PATIENT: YESENIA REYES UNIT: [id number] ADM DATE: 01/20/19 AGE: 88 : 31 SEX: F ROOM/BED: D.2238 AUTHOR: ROD,DOC PHYSICIAN: REFERRING PHYSICIAN: CHANELL LI MD DATE OF SERVICE: 02/07/19 Discharge Plan Patient Name: YESENIA REYES Facility: [facility]:[place] : 1930 Planned Disposition: Fci Facility Anticipated Discharge Date: Discharge Date: Expected LOS: Initial Reviewer: [email or web address] Initial Review Date: 01/20/2019 Generated: 02/07/19 10:54 am Comments DCP- Discharge Planning Updated by [id number]: Fallon Gibson on 02/07/19 8:[address] Met with patient, she is still wanting to discharge to [facility] for strengthening. I called and spoke to Steph there and she states she will call me back after their meeting. CM will continue to follow and assist with discharge planning/needs. DCP- Discharge Planning Updated by [id number]: Fallon Gibson on 01/31/19 12:[address] Pepper with [facility] is ready to accept patient. Dr. Li has rounded and states that she may be stable to discharge tomorrow, Pepper informed. CM will continue to follow and assist with discharge planning/needs. DCP- Discharge Planning Updated by [id number]: Fallon Gibson on 01/31/19 7:[address] Updated [facility] CM will continue to follow and assist with discharge planning/needs. DCP- Discharge Planning Updated by [id number]: Fallon Gibson on 01/27/19 12:[address] [facility] Pepper called back and states they cannot take her today because of elevated WBC even though she is on prednisone. States they will f/u on Wednesday. I called Dr. Li and he has cancelled discharge today. CM will continue to follow and assist with discharge planning/needs. DCP- Discharge Planning Updated by [id number]: Fallon Gibson on 01/27/19 7:[address] Met with patient and her son is in the room. They both are still in agreement to [facility] for skilled therapy. She states she does not think she can tolerate 3 hours of therapy a day required for inpatient rehab. CM will continue to follow and assist with discharge planning/needs. DCP- Discharge Planning Updated by [id number]: Fallon Paige on 01/26/19 12:[address] Spoke with Pepper at [facility], states they can accept the patient tomorrow before 2PM. I called Dr. Li and he said he will discharge her in the morning. CM will continue to follow and assist with discharge planning/needs. DCP- Discharge Planning Updated by [id number]: Fallon Gibson on 01/25/19 9:[address] Spoke with Pepper at [facility], additional clinical faxed including PT [place]. CM will continue to follow and assist with discharge planning/needs. DCP- Discharge Planning Updated by [email or web address]: Gina Ramirez on 01/24/19 2:[address] Patient Name: YESENIA REYES Admission Status: ER Accout number: [id number] Admission Date: 01-20-2019 : 1930 Admission Diagnosis:HYPO-OSMOLALITY AND HYPONATREMIA Attending: CHANELL LI Current LOS: 4 Anticipated DC Date: Planned Disposition: Fci Facility Primary Insurance: MEDICARE A & B Discharge Planning Comments: CM met with patient to complete initial dc planning assessment. CM educated patient on the CM role and verbal consent given by patient to complete assessment. Patient lives at home where she stated that she was independent with her care, but last week she started having friends come to stay with her because she was weak and dizzy. At discharge patient would like to go to [facility]. LUZ signed and feels this is a safe discharge. Patient has a walker & wheelchair & shower chair at home. CM will continue to follow and will assist as needed with dc plans/needs. Will send referral to [facility] Instructional Technology Coach: Gina Ramirez DCPIA - Discharge Planning Initial Assessment Updated by [email or web address]: Gina Ramirez on 01/24/19 4:47 pm * Is the patient Alert and Oriented? Yes * How many steps to enter\exit or inside your home? 4 W/RAIL * PCP JEN * Pharmacy [facility] ([place]) * Preadmission Environment Home Alone * ADLs Independent * Equipment Rolling Walker Shower Chair Walker Wheelchair * List name and contact numbers for known caregivers / representatives who currently or will assist patient after discharge: SANDRINE REYSE (SON) [phone] SNEHA (DAUGHTER) [phone] * Verbal permission to speak to the caregivers and representatives has been obtained from the patient. N/A * Community resources currently utilized None * Additional services required to return to the preadmission environment? Yes * Can the patient safely return to the preadmission environment? No * Has this patient been hospitalized within the prior 30 days at any hospital? No Last DP export: 01/31/19 12:03 pm Patient Name: YESENIA REYES Page [id number] at 0954 All edits/amendments must be made on the electronic document DICTATION DATE: 02/07/19953 ELEMENTARY EDUCATION TUTOR: JOHN 02/07/19953 RPT#: [id number] DC DATE: STATUS: ADM IN [facility] [address] [place] [address] END OF REPORT
[2019-02-07] MEDS ORDERED: Vancomycin HCl PO (12:41)
--- NOTE | 2019-02-07 13:53 | MORECARE ---
CASE MANAGEMENT DISCHARGE SUMMARY PATIENT: YESENIA REYES [place] UNIT: [id number] ADM DATE: 01/20/19 AGE: 88 : 31 SEX: F ROOM/BED: D.2238 AUTHOR: ROD,DOC PHYSICIAN: REFERRING PHYSICIAN: CHANELL LI MD DATE OF SERVICE: 02/07/19 Discharge Plan Patient Name: YESENIA REYES Facility: [facility]:[place] : 1930 Planned Disposition: Chcf Facility Anticipated Discharge Date: Discharge Date: Expected LOS: Initial Reviewer: [id number] Initial Review Date: 01/20/2019 Generated: 02/07/19 2:53 pm Comments DCP- Discharge Planning Updated by [id number]: Fallon Gibson on 02/07/19 12:[address] [facility] Patient and family in agreement to discharge. They are picking her up at 1400. tool procurement coordinator and nurse aware. I have informed Angeles that she is in enteric isolation for positive CDT. DC orders/summary faxed. CM will continue to follow and assist with discharge planning/needs. DCP- Discharge Planning Updated by [id number]: Fallon Gibson on 02/07/19 8:[address] Met with patient, she is still wanting to [facility]. I called and spoke to Steph there and she states she will call me back after their meeting. CM will continue to follow and assist with discharge planning/needs. DCP- Discharge Planning Updated by [id number]: Fallon Gibson on 01/31/19 12:[address] Pepper with [facility] is ready to accept patient. Dr. Li has rounded and states that she may be stable to discharge tomorrow, Pepper informed. CM will continue to follow and assist with discharge planning/needs. DCP- Discharge Planning Updated by [id number]: Fallon Gibson on 01/31/19 7:[address] Updated clinical [facility]. CM will continue to follow and assist with discharge planning/needs. DCP- Discharge Planning Updated by [id number]: Fallon Gibson on 01/27/19 12:[address] Faxed clinical to [facility]. Pepper called back and states they cannot take her today because of elevated WBC even though she is on prednisone. States they will f/u on Wednesday. I called Dr. Li and he has cancelled discharge today. CM will continue to follow and assist with discharge planning/needs. DCP- Discharge Planning Updated by [id number]: Fallon Paige on 01/27/19 7:[address] Met with patient and her son is in the room. They both are still in agreement to [facility] for skilled therapy. She states she does not think she can tolerate 3 hours of therapy a day required for inpatient rehab. CM will continue to follow and assist with discharge planning/needs. DCP- Discharge Planning Updated by [id number]: Fallon Paige on 01/26/19 12:[address] Spoke with Pepper at [facility], states they can accept the patient tomorrow before 2PM. I called Dr. Li and he said he will discharge her in the morning. CM will continue to follow and assist with discharge planning/needs. DCP- Discharge Planning Updated by [email or web address]: Fallon Paige on 01/25/19 9:[address] Spoke with Pepper at [facility], additional clinical faxed including PT eval. CM will continue to follow and assist with discharge planning/needs. DCP- Discharge Planning Updated by [id number]: Gina Ramirez on 01/24/19 2:[address] Patient Name: YESENIA REEYS Admission Status: ER Accout number: [id number] Admission Date: 01-20-2019 : 1930 Admission Diagnosis:HYPO-OSMOLALITY AND HYPONATREMIA Attending: CHANELL LI Current LOS: 4 Anticipated DC Date: Planned Disposition: Chcf Facility Primary Insurance: MEDICARE A & B Discharge Planning Comments: CM met with patient to complete initial dc planning assessment. CM educated patient on the CM role and verbal consent given by patient to complete assessment. Patient lives at home where she stated that she was independent with her care, but last week she started having friends come to stay with her because she was weak and dizzy. At discharge [facility] LUZ signed and feels this is a safe discharge. Patient has a walker & wheelchair & shower chair at home. CM will continue to follow and will assist as needed with dc plans/needs. Will send referral to [facility] Biochemistry Professor: Gina Ramirez DCPIA - Discharge Planning Initial Assessment Updated by [id number]: Gina Ramirez on 01/24/19 4:47 pm * Is the patient Alert and Oriented? Yes * How many steps to enter\exit or inside your home? 4 W/RAIL * PCP JEN * Pharmacy [facility] ([place]) * Preadmission Environment Home Alone * ADLs Independent * Equipment Rolling Walker Shower Chair Walker Wheelchair * List name and contact numbers for known caregivers / representatives who currently or will assist patient after discharge: SANDRINE REYES (SON) [phone] SNEHA (DAUGHTER) [phone] * Verbal permission to speak to the caregivers and representatives has been obtained from the patient. N/A * Community resources currently utilized None * Additional services required to return to the preadmission environment? Yes * Can the patient safely return to the preadmission environment? No * Has this patient been hospitalized within the prior 30 days at any hospital? No Coverage Notice Reviewer: [id number] Mario Gibson Notice Issued Date-Time: 02/07/2019 10:38 Notice Type: IM Discharge Notice Notice Delivered To: Patient Relationship to Patient: Self Skid Road Worker Name: Delivery Method: HAND - Hand Delivered Angelia Days: Prior Verbal Notification: Recipient Understood Notice: Yes Recipient Signature: Yes Med Rec Note Co-signed by Attending: Coverage Notice Comment: IMM explained, signed, given, copy placed in MR Last DP export: 02/07/19 8:54 a Patient Name: YESENIA REYES Page [id number] at 1353 All edits/amendments must be made on the electronic document DICTATION DATE: 02/07/19 1352 MANAGER PERFORMANCE: JOHN 02/07/19 1352 RPT#: [id number] DC DATE: STATUS: ADM IN [facility] [address] [place] [address] END OF REPORT
--- NOTE | 2019-02-07 14:40 | NUR ---
IV DC WITH CATH INTACT, WENT OVER DC INSTRUCTIONS WITH PT FAMILY AT BEDSIDE, PT LEAVING VIA WHEELCHAIR VIA [facility] STAFF IN STABLE CONDITION
--- NOTE | 2019-02-08 15:06 | MORECARE ---
CASE MANAGEMENT DISCHARGE SUMMARY PATIENT: YESENIA REYES [place] UNIT: [id number] ADM DATE: 01/20/19 AGE: 88 : 31 SEX: F ROOM/BED: D.2238 AUTHOR: ROD,DOC PHYSICIAN: REFERRING PHYSICIAN: CHANELL LI MD DATE OF SERVICE: 02/08/19 Discharge Plan Patient Name: YESENIA REYES [facility] [facility] 1930 Planned Disposition: Retirement Facility Anticipated Discharge Date: Discharge Date: 02/07/2019 Expected LOS: Initial Reviewer: [email or web address] Initial Review Date: 01/20/2019 Generated: 02/08/19 4:06 pm Comments DCP- Discharge Planning Updated by [id number]: Fallon Gibson on 02/07/19 12:[address] Discharging to a skilled bed at [facility]. Patient and family in agreement to discharge. They are picking her up at 1400. program and research coordinator and nurse aware. I have informed Angeles that she is in enteric isolation for positive CDT. DC orders/summary faxed. CM will continue to follow and assist with discharge planning/needs. DCP- Discharge Planning Updated by [id number]: Fallon Gibson on 02/07/19 8:[address] Met with patient, she is still wanting to discharge to [facility] for strengthening. I called and spoke to Steph there and she states she will call me back after their meeting. CM will continue to follow and assist with discharge planning/needs. DCP- Discharge Planning Updated by [id number]: Fallon Gibson on 01/31/19 12:[address] Pepper with [facility] is ready to accept patient. Dr. Li has rounded and states that she may be stable to discharge tomorrow, Pepper informed. CM will continue to follow and assist with discharge planning/needs. DCP- Discharge Planning Updated by [email or web address]: Fallon Gibson on 01/31/19 7:[address] Updated clinical [facility]. CM will continue to follow and assist with discharge planning/needs. DCP- Discharge Planning Updated by [email or web address]: Fallon Gibson on 01/27/19 12:[address] Faxed clinical to [facility]. Pepper called back and states they cannot take her today because of elevated WBC even though she is on prednisone. States they will f/u on Wednesday. I called Dr. Li and he has cancelled discharge today. CM will continue to follow and assist with discharge planning/needs. DCP- Discharge Planning Updated by [id number]: Fallon Aparicioines on 01/27/19 7:[address] Met with patient and her son is in the room. They both are still in agreement to [facility] for skilled therapy. She states she does not think she can tolerate 3 hours of therapy a day required for inpatient rehab. CM will continue to follow and assist with discharge planning/needs. DCP- Discharge Planning Updated by [id number]: Fallon Paige on 01/26/19 12:[address] Spoke with Pepper at [facility], states they can accept the patient tomorrow before 2PM. I called Dr. Li and he said he will discharge her in the morning. CM will continue to follow and assist with discharge planning/needs. DCP- Discharge Planning Updated by [id number]: Fallon Paige on 01/25/19 9:[address] Spoke with Pepper at [facility], additional clinical faxed including PT eval. CM will continue to follow and assist with discharge planning/needs. DCP- Discharge Planning Updated by [id number]: Gina Ruizken on 01/24/19 2:[address] Patient Name: YESENIA REYES Admission Status: ER Accout number: [id number] Admission Date: 01-20-2019 : 1930 Admission Diagnosis:HYPO-OSMOLALITY AND HYPONATREMIA Attending: CHANELL LI Current LOS: 4 Anticipated DC Date: Planned Disposition: Retirement Facility Primary Insurance: MEDICARE A & B Discharge Planning Comments: CM met with patient to complete initial dc planning assessment. CM educated patient on the CM role and verbal consent given by patient to complete assessment. Patient lives at home where she stated that she was independent with her care, but last week she started having friends come to stay with her because she was weak and dizzy. At discharge patient would like to go to [facility] and rehab. LUZ signed and feels this is a safe discharge. Patient has a walker & wheelchair & shower chair at home. CM will continue to follow and will assist as needed with dc plans/needs. Will send referral to [facility] Nut Process Helper: Gina Ramirez DCPIA - Discharge Planning Initial Assessment Updated by [email or web address]: Gina Ramirez on 01/24/19 4:47 pm * Is the patient Alert and Oriented? Yes * How many steps to enter\exit or inside your home? 4 W/RAIL * PCP JEN * Pharmacy [facility] ([place]) * Preadmission Environment Home Alone * ADLs Independent * Equipment Rolling Walker Shower Chair Walker Wheelchair * List name and contact numbers for known caregivers / representatives who currently or will assist patient after discharge: SANDRINE REYES (SON) [phone] SNEHA (DAUGHTER) [phone] * Verbal permission to speak to the caregivers and representatives has been obtained from the patient. N/A * Community resources currently utilized None * Additional services required to return to the preadmission environment? Yes * Can the patient safely return to the preadmission environment? No * Has this patient been hospitalized within the prior 30 days at any hospital? No Coverage Notice Reviewer: [id number] Mario Gibson Notice Issued Date-Time: 02/07/2019 10:38 Notice Type: IM Discharge Notice Notice Delivered To: Patient Relationship to Patient: Self Psychiatric Technician Assistant Name: Delivery Method: HAND - Hand Delivered Angelia Days: Prior Verbal Notification: Recipient Understood Notice: Yes Recipient Signature: Yes Med Rec Note Co-signed by Attending: Coverage Notice Comment: IMM explained, signed, given, copy placed in MR Last DP export: 02/07/19 12:53 p Patient Name: YESENIA REYES Page 18409 at 1506 All edits/amendments must be made on the electronic document DICTATION DATE: 02/08/19 150 APPRENTICE EMBALMER: JOHN 02/08/19 1505 RPT#: [id number] DC DATE:02/07/19 STATUS: DIS IN [facility] [address] [place] [address] END OF REPORT
== END 2019-02-07 14:42 | DRG 884 ==
LOC: D.ER 12:16 → D.MS 15:51 → D.EDHOLD 15:51 → D.MS 16:22
PROVIDERS: Family Medicine; ADMIT Family Medicine; ATTEND Family Medicine
DX: R54 Age-related physical debility (principal); E87.1 Hypo-osmolality and hyponatremia; B37.0 Candidal stomatitis; N39.0 Urinary tract infection, site not specified; A04.72 Enterocolitis due to Clostridium difficile, not specified as recurrent; J20.9 Acute bronchitis, unspecified; E86.0 Dehydration; I10 Essential (primary) hypertension; I25.10 Atherosclerotic heart disease of native coronary artery without angina pectoris; K21.9 Gastro-esophageal reflux disease without esophagitis; M79.2 Neuralgia and neuritis, unspecified; E11.9 Type 2 diabetes mellitus without complications; F44.89 Other dissociative and conversion disorders; R40.2244 Coma scale, best verbal response, confused conversation, 24 hours or more after hospital admission

== ENCOUNTER → 2019-04-28 16:27 | Outpatient (CLI) | payer MEDICARE, BC ==
[2019-01-21 09:19] VITALS: BMI 27.4
[~2019-04-28 16:27] MED LIST changes: +MEDROL DOSE PACK4 MG PO; +Nystatin Oral Susp [ PO; +Vancomycin HCl PO
== END | disposition home or self-care (01) ==
LOC: D.LABREF 16:27
PROVIDERS: ATTEND Podiatrist Foot & Ankle Surgery
DX: D48.5 Neoplasm of uncertain behavior of skin (principal)

== ENCOUNTER → 2019-04-28 16:46 | Outpatient (CLI) | payer MEDICARE, BC ==
[2019-01-21 09:19] VITALS: BMI 27.4
== END | disposition home or self-care (01) ==
LOC: D.LABREF 16:46
PROVIDERS: ATTEND Podiatrist Foot & Ankle Surgery
DX: D48.5 Neoplasm of uncertain behavior of skin (principal)

== ENCOUNTER 2019-12-21 15:02 | Inpatient (IN) | payer MEDICARE ==
[~2019-12-21] VITALS: Ht 170.2 cm; Wt 84.2 kg
[2019-12-21 16:02] LABS: BASOPHILS 0.4 % (0-2); EOSINOPHILS 1.1 % (0-7); HEMATOCRIT 39.5 % (36.0-48.0); HEMOGLOBIN 13.2 g/dL (12-16); IMMATURE GRANULOCYTES 0.2 % (0-5); LYMPHOCYTES 14.9 % (15-50); MCH 30.3 pg (26.0-34.0); MCHC 33.4 g/dL (31.0-37.0); MCV 90.8 fL (80.0-100.0); MEAN PLATELET VOLUME 9.2 fL (7.4-10.4); MONOCYTES 9.2 % (2-11); NEUTROPHILS 74.2 % (40-80); PLATELET COUNT 302 10x3/uL (130-400); RBC 4.35 10x6/uL (4.00-5.40); RDW 12.6 % (11.5-14.5); WBC 8.1 10x3/uL (4.8-10.8)
[2019-12-21 16:25] LABS: ANION GAP 12.6 mmol/L (8-16); CALCIUM 9.2 mg/dL (8.5-10.1); CARBON DIOXIDE 28.5 mmol/L (21.0-32.0); CREATININE - SERUM 0.9 mg/dL (0.6-1.3); POTASSIUM - SERUM 4.1 mmol/L (3.5-5.1)
[2019-12-21 16:30] LABS: ALBUMIN 3.8 g/dL (3.4-5.0); BILIRUBIN - TOTAL 0.47 mg/dL (0.2-1.3); PROTEIN - SERUM 6.9 g/dL (6.4-8.2)
[2019-12-21 17:13] VITALS: BP 173/62
--- NOTE | 2019-12-21 19:50 | NUR ---
ADMITTED 2125 VIA STRETCHER FROM ER PT ALERT AND OX4 PT PRESENTS FROM FALL WITH LEFT SIDED EFFECTED BED LOCKED AND SR X1 PT RECIEVES CALL LIGHT AND FEW REQUEST SEEN TOO
[2019-12-22] VITALS (7 sets, daily range): BP systolic 109–178; BP diastolic 47–73; Ht 170.2 cm; Wt 84.2 kg
--- NOTE | 2019-12-22 07:10 | NUR ---
PATIENT LAYING IN BED ON BACK AWAKE, ALERT AND ORIENTED X 4. AT BS. WILL CONTINUE WITH PLAN OF CARE. SR UP X 2 BED IN LOW POSITION AND CALL LIGHT IN REACH.
--- NOTE | 2019-12-22 13:38 | NUR ---
PATIENT IS STABLE AND UNCHANGED. PATIENT IS STABLE AND VSS. PATIENT DENIES ANY NEEDS OR PAIN. FAMILY AT BS. WILL CONTINUE TO MONITOR. SR UP X 2 BED IN LOW POSITION AND CALL LIGHT IN REACH.
--- NOTE | 2019-12-22 14:15 | NUR ---
PATIENT RETURNED FROM [facility] VIA HOPTAL BED AND ACCOMPANIED BY TITLE CLOSER TEAM STAFF. PATIENT LAYING FLAT IN BED WITH EYES CLOSED AND BREATHING EVENLY. PATIENT AROUSE EASILY TO VOICE. RT GROIN DSG C/D/I. RT GROIN NO SIGNS OF BLEEDING , BRIUSING OR HEMATOMA. VSS STABLE. WILL CONTINUE TO MONITOR. FAMILY AT BS. SR UP X 2 BED IN LOW POSITION AND CALL LIGHT IN REACH,
--- NOTE | 2019-12-22 19:20 | NUR ---
RECEIVED REPORT, WILL ASSUME CARE OF PT, DENIES ANY NEEDS AT THIS TIME, PLACED ON POSESY ALARM, BED IS LOW, SRX2, CALL LIGHT IN REACH, WILL CONTINUE PLAN OF CARE
[2019-12-23] VITALS: BP 141/64
[2019-12-23 04:00] VITALS: BP 125/53
--- NOTE | 2019-12-23 04:37 | NUR ---
I have reviewed this patient and I concur with the Shift Assessment completed by the Licensed Practical Nurse today this shift.
[2019-12-23 08:00] VITALS: BP 165/67
--- NOTE | 2019-12-23 10:50 | NUR ---
ALERT AND ORIENTED. RIGHT FORE ARM SL. BRUISING AROUND LEFT EYE, SPLINT TO LEFT ARM AND FX TO LEFT TOES. BED ALARM ON. SR UP WITH CALL LIGHT IN REACH
[2019-12-23 16:00] VITALS: BP 124/49
--- NOTE | 2019-12-23 17:45 | NUR ---
DENIES ANY NEEDS. SR UP WITH CALL LIGHT IN REACH. CONFUSED AT TIMES WILL MONITOR
--- NOTE | 2019-12-23 19:20 | NUR ---
RECEIVED REPORT, WILL ASSUME CARE OF PT, PT SON ASSIST PT TO RESTROOM AND BACK TO BED, DENIES ANY NEEDS AT THIS TIME, BED IS LOW, SRX2, BEDALARM IS ON, CALL LIGHT IN REACH, WILL CONTINUE PLAN OF CARE
[2019-12-23 20:00] VITALS: BP 122/52
[2019-12-24] VITALS: BP 129/54
[2019-12-24 04:00] VITALS: BP 134/80
--- NOTE | 2019-12-24 05:34 | NUR ---
I have reviewed this patient and I concur with the Shift Assessment completed by the Licensed Practical Nurse today this shift.
--- NOTE | 2019-12-24 07:35 | NUR ---
ALERT AND ORIENTED. RIGHT FA SL. BRUSING TO LEFT ARM AND LEFT EYE. PT HAS A PACEMAKER. BED ALARM ON. DENIES ANY NEEDS.
[2019-12-24 08:00] VITALS: BP 124/51
[2019-12-24 12:00] VITALS: BP 139/71
--- NOTE | 2019-12-24 15:46 | NUR ---
I have reviewed this patient and I concur with the Shift Assessment completed by the Licensed Practical Nurse today this shift.
[2019-12-24 16:00] VITALS: BP 122/47
--- NOTE | 2019-12-24 19:15 | NUR ---
RECEIVED REPORT, WILL ASSUME CARE OF PT, ASSIST PT TO BSC, PLACED CALL LIGHT IN REACH, WILL CONTINUE PLAN OF CARE
[2019-12-24 20:00] VITALS: BP 129/62
[2019-12-25] VITALS: BP 147/57
[2019-12-25 04:00] VITALS: BP 137/56
[2019-12-25 08:03] VITALS: BP 148/67
--- NOTE | 2019-12-25 11:47 | NUR ---
Rehab Prescreening Consult recieved and the chart has been reviewed. She is a good ARU candidate, but has not had a PT eval. Called and discussed with the CM Jodie Gregory RN. Jazmyne Weber RN Clinical Liaison, Rehab
--- NOTE | 2019-12-25 11:53 | NUR ---
WALKING BOOT PLACED ON PT AND ADJUSTED FOR COMFORT.
[2019-12-25 12:04] VITALS: BP 133/47
--- NOTE | 2019-12-25 14:07 | NUR ---
UPON ADMIT, PATIENT HAS NOT HAD A FLU SHOT. WHEN QUESTIONED FOR DISCHARGE SHE STATES THAT DID DID HAVE ONE LAST YEAR.
[2019-12-25 14:57] VITALS: BP 127/55
--- NOTE | 2019-12-25 15:51 | NUR ---
REPORT CALLED TO REHAB, PT TRANSPORTED VIA WHEELCHAIR TO ROOM 1112A. BELONGINGS SENT WITH.
--- NOTE | 2019-12-25 16:09 | MORECARE ---
CASE MANAGEMENT DISCHARGE SUMMARY PATIENT: YESENIA MENDEZ UNIT: [id number] ADM DATE: 12/22/19 AGE: 89 : 31 SEX: F ROOM/BED: D.8336 AUTHOR: SANCHO VELASCO PHYSICIAN: REFERRING PHYSICIAN: CHANELL LI MD DATE OF SERVICE: 12/25/19 Discharge Plan Patient Name: YESENIA MENDEZ [facility] [facility] 1930 Planned Disposition: Inpatient Rehab Anticipated Discharge Date: 12/25/19 Discharge Date: 12/25/2019 Expected LOS: 3 Initial Reviewer: [id number] Initial Review Date: 12/25/2019 Generated: 12/25/19 5:09 pm Coverage Notice Reviewer: [id number] Mario Hines Notice Issued Date-Time: 12/21/2019 18:35 Notice Type: Medicare Outpatient Observation Notice Notice Delivered To: Patient Relationship to Patient: Son Lapping Machine Operator Name: Jerald Mendez Delivery Method: HAND - Hand Delivered Angelia Days: Prior Verbal Notification: Recipient Understood Notice: Yes Recipient Signature: Yes Med Rec Note Co-signed by Attending: Coverage Notice Comment: DE LA O delivered, explained, signed by the patient;s son, and placed in the chart. Signed form also left with patient. Angeles Hines RN, [facility] Patient Name: YESENIA MENDEZ Page 16446 at 1609 All edits/amendments must be made on the electronic document DICTATION DATE: 12/25/19 160 BLUEPRINT REPRODUCER: JOHN 12/25/19 160 RPT#: [id number] DC DATE:12/25/19 STATUS: DIS IN [facility] [address] [place] [address] END OF REPORT
--- NOTE | 2019-12-25 16:19 | MORECARE ---
CASE MANAGEMENT DISCHARGE SUMMARY PATIENT: YESENIA MENDEZ [place] UNIT: [id number] ADM DATE: 12/22/19 AGE: 89 : 31 SEX: F ROOM/BED: D.7996 AUTHOR: ROD,DOC PHYSICIAN: REFERRING PHYSICIAN: CHANELL LI MD DATE OF SERVICE: 12/25/19 Discharge Plan Patient Name: YESENIA MENDEZ [facility] [facility] 1930 Planned Disposition: Inpatient Rehab Anticipated Discharge Date: 12/25/19 Discharge Date: 12/25/2019 Expected LOS: 3 Initial Reviewer: [id number] Initial Review Date: 12/25/2019 Generated: 12/25/19 5:19 pm Comments DCP- Discharge Planning Updated by [id number]: Prasanna Ybarra on 12/25/19 3:[address] Patient Name: YESENIA MENDEZ Admission Status: ER Accout number: [id number] Admission Date: 12-22-2019 : 1930 Admission Diagnosis: Attending: CHANELL LI Current LOS: 3 Anticipated DC Date: 12-25-2019 Planned Disposition: Inpatient Rehab Primary Insurance: MEDICARE A & B PLANNED EXTERNAL PROVIDER: [facility] Discharge Planning Comments: CM RECEIVED INPATIENT REHAB PRESCREENING ORDER, MET WITH PT IN ROOM TO DISCUSS DISCHARGE PLANNING AND NEEDS. PT REPORTS LIVING AT HOME INDEPENDENTLY AND ALONE. PT HAS ROLLING WALKER, SHOWER CHAIR, WALKER AND WHEELCHAIR WITH NO PREFERRED MEDICAL EQUIPMENT PROVIDER. PT HAS NO OUTSIDE SERVICES ASSISTING IN THE HOME. CM DISCUSSED AVAILABILITY OF HOME HEALTH, REHAB SERVICES AND MEDICAL EQUIPMENT. PT WOULD LIKE REHAB SERVICES, CM DISCUSSED REHAB SERVICE PROVIDERS, LOCATIONS AND SERVICES. PT REQUESTED REHAB AT [facility]. IMPORTANT MESSAGE FROM MEDICARE PROVIDED AND EXPLAINED. CM SPOKE TO KATIA OF INPATIENT REHAB, THEY PLAN TO ACCEPT PT TODAY FOR REHAB. PT NOTIFIED, IN AGREEMENT WITH DISCHARGE TO INPATIENT REHAB. DR. LI NOTIFIED. [facility] TO CONTACT MED 2 NURSE WITH ROOM NUMBER WHEN READY TO ACCEPT PT AND NURSE REPORT. Inventory Control/Shipping Receiving: Prasanna Ybarra DCPIA - Discharge Planning Initial Assessment Updated by [id number]: Prasanna Ybarra on 1/27/20 4:09 pm * Is the patient Alert and Oriented? Yes * How many steps to enter\exit or inside your home? 4 W/RAIL * PCP DR. LI * Pharmacy [facility] [place] * Preadmission Environment Home Alone * ADLs Independent * Equipment Rolling Walker Shower Chair Walker Wheelchair * Other Equipment NO MEDICAL EQUIPMENT PROVIDER PREFERENCE * List name and contact numbers for known caregivers / representatives who currently or will assist patient after discharge: SNEHA, DAUGHTER, JERALD MENDEZ, SON, * Verbal permission to speak to the caregivers and representatives has been obtained from the patient. N/A * Community resources currently utilized None * Please name any agencies selected above. NONE * Additional services required to return to the preadmission environment? Yes * Can the patient safely return to the preadmission environment? Yes * Has this patient been hospitalized within the prior 30 days at any hospital? No Coverage Notice Reviewer: [id number] Mario Hines Notice Issued Date-Time: 12/21/2019 18:35 Notice Type: Medicare Outpatient Observation Notice Notice Delivered To: Patient Relationship to Patient: Son Manager Endoscopy Name: Jerald Mendez Delivery Method: HAND - Hand Delivered Angelia Days: Prior Verbal Notification: Recipient Understood Notice: Yes Recipient Signature: Yes Med Rec Note Co-signed by Attending: Coverage Notice Comment: DE LA O delivered, explained, signed by the patient;s son, and placed in the chart. Signed form also left with patient. Agneles Hines RN, [facility] Reviewer: [id number] - Prasanna Ybarra Notice Issued Date-Time: 12/25/2019 12:20 Notice Type: IM Discharge Notice Notice Delivered To: Patient Relationship to Patient: Manager Endoscopy Name: Delivery Method: HAND - Hand Delivered Angelia Days: Prior Verbal Notification: Recipient Understood Notice: Yes Recipient Signature: Yes Med Rec Note Co-signed by Attending: Coverage Notice Comment: DC IM 12-25-19,. 1220, TB Last DP export: 12/25/19 3:09 p Patient Name: YESENIA MENDEZ Page 63905 at 1619 All edits/amendments must be made on the electronic document DICTATION DATE: 12/25/19 1619 GENERAL TELLER: JOHN 12/25/19 1619 RPT#: [id number] DC DATE:12/25/19 STATUS: DIS IN [facility] [address] [place] [address] END OF REPORT
== END 2019-12-25 15:51 | DRG 65 ==
LOC: D.ER 15:02 → D.M2 18:37 → OBSVTIME 18:37 → D.M2 18:37
PROVIDERS: Emergency Medicine; ADMIT Family Medicine; ATTEND Family Medicine
DX: I63.9 Cerebral infarction, unspecified (principal); G93.49 Other encephalopathy; S92.352A Displaced fracture of fifth metatarsal bone, left foot, initial encounter for closed fracture; W18.39XA Other fall on same level, initial encounter; Z91.81 History of falling; S63.502A Unspecified sprain of left wrist, initial encounter; E11.9 Type 2 diabetes mellitus without complications; I10 Essential (primary) hypertension; J44.9 Chronic obstructive pulmonary disease, unspecified; K21.9 Gastro-esophageal reflux disease without esophagitis; R51 Headache; M54.5 Low back pain; S00.83XA Contusion of other part of head, initial encounter; Z95.0 Presence of cardiac pacemaker; Z86.73 Personal history of transient ischemic attack (TIA), and cerebral infarction without residual deficits

== ENCOUNTER → 2020-03-21 13:38 | Outpatient (CLI) | payer MEDICARE ==
[2019-12-26 12:53] VITALS: BMI 28.6
[2020-03-21 14:58] LABS: BILIRUBIN NEGATIVE (NEGATIVE); GLUCOSE NEGATIVE (NEGATIVE); KETONE NEGATIVE (NEGATIVE); NITRITE POSITIVE (NEGATIVE); SPECIFIC GRAVITY 1.015 (1.005-1.020); UROBILINOGEN NORMAL (NORMAL)
[2020-03-21 15:02] LABS: BACTERIA MANY /hpf (NEGATIVE); EPITHELIAL CELLS 0-5 /hpf (0-5); RED CELLS - URINE 0-5 /hpf (0-5)
== END | disposition home or self-care (01) ==
LOC: D.LAB 13:38
PROVIDERS: ATTEND Family Medicine
DX: N39.0 Urinary tract infection, site not specified (principal)

== ENCOUNTER 2020-06-04 12:20 | Emergency (ER) | payer MEDICARE, BC ==
[~2020-06-04] VITALS: Ht 170.2 cm; Wt 68.2 kg
[2020-06-04 12:43] VITALS: Ht 170.2 cm; Wt 68.2 kg
[2020-06-04 13:24] LABS: BASOPHILS 0.6 % (0-2); EOSINOPHILS 1.3 % (0-7); HEMATOCRIT 41.1 % (36.0-48.0); HEMOGLOBIN 13.1 g/dL (12-16); IMMATURE GRANULOCYTES 0.2 % (0-5); LYMPHOCYTES 23.3 % (15-50); MCH 29.6 pg (26.0-34.0); MCHC 31.9 g/dL (31.0-37.0); MEAN PLATELET VOLUME 9.2 fL (7.4-10.4); MONOCYTES 8.5 % (2-11); NEUTROPHILS 66.1 % (40-80); PLATELET COUNT 346 10x3/uL (130-400); RBC 4.42 10x6/uL (4.00-5.40); RDW 12.6 % (11.5-14.5); WBC 4.8 10x3/uL (4.8-10.8)
[2020-06-04 13:32] LABS: ANION GAP 9.2 mmol/L (8-16); CALCIUM 9.1 mg/dL (8.5-10.1); CARBON DIOXIDE 30.1 mmol/L (21.0-32.0); POTASSIUM - SERUM 4.3 mmol/L (3.5-5.1)
[2020-06-04 13:49] LABS: ALBUMIN 3.9 g/dL (3.4-5.0); BILIRUBIN - TOTAL 0.37 mg/dL (0.2-1.3); PROTEIN - SERUM 7.2 g/dL (6.4-8.2)
[2020-06-04 14:52] LABS: BILIRUBIN NEGATIVE (NEGATIVE); GLUCOSE NEGATIVE (NEGATIVE); KETONE NEGATIVE (NEGATIVE); NITRITE NEGATIVE (NEGATIVE); UROBILINOGEN NORMAL (NORMAL)
[2020-06-04] MEDS ORDERED: MONISTAT 31 EA VG (15:49)
[2020-06-04] MEDS ORDERED: DIFLUCAN150 MG PO (15:49)
[2020-06-04 16:30] VITALS: BP 160/85
== END 2020-06-04 16:30 | disposition home or self-care (01) ==
LOC: D.ER 12:20
PROVIDERS: Family Medicine
DX: B37.3 Candidiasis of vulva and vagina (principal); E87.8 Other disorders of electrolyte and fluid balance, not elsewhere classified; E87.1 Hypo-osmolality and hyponatremia; E11.9 Type 2 diabetes mellitus without complications; I10 Essential (primary) hypertension; Z95.0 Presence of cardiac pacemaker; Z86.73 Personal history of transient ischemic attack (TIA), and cerebral infarction without residual deficits; K21.9 Gastro-esophageal reflux disease without esophagitis

== ENCOUNTER 2020-07-10 12:51 | Inpatient (IN) | payer MEDICARE, BC ==
[~2020-07-10] VITALS: Ht 170.2 cm; Wt 76.0 kg
[~2020-07-10 12:51] MED LIST changes: +DIFLUCAN150 MG PO; +MONISTAT 31 EA VG
[2020-07-10 14:00] VITALS: BP 173/63
--- NOTE | 2020-07-10 14:00 | NUR ---
ASSITED UP TO BSC, CLEAN CATCH URINE SPEC COLELCTED, LABELED AT BS AND SENT TO LAB
[2020-07-10 14:18] LABS: BASOPHILS 0.2 % (0-2); EOSINOPHILS 1.3 % (0-7); HEMATOCRIT 36.8 % (36.0-48.0); HEMOGLOBIN 12.4 g/dL (12-16); IMMATURE GRANULOCYTES 0.4 % (0-5); LYMPHOCYTES 18.9 % (15-50); MCH 30.3 pg (26.0-34.0); MCHC 33.7 g/dL (31.0-37.0); MEAN PLATELET VOLUME 8.8 fL (7.4-10.4); MONOCYTES 9.8 % (2-11); NEUTROPHILS 69.4 % (40-80); RBC 4.09 10x6/uL (4.00-5.40); RDW 13.4 % (11.5-14.5); WBC 5.4 10x3/uL (4.8-10.8)
[2020-07-10 14:19] LABS: PLATELET COUNT 253 10x3/uL (130-400)
[2020-07-10 14:24] LABS: CALC OSMOLALITY 251 mosm/kg (275-300); CALCIUM 8.8 mg/dL (8.5-10.1); CARBON DIOXIDE 29.3 mmol/L (21.0-32.0); CHLORIDE - SERUM 89 mmol/L (98-107); GLUCOSE 116 mg/dL (74-106); POTASSIUM - SERUM 3.8 mmol/L (3.5-5.1); SODIUM 124 mmol/L (136-145); UREA NITROGEN 14 mg/dL (7-18); eGFR NON AFRICAN AMERICAN 55 mL/min (90-120)
[2020-07-10 14:41] LABS: ALBUMIN 3.6 g/dL (3.4-5.0); ALKALINE PHOSPHATASE 87 U/L (30-120); ALT (SGPT) 19 U/L (10-68); BILIRUBIN - TOTAL 0.44 mg/dL (0.2-1.3); CKMB 1.4 U/L (0.0-3.6); CREATINE KINASE 31 UL (21-215); MAGNESIUM - SERUM 1.9 mg/dL (1.8-2.4); PROTEIN - SERUM 6.5 g/dL (6.4-8.2); THYROID STIMULATING HORMONE 0.41 uIU/mL (0.36-3.74); TROPONIN-I < 0.017 ng/mL (0.000-0.060)
[2020-07-10 15:09] LABS: BILIRUBIN NEGATIVE (NEGATIVE); GLUCOSE NEGATIVE (NEGATIVE); KETONE NEGATIVE (NEGATIVE); NITRITE NEGATIVE (NEGATIVE); UROBILINOGEN NORMAL (NORMAL)
[2020-07-10 16:00] VITALS: BP 167/66
--- NOTE | 2020-07-10 17:50 | NUR ---
REPORT CALLED TO KATIA CASIANO
[2020-07-10 18:03] VITALS: BP 167/66
--- NOTE | 2020-07-10 18:22 | NUR ---
ADMIT TO ROOM # 2102, CONDITION STABLE
--- NOTE | 2020-07-10 18:48 | NUR ---
PT ARRIVED VIA STRECHER. AMBULATED WITH CANE AND MINIMAL ASSISTANCE TO BED. ORIENTED TO ROOM. ASSISTED TO BATHROOM AND BACK. CALL LIGHT WITHIN REACH. DENIES NEEDS OR PAIN AT THIS TIME. BED IN LOWEST POSITION. WILL CONTINUE TO MONITOR.
[2020-07-10 20:00] VITALS: BP 169/61
--- NOTE | 2020-07-10 20:10 | NUR ---
PATIENT IS RESTING IN BED. SHE IS ALERT AND ORIENTATED. HE IS ON ROOM AIR, IV FLUIDS, AND HAS A PACEMAKER. WE WILL CONTINUE TO MONITOR HER ELECTROLYTE STATUS.
[2020-07-10 21:41] VITALS: BP 169/61; Ht 170.2 cm; Wt 76.0 kg
--- NOTE | 2020-07-11 03:54 | NUR ---
PATIENT IS SLEEPING IN BED. SHE IS UP WITH ASSIST WITH A CANE. PATIENT HAS NO COMPLAINTS AT THIS TIME.
[2020-07-11 06:31] LABS: HEMATOCRIT 33.2 % (36.0-48.0); HEMOGLOBIN 11.1 g/dL (12-16); LYMPHOCYTES 22.9 % (15-50); MCH 30.6 pg (26.0-34.0); MCHC 33.4 g/dL (31.0-37.0); MCV 91.5 fL (80.0-100.0); MEAN PLATELET VOLUME 8.2 fL (7.4-10.4); NEUTROPHILS 65.5 % (40-80); PLATELET COUNT 251 10x3/uL (130-400); RBC 3.63 10x6/uL (4.00-5.40); RDW 13.4 % (11.5-14.5); WBC 4.5 10x3/uL (4.8-10.8)
[2020-07-11 07:03] LABS: ALKALINE PHOSPHATASE 73 U/L (30-120); ALT (SGPT) 19 U/L (10-68); BILIRUBIN - TOTAL 0.38 mg/dL (0.2-1.3); CALC OSMOLALITY 254 mosm/kg (275-300); CALCIUM 8.3 mg/dL (8.5-10.1); CARBON DIOXIDE 25.8 mmol/L (21.0-32.0); CHLORIDE - SERUM 95 mmol/L (98-107); CKMB 0.7 U/L (0.0-3.6); CREATINE KINASE 18 UL (21-215); CREATININE - SERUM 0.9 mg/dL (0.6-1.3); GLUCOSE 95 mg/dL (74-106); MAGNESIUM - SERUM 1.8 mg/dL (1.8-2.4); PROTEIN - SERUM 5.2 g/dL (6.4-8.2); SODIUM 127 mmol/L (136-145); TROPONIN-I < 0.017 ng/mL (0.000-0.060); UREA NITROGEN 13 mg/dL (7-18); eGFR NON AFRICAN AMERICAN 62 mL/min (90-120)
[2020-07-11 08:00] VITALS: BP 163/71
--- NOTE | 2020-07-11 10:00 | NUR ---
I have reviewed this patient and I concur with the Shift Assessment completed by the Licensed Practical Nurse today this shift.
[2020-07-11 11:00] VITALS: BP 160/72
--- NOTE | 2020-07-11 13:00 | MORECARE ---
CASE MANAGEMENT DISCHARGE SUMMARY PATIENT: YESENIA REYES UNIT: [id number] ADM DATE: 07/10/20 AGE: 89 : 31 SEX: F ROOM/BED: D.2102 AUTHOR: SANCHO VELASCO PHYSICIAN: REFERRING PHYSICIAN: CAROLYN MOSQUEDA MD DATE OF SERVICE: 07/11/20 Discharge Plan Patient Name: YESENIA REYES [facility] [facility] 1930 Planned Disposition: Anticipated Discharge Date: Discharge Date: Expected LOS: Initial Reviewer: [id number] Initial Review Date: 07/10/2020 Generated: 07/11/20 2:00 pm Patient Name: YESENIA REYES Page 65740 at 1300 All edits/amendments must be made on the electronic document DICTATION DATE: 07/11/20 1300 CUSTOMER RESPONSE REPRESENTATIVE: JOHN 07/11/20 1300 RPT#: [id number] DC DATE: STATUS: ADM IN [facility] [address] [place] [address] END OF REPORT
--- NOTE | 2020-07-11 13:17 | MORECARE ---
CASE MANAGEMENT DISCHARGE SUMMARY PATIENT: YESENIA MENDEZ UNIT: [id number] ADM DATE: 07/10/20 AGE: 89 : 31 SEX: F ROOM/BED: D.2102 AUTHOR: SANCHO VELASCO PHYSICIAN: REFERRING PHYSICIAN: CAROLYN MOSQUEDA MD DATE OF SERVICE: 07/11/20 Discharge Plan Patient Name: YESENIA MENDEZ [facility] [facility] 1930 Planned Disposition: Anticipated Discharge Date: Discharge Date: Expected LOS: Initial Reviewer: [id number] Initial Review Date: 07/10/2020 Generated: 07/11/20 2:17 pm Comments DCP- Discharge Planning Updated by [id number]: Mechelle Obrien on 07/11/20 12:[address] Verified that with Milena that patient is current with [facility], #[phone]. Emergency contact: Michelle Hart (daughter) [phone], Jerald Mendez (son) [phone]. Last DP export: 07/11/20 12:00 p Patient Name: YESENIA MENDEZ Page 49315 at 1317 All edits/amendments must be made on the electronic document DICTATION DATE: 07/11/20 131 TUBE MOLDER FIBERGLASS: JOHN 07/11/20 1317 RPT#: [id number] DC DATE: STATUS: ADM IN [facility] [address] [place] [address] END OF REPORT
[2020-07-11 15:00] VITALS: BP 143/67
[2020-07-11 21:20] VITALS: BP 167/57
--- NOTE | 2020-07-11 21:31 | NUR ---
PATIENT IS RESTING IN BED. SHE IS ALERT AND ORIENTED. SHE IS ON ROOM AIR. IV FLUIDS WERE STOPPED BY DAY TIME NURSE. WE WILL CONTINUE TO MONITOR HER ELECTROLYTES.
[2020-07-12 04:02] VITALS: BP 133/52
[2020-07-12 05:45] LABS: BASOPHILS 0.6 % (0-2); EOSINOPHILS 2.8 % (0-7); HEMATOCRIT 33.3 % (36.0-48.0); HEMOGLOBIN 10.9 g/dL (12-16); IMMATURE GRANULOCYTES 0.2 % (0-5); LYMPHOCYTES 22.9 % (15-50); MCH 29.9 pg (26.0-34.0); MCHC 32.7 g/dL (31.0-37.0); MCV 91.2 fL (80.0-100.0); MEAN PLATELET VOLUME 8.5 fL (7.4-10.4); MONOCYTES 9.1 % (2-11); NEUTROPHILS 64.4 % (40-80); PLATELET COUNT 228 10x3/uL (130-400); RBC 3.65 10x6/uL (4.00-5.40); RDW 13.5 % (11.5-14.5); WBC 4.7 10x3/uL (4.8-10.8)
[2020-07-12 06:14] LABS: ANION GAP 9.3 mmol/L (8-16); CALCIUM 8.6 mg/dL (8.5-10.1); CARBON DIOXIDE 27.6 mmol/L (21.0-32.0); CREATININE - SERUM 0.9 mg/dL (0.6-1.3); POTASSIUM - SERUM 3.9 mmol/L (3.5-5.1)
[2020-07-12 09:20] VITALS: BP 155/53
[2020-07-12 13:53] VITALS: BP 179/59
[2020-07-12 16:00] VITALS: BP 160/85
--- NOTE | 2020-07-12 16:37 | MORECARE ---
CASE MANAGEMENT DISCHARGE SUMMARY PATIENT: YESENIA MENDEZ UNIT: [id number] ADM DATE: 07/10/20 AGE: 89 : 31 SEX: F ROOM/BED: D.2102 AUTHOR: SANCHO VELASCO PHYSICIAN: REFERRING PHYSICIAN: CAROLYN MOSQUEDA MD DATE OF SERVICE: 07/12/20 Discharge Plan Patient Name: YESENIA MENDEZ [facility] [facility] 1930 Planned Disposition: Anticipated Discharge Date: Discharge Date: Expected LOS: Initial Reviewer: [email or web address] Initial Review Date: 07/10/2020 Generated: 07/12/20 5:37 pm Comments DCP- Discharge Planning Updated by [email or web address]: Mechelle Obrien on 07/12/20 3:[address] CM met with patient regarding DC needs/plans. Patient is in agreement with same. Patient lives in her home, alone. Caregiver/Son: Jerald Mendez (son) [phone]. Patient is current with [facility]. Required information faxed to [facility]. Per the patient, a nurse visits her every Wednesday for evaluation and filling her medication box. PCP: Dr. Merino. Pharmacy: [facility] mail-off. DME: jone childers, built-in shower bench, hand held shower, emergency necklace. Patient voices no other needs at this time. She declines a SNF stay. Patient's son is at bedside to drive her home. Verified that with [facility] that patient is current with [facility], #[phone]. Emergency contact: Michelle Hart (daughter) [phone], Jerald Mendez (son) [phone]. Last DP export: 07/11/20 12:17 p Patient Name: YESENIA MENDEZ Page [phone] at 1637 All edits/amendments must be made on the electronic document DICTATION DATE: 07/12/20 1637 PROOFER: JOHN 07/12/20 1637 RPT#: [id number] DC DATE: STATUS: ADM IN [facility] [address] [place] [address] END OF REPORT
--- NOTE | 2020-07-12 16:46 | MORECARE ---
CASE MANAGEMENT DISCHARGE SUMMARY PATIENT: YESENIA MENDEZ UNIT: [id number] ADM DATE: 07/10/20 AGE: 89 : 31 SEX: F ROOM/BED: D.2102 AUTHOR: SNACHO VELASCO PHYSICIAN: REFERRING PHYSICIAN: CAROLYN MOSQUEDA MD DATE OF SERVICE: 07/12/20 Discharge Plan Patient Name: YESENIA MENDEZ [facility] [facility] 1930 Planned Disposition: Home Health Service Anticipated Discharge Date: 07/12/20 Discharge Date: Expected LOS: 2 Initial Reviewer: [email or web address] Initial Review Date: 07/10/2020 Generated: 07/12/20 5:45 pm Comments DCP- Discharge Planning Updated by [email or web address]: Mechelle Obrien on 07/12/20 3:[address] CM met with patient regarding DC needs/plans. Patient is in agreement with [facility]. Patient lives in her home, alone. Caregiver/Son: Jerald Mendez (son) [phone]. Patient is current with [facility]. Required information faxed to [facility]. Per the patient, a nurse visits her every Wednesday for evaluation and filling her medication box. PCP: Dr. Merino. Pharmacy: [facility] mail-off. DME: jone childers, built-in shower bench, hand held shower, emergency necklace. Patient voices no other needs at this time. She declines a SNF stay. Patient's son is at bedside to drive her home. Verified that with Milena that patient is current with [facility], #[phone]. Emergency contact: Michelle Hart (daughter) [phone], Jerald Mendez (son) [phone]. Last DP export: 07/11/20 12:17 p Patient Name: YESENIA MENDEZ Page [phone] at 1646 All edits/amendments must be made on the electronic document DICTATION DATE: 07/12/201644 ELECTRO MECHANICAL ASSEMBLER: JOHN 07/12/201644 RPT#: [id number] DC DATE: STATUS: ADM IN [facility] [address] [place] [address] END OF REPORT
--- NOTE | 2020-07-12 17:04 | MORECARE ---
CASE MANAGEMENT DISCHARGE SUMMARY PATIENT: YESENIA MENDEZ UNIT: [id number] ADM DATE: 07/10/20 AGE: 89 : 31 SEX: F ROOM/BED: D.2102 AUTHOR: SANCHO VELASCO PHYSICIAN: REFERRING PHYSICIAN: CAROLYN MOSQUEDA MD DATE OF SERVICE: 07/12/20 Discharge Plan Patient Name: YESENIA MENDEZ [facility]: [facility]:[place] : 1930 Planned Disposition: Home Health Service Anticipated Discharge Date: 07/12/20 Discharge Date: Expected LOS: 2 Initial Reviewer: [email or web address] Initial Review Date: 07/10/2020 Generated: 07/12/20 6:03 pm Comments DCP- Discharge Planning Updated by [email or web address]: Mechelle Obrien on 07/12/20 3:[address] CM contacted Judith with [facility] to make her aware that patient has dc'd today. Faxed required information. CM met with patient regarding DC needs/plans. Patient is in agreement with [facility]. Patient lives in her home, alone. Caregiver/Son: Jerald Mendez (son) [phone]. Patient is current with [facility]. Required information faxed to [facility]. Per the patient, a nurse visits her every Wednesday for evaluation and filling her medication box. PCP: Dr. Merino. Pharmacy: [facility] mail-off. DME: walker, cane, built-in shower bench, hand held shower, emergency necklace. Patient voices no other needs at this time. She declines a SNF stay. Patient's son is at bedside to drive her home. Verified that with [facility] that patient is current with [facility], #[phone]. Emergency contact: Michelle Hart (daughter) [phone], Jerald Mendez (son) [phone]. Last DP export: 07/12/20 3:46 p Patient Name: YESENIA MENDEZ Page 16359 at 1704 All edits/amendments must be made on the electronic document DICTATION DATE: 08/14/20 1704 SOIL ENGINEER: JOHN 07/12/201703 RPT#: [id number] DC DATE: STATUS: ADM IN [facility] [address] [place] [address] END OF REPORT
--- NOTE | 2020-07-15 11:41 | MORECARE ---
CASE MANAGEMENT DISCHARGE SUMMARY PATIENT: YESENIA MENDEZ UNIT: [id number] ADM DATE: 07/10/20 AGE: 89 : 31 SEX: F ROOM/BED: D.2109 AUTHOR: ROD,DOC PHYSICIAN: REFERRING PHYSICIAN: CAROLYN MOSQUEDA MD DATE OF SERVICE: 07/15/20 Discharge Plan Patient Name: YESENIA MENDEZ Facility: [facility]:[place] : 1930 Planned Disposition: Home Health Service Anticipated Discharge Date: 07/12/20 Discharge Date: 07/12/2020 Expected LOS: 2 Initial Reviewer: [email or web address] Initial Review Date: 07/10/2020 Generated: 07/15/20 12:40 pm Comments DCP- Discharge Planning Updated by [email or web address]: Mechelle Obrien on 07/15/20 10:[address] Refaxed information to [facility], with [facility], per their request.. DCP- Discharge Planning Updated by [email or web address]: Mechelle Obrien on 07/12/20 3:[address] CM contacted Judith with [facility] to make her aware that patient has dc'd today. Faxed required information. CM met with patient regarding DC needs/plans. Patient is in agreement with [facility]. Patient lives in her home, alone. Caregiver/Son: Jerald Mendez (son) [phone]. Patient is current with [facility]. Required information faxed to [facility]. Per the patient, a nurse visits her every Wednesday for evaluation and filling her medication box. PCP: Dr. Merino. Pharmacy: [facility] mail-off. DME: walker, cane, built-in shower bench, hand held shower, emergency necklace. Patient voices no other needs at this time. She declines a SNF stay. Patient's son is at bedside to drive her home. Verified that with [facility]ena that patient is current with [facility], #[phone]. Emergency contact: Michelle Hart (daughter) [phone], Jerald Mendez (son) [phone]. External Providers External Provider: [facility] Next Contact Date: Service Request Date: Service Type: Resolution: Reviewer: Comments: Coverage Notice Reviewer: [email or web address] Mario Mechelle Camille Notice Issued Date-Time: 07/12/2020 18:05 Notice Type: IM Discharge Notice Notice Delivered To: Patient Relationship to Patient: Self Laboratory Operations Coordinator Name: Yesenia Mendez Delivery Method: HAND - Hand Delivered Angelia Days: Prior Verbal Notification: Recipient Understood Notice: Yes Recipient Signature: Med Rec Note Co-signed by Attending: Coverage Notice Comment: DC IMM signed/given to patient. Original to chart. Reviewer: [email or web address] Mario Obrien Notice Issued Date-Time: 07/12/2020 18:05 Notice Type: Patient Choice Letter Notice Delivered To: Patient Relationship to Patient: Self Laboratory Operations Coordinator Name: Yesenia Mendez Delivery Method: HAND - Hand Delivered Angelia Days: Prior Verbal Notification: Recipient Understood Notice: Yes Recipient Signature: Yes Med Rec Note Co-signed by Attending: Coverage Notice Comment: Patient choice for [facility]. Original to chart. Last DP export: 07/12/20 4:04 p Patient Name: YESENIA MENDEZ Page 69909 at 1141 All edits/amendments must be made on the electronic document DICTATION DATE: 07/15/20 1140 OUTSOLE SCHEDULER: JOHN 07/15/20 1140 RPT#: [id number] DC DATE:07/12/20 STATUS: DIS IN [facility] [address] [place] [address] END OF REPORT
== END 2020-07-12 16:30 | disposition home health service (06) | DRG 641 ==
LOC: D.ER 12:51 → D.M2 16:29
PROVIDERS: Family Medicine; ADMIT Family Medicine; ATTEND Family Medicine
DX: E87.1 Hypo-osmolality and hyponatremia (principal); R53.1 Weakness; W19.XXXA Unspecified fall, initial encounter; Z91.81 History of falling; E11.9 Type 2 diabetes mellitus without complications; I10 Essential (primary) hypertension; J44.9 Chronic obstructive pulmonary disease, unspecified; K21.9 Gastro-esophageal reflux disease without esophagitis; Z95.0 Presence of cardiac pacemaker; Z86.73 Personal history of transient ischemic attack (TIA), and cerebral infarction without residual deficits

== ENCOUNTER 2021-03-13 14:36 | Inpatient (IN) | payer MEDICARE, BC ==
[~2021-03-13] VITALS: Ht 170.2 cm; Wt 78.5 kg
[~2021-03-13 14:36] MED LIST changes: +CATAPRES0.1 MG PO; +GARLIC PO; +HYDRALAZINE HCL25 MG PO; +IBUPROFEN800 MG PO; +MACROBID100 MG PO; +MERIBIN5 MG PO
[2021-03-13] MEDS ORDERED: COLACE100 MG PO (14:42)
[2021-03-13] MEDS ORDERED: VITAMIN B-121000 MCG PO (14:42)
[2021-03-13] MEDS ORDERED: ASCORBIC ACID500 MG PO (14:43)
[2021-03-13] MEDS ORDERED: ESTRACE 0.0142.5 GM VG (14:45)
[2021-03-13] MEDS ORDERED: MYCOSTATIN 15 G15 GM TOPICAL (14:46)
[2021-03-13] MEDS ORDERED: EDARBYCLOR 40-1 EACH PO (14:48)
[2021-03-13] MEDS ORDERED: CALCIUM/MAG/ZINC PO (14:48)
[2021-03-13 15:00] VITALS: BP 168/64
[2021-03-13 15:46] LABS: BASOPHILS 0.2 % (0-2); EOSINOPHILS 0.9 % (0-7); HEMATOCRIT 35.4 % (36.0-48.0); HEMOGLOBIN 12.2 g/dL (12-16); IMMATURE GRANULOCYTES 0.4 % (0-5); LYMPHOCYTE ABS# 1.14 10x3/uL (1.18-3.74); LYMPHOCYTES 25.6 % (15-50); MCH 29.8 pg (26.0-34.0); MCHC 34.5 g/dL (31.0-37.0); MCV 86.6 fL (80.0-100.0); MEAN PLATELET VOLUME 9.2 fL (7.4-10.4); MONOCYTES 10.5 % (2-11); NEUTROPHIL ABS# 2.78 10x3/uL (1.56-6.13); NEUTROPHILS 62.4 % (40-80); PLATELET COUNT 330 10x3/uL (130-400); RBC 4.09 10x6/uL (4.00-5.40); RDW 12.4 % (11.5-14.5); WBC 4.5 10x3/uL (4.8-10.8)
[2021-03-13 16:00] LABS: INFLUENZA TYPE A NEGATIVE (NEGATIVE); INFLUENZA TYPE B NEGATIVE (NEGATIVE)
[2021-03-13 16:14] LABS: ALBUMIN 3.8 g/dL (3.4-5.0); BILIRUBIN - TOTAL 0.54 mg/dL (0.2-1.3); CALCIUM 8.8 mg/dL (8.5-10.1); CARBON DIOXIDE 23.9 mmol/L (21.0-32.0); POTASSIUM - SERUM 3.8 mmol/L (3.5-5.1)
[2021-03-13 16:30] LABS: ANION GAP 13.9 mmol/L (8-16)
--- NOTE | 2021-03-13 16:30 | NUR ---
SWAB FOR COVID ANTIGEN REPEATED PER LAB INSTRUCTION.
[2021-03-13 16:31] VITALS: BP 283/134
[2021-03-13 16:49] VITALS: BP 216/80
[2021-03-13 16:56] VITALS: BP 192/71
[2021-03-13 16:56] LABS: SARS-CoV-2 ANTIGEN NEGATIVE- SARS-COV-2 (NEGATIVE)
--- NOTE | 2021-03-13 16:59 | NUR ---
BP READING AT 1631 283/134. BP RECHECKED AT 1649 - 216/80, AND 1656 - 192/71. PATIENT C/O HEADACHE IN OCCIPITAL AREA. NEURO SIGNS WNL. Amando ROSE, FARIBA, INFORMED.
[2021-03-13 19:17] VITALS: BP 164/59
--- NOTE | 2021-03-13 19:43 | NUR ---
URINE SENT TO LAB
[2021-03-13 19:48] LABS: BILIRUBIN NEGATIVE (NEGATIVE); KETONE NEGATIVE (NEGATIVE); NITRITE NEGATIVE (NEGATIVE); UROBILINOGEN NORMAL mg/dL (< 2)
[2021-03-13 20:00] VITALS: BP 161/55
--- NOTE | 2021-03-13 20:36 | NUR ---
NS BOLUS STILL RUNNING REPORT GIVEN TO MED SURG. THEY WILL START MAINTANENCE FLUIDS
--- NOTE | 2021-03-13 21:00 | NUR ---
PT BROUGHT TO FLOOR AOX4. IV LEFT FA INFUSING NS @ 100. SCDS PLACED ON BILAT. INCENTIVE SPIROMETER GIVEN TO PT. EDUCATED ON USE OF BOTH AND PT DEMONSTRATED PROPER USE OF IS. NON SLIP SOCKS ON. RAE ON. PUREWICK PUT ON. PT GIVEN APPLESAUCE, DAVION CRACKERS AND MILK UPON REQUEST. FLUID RESTRICTION SIGN PLACED ON DOOR. PT REFUSED YELLOW GOWN STATING SHE WANTED HER OWN GOWN. DENIES OTHER NEEDS AT THIS TIME. CL IN REACH
[2021-03-13 23:29] VITALS: BMI 27.1
[2021-03-14] VITALS: BP 158/71
[2021-03-14 04:00] VITALS: BP 90/60
[2021-03-14 05:42] LABS: BASOPHILS 0 % (0-2); EOSINOPHILS 0 % (0-7); HEMATOCRIT 35.8 % (36.0-48.0); HEMOGLOBIN 11.8 g/dL (12-16); IMMATURE GRANULOCYTES 0.5 % (0-5); LYMPHOCYTE ABS# 0.38 10x3/uL (1.18-3.74); LYMPHOCYTES 17.1 % (15-50); MCH 28.8 pg (26.0-34.0); MCV 87.3 fL (80.0-100.0); MEAN PLATELET VOLUME 9.7 fL (7.4-10.4); MONOCYTES 1.4 % (2-11); PLATELET COUNT 337 10x3/uL (130-400); RDW 12.5 % (11.5-14.5)
[2021-03-14 05:53] LABS: APTT 33.8 SECONDS (22.8-39.4); INR 1.16 (0.85-1.17); PROTIME 13.7 SECONDS (11.6-15.0)
[2021-03-14 05:59] LABS: ALBUMIN 3.2 g/dL (3.4-5.0); ANION GAP 11.5 mmol/L (8-16); BILIRUBIN - TOTAL 0.3 mg/dL (0.2-1.3); CALCIUM 8.7 mg/dL (8.5-10.1); CARBON DIOXIDE 24.4 mmol/L (21.0-32.0); CREATININE - SERUM 0.8 mg/dL (0.6-1.3); POTASSIUM - SERUM 3.9 mmol/L (3.5-5.1); PROTEIN - SERUM 6.3 g/dL (6.4-8.2)
[2021-03-14 06:06] LABS: WBC 2.2 10x3/uL (4.8-10.8)
[2021-03-14 07:36] VITALS: BP 190/73
--- NOTE | 2021-03-14 09:00 | NUR ---
RECIEVED BEDSIDE REPORT. BED LOW POSITION, CALL LIGHT IN REACH. DENIES NEEDS AT THIS TIME. WILL CONTINUE TO MONITOR.
--- NOTE | 2021-03-14 10:00 | NUR ---
IV WENT BAD. NEW IV PLACED IN LEFT FOREARM. 22 GAUGE. OLD IV REMOVED, CATH TIP INTACT.
[2021-03-14 11:22] VITALS: BP 191/58
[2021-03-14 16:08] VITALS: Ht 170.2 cm; Wt 78.5 kg
[2021-03-14 18:01] VITALS: BP 156/71
[2021-03-14 21:13] VITALS: BP 187/72
[2021-03-15 00:38] VITALS: BP 163/58
[2021-03-15 05:24] VITALS: BP 181/61
[2021-03-15 07:17] LABS: BASOPHILS 0 % (0-2); EOSINOPHILS 0 % (0-7); HEMATOCRIT 34.4 % (36.0-48.0); HEMOGLOBIN 11.6 g/dL (12-16); IMMATURE GRANULOCYTES 0.2 % (0-5); LYMPHOCYTE ABS# 0.62 10x3/uL (1.18-3.74); LYMPHOCYTES 9.4 % (15-50); MCH 29.5 pg (26.0-34.0); MCHC 33.7 g/dL (31.0-37.0); MCV 87.5 fL (80.0-100.0); MEAN PLATELET VOLUME 9.7 fL (7.4-10.4); MONOCYTES 5.6 % (2-11); NEUTROPHILS 84.8 % (40-80); PLATELET COUNT 366 10x3/uL (130-400); RBC 3.93 10x6/uL (4.00-5.40); RDW 12.5 % (11.5-14.5)
[2021-03-15 07:25] LABS: WBC 6.6 10x3/uL (4.8-10.8)
[2021-03-15 07:27] LABS: ANION GAP 11.6 mmol/L (8-16); CALCIUM 9.1 mg/dL (8.5-10.1); CARBON DIOXIDE 24.9 mmol/L (21.0-32.0); CREATININE - SERUM 0.8 mg/dL (0.6-1.3); POTASSIUM - SERUM 3.5 mmol/L (3.5-5.1)
--- NOTE | 2021-03-15 07:30 | NUR ---
MORNING ROUNDS MADE, PATIENT FOUND WET WITH URINE. CLAIMS VP DIRECTOR OF CREATIVE STRATEGY NURSE ATTEMPTED TO FIX PUREWICK BUT WAS NOT SUCCESSFUL. CHANGED KWABENA PADS AND REPOSITIONED PUREWICK. PT PLEASED WITH THIS. DENIES FURTHER NEEDS. BED IN LOWEST POSITION, BED RAILS X2, CALL LIGHT WITHIN REACH. WILL CONTINUE POC.
[2021-03-15 09:29] VITALS: BP 159/51
--- NOTE | 2021-03-15 10:01 | NUR ---
AAOX4 UPON ENTERING. ADMINISTERED MORNING MEDICATION WITH APPLE SAUCE, NO DIFFICULTIES. RESTING UP RIGHT. REQUESTING ICE CHIPS. DENIES FURTHER NEEDS AT THIS TIME. BED IN LOWEST POSITION, BED RAILS X2, CALL LIGHT WITHIN REACH. WILL CONTINUE POC.
--- NOTE | 2021-03-15 12:33 | NUR ---
UPRIGHT IN BED, ADMINISTERED MEDICATION, NO DIFFICULTIES. EATING LUNCH AT THIS TIME. DENIES FURTHER NEEDS. WILL CONTINUE POC.
--- NOTE | 2021-03-15 13:45 | NUR ---
HELPED PT AMBULATE TO BEDSIDE CHAIR. MINIMAL DIFFICULTIES. PUREWICK CHANGED AND BRIEF PUT ON. SITTING COMFORTABLY AND DENIES ANY NEEDS AT THIS TIME. WILL CONTINUE POC.
[2021-03-15 14:22] VITALS: BP 175/63
--- NOTE | 2021-03-15 15:13 | NUR ---
I have reviewed this patient and I concur with the Shift Assessment completed by the Licensed Practical Nurse today this shift.
--- NOTE | 2021-03-15 17:16 | NUR ---
ADMINISTERED MEDICATION, NO DIFFICULTIES. STILL UPRIGHT IN BEDSIDE CHAIR. REQUESTING WARM BROTH. DENIES FURTHER NEEDS. WILL CONTINUE POC.
--- NOTE | 2021-03-15 19:00 | NUR ---
BEDSIDE REPORT RECEIVED AND CARE OF PT ASSUMED. PT SITTING UP IN CHAIR AT THIS TIME WATCHING TV. ASSISTED PT IN PERFORMING ORAL CARE. PUREWICK EXTERNAL CATHETER IN USE WITH YELLOW URINE IN COLLECTION CANNISTER. WILL MONITOR FOR NEEDS.
[2021-03-15 19:04] VITALS: BP 132/69
--- NOTE | 2021-03-15 20:41 | NUR ---
HS MEDICATIONS GIVEN TO INCLUDE XANAX PO PER REQUEST FOR SLEEP AND ANXIETY. GAVE MEDS WHOLE IN APPLESAUCE. GAVE 4 OZ PRUNE JUICE FOR PT C/O CONSTIPATION. WILL CONTINUE TO MONITOR CLOSLEY FOR NEEDS.
--- NOTE | 2021-03-15 20:50 | NUR ---
ASSISTED PT BACK INTO BED AND APPLIED NYSTATIN TO LABIA PER ORDER. PUREWICK IN USE FOR INCONTINENCE. POSITIONED FOR COMFORT. CALL LIGHT WITHIN REACH. WILL CONTINUE TO MONITOR FOR NEEDS.
[2021-03-15 22:27] VITALS: BP 163/51
--- NOTE | 2021-03-15 22:59 | NUR ---
CHANGED VAGINAL CREAM TO HS PER PT REQUEST, SHE TAKES AT BEDTIME AT HOME.
[2021-03-16 05:33] LABS: BASOPHILS 0.2 % (0-2); EOSINOPHILS 0.5 % (0-7); HEMATOCRIT 33.6 % (36.0-48.0); HEMOGLOBIN 10.9 g/dL (12-16); IMMATURE GRANULOCYTES 0.3 % (0-5); LYMPHOCYTE ABS# 1.73 10x3/uL (1.18-3.74); LYMPHOCYTES 26.8 % (15-50); MCHC 32.4 g/dL (31.0-37.0); MCV 89.4 fL (80.0-100.0); MEAN PLATELET VOLUME 9.5 fL (7.4-10.4); MONOCYTES 13.5 % (2-11); NEUTROPHIL ABS# 3.79 10x3/uL (1.56-6.13); NEUTROPHILS 58.7 % (40-80); PLATELET COUNT 335 10x3/uL (130-400); RBC 3.76 10x6/uL (4.00-5.40); RDW 13.1 % (11.5-14.5); WBC 6.5 10x3/uL (4.8-10.8)
[2021-03-16 05:47] LABS: ANION GAP 9.9 mmol/L (8-16); CALCIUM 8.7 mg/dL (8.5-10.1); POTASSIUM - SERUM 3.9 mmol/L (3.5-5.1)
[2021-03-16 05:48] LABS: CREATININE - SERUM 1.1 mg/dL (0.6-1.3)
[2021-03-16 06:42] VITALS: BP 135/35
[2021-03-16 09:47] VITALS: BP 158/55
--- NOTE | 2021-03-16 11:20 | NUR ---
GOT PT UP TO BEDSIDE CHAIR, CHANGED BRIEF AND PLACED PURE WICK PROPERLY. FEET ELEVATED, SCD'S PLACED ON LEGS. ADMINISTERED MEDICATION AND PROVIDED CHICKEN BROTH. DENIES FURTHER NEEDS AT THIS TIME. WILL CONTINUE POC.
--- NOTE | 2021-03-16 12:27 | NUR ---
UPRIGHT IN BEDSIDE CHAIR, ADMINISTERED MEDICATION, NO DIFFICUTLIES. EATING LUNCH. DENIES ANY NEEDS. WILL CONTINUE POC.
[2021-03-16 13:51] VITALS: BP 157/65
--- NOTE | 2021-03-16 15:56 | NUR ---
ASSISTED PT TO BATHROOM FOR BM. AMBULATED WITH MINIMAL DIFFICULTY OR ASSISTANCE. REPLACED PUREWICK AND SITUATED PT COMFORTABLY IN BED. DENIES ANY FURTHER NEEDS AT THIS TIME. WILL CONTINUE POC.
[2021-03-16 18:20] VITALS: BP 150/61
--- NOTE | 2021-03-16 18:28 | NUR ---
FARMWORKER TRANSFERRED PT TO BED FROM BEDSIDE CHAIR. SITUATED COMFORTABLY, PROVIDED WITH EXTRA BLANKETS. DENIES FURTHER NEEDS AT THIS TIME. BED IN LOWEST POSITION, BED RAILS X2, CALL LIGHT WITHIN REACH. WILL CONTINUE POC.
--- NOTE | 2021-03-16 19:00 | NUR ---
BEDSIDE REPORT RECEIVED AND CARE OF PT ASSUMED. PT LYING IN SUPINE POSITION TALKING ON THE PHONE. IV TO LEFT FA SALINE LOCKED. WILL MONITOR FOR NEEDS.
--- NOTE | 2021-03-16 20:38 | NUR ---
HS MEDICATIONS GIVEN TO INCLUDE XANAX PO PER PRN ORDER, PER REQUEST FOR SLEEP. GAVE MEDS WHOLE IN APPLESAUCE. WILL CONTINUE TO MONITOR FOR NEEDS.
[2021-03-16 22:06] VITALS: BP 177/53
[2021-03-17 06:59] LABS: BASOPHILS 0.4 % (0-2); EOSINOPHILS 1.5 % (0-7); HEMATOCRIT 36.2 % (36.0-48.0); HEMOGLOBIN 11.7 g/dL (12-16); IMMATURE GRANULOCYTES 0.3 % (0-5); LYMPHOCYTE ABS# 1.83 10x3/uL (1.18-3.74); LYMPHOCYTES 27.2 % (15-50); MCH 29.2 pg (26.0-34.0); MCHC 32.3 g/dL (31.0-37.0); MCV 90.3 fL (80.0-100.0); MEAN PLATELET VOLUME 9.7 fL (7.4-10.4); MONOCYTES 15.3 % (2-11); NEUTROPHIL ABS# 3.71 10x3/uL (1.56-6.13); NEUTROPHILS 55.3 % (40-80); PLATELET COUNT 329 10x3/uL (130-400); RBC 4.01 10x6/uL (4.00-5.40); RDW 13.3 % (11.5-14.5); WBC 6.7 10x3/uL (4.8-10.8)
[2021-03-17 07:11] LABS: ANION GAP 10.1 mmol/L (8-16); CALCIUM 8.7 mg/dL (8.5-10.1); CARBON DIOXIDE 26.5 mmol/L (21.0-32.0); POTASSIUM - SERUM 3.6 mmol/L (3.5-5.1)
--- NOTE | 2021-03-17 08:30 | NUR ---
RECIEVED BEDSIDE REPORT. MOVED UP IN BED. DENIES FURTHER NEEDS AT THIS TIME. BED LOW POSITION, CALL LIGHT IN REACH. WILL CONTINUE TO MONITOR.
[2021-03-17 08:43] VITALS: BP 199/69
[2021-03-17 14:19] VITALS: BP 183/69
--- NOTE | 2021-03-17 16:52 | NUR ---
REHAB PRESCREEN ORDER RECEIVED. WE WILL LOOK IN MORE DETAIL ON THIS PATIENT IN THE MORNING AND LET CASE MANAGEMENT KNOW THE DETERMINATION. THANK YOU FOR THIS REFERRAL. BAIRON RUVALCABA RN CLINICAL LIAISON, INPATIENT REHAB DISCUSSED THIS WITH VENESSA ANTONY RN CM
[2021-03-17 17:30] VITALS: BP 194/60
[2021-03-18] VITALS: BP 151/61
[2021-03-18 04:00] VITALS: BP 138/73
[2021-03-18 06:19] LABS: BASOPHILS 0.2 % (0-2); EOSINOPHILS 3.3 % (0-7); HEMATOCRIT 34.6 % (36.0-48.0); HEMOGLOBIN 11.1 g/dL (12-16); IMMATURE GRANULOCYTES 0.2 % (0-5); LYMPHOCYTE ABS# 2.22 10x3/uL (1.18-3.74); LYMPHOCYTES 40.3 % (15-50); MCH 29.1 pg (26.0-34.0); MCHC 32.1 g/dL (31.0-37.0); MCV 90.8 fL (80.0-100.0); MEAN PLATELET VOLUME 9.9 fL (7.4-10.4); MONOCYTES 10.9 % (2-11); NEUTROPHIL ABS# 2.49 10x3/uL (1.56-6.13); NEUTROPHILS 45.1 % (40-80); PLATELET COUNT 317 10x3/uL (130-400); RBC 3.81 10x6/uL (4.00-5.40); RDW 13.4 % (11.5-14.5); WBC 5.5 10x3/uL (4.8-10.8)
[2021-03-18 06:36] LABS: ANION GAP 12.5 mmol/L (8-16); CALCIUM 8.7 mg/dL (8.5-10.1); CARBON DIOXIDE 27.1 mmol/L (21.0-32.0); CREATININE - SERUM 0.9 mg/dL (0.6-1.3); POTASSIUM - SERUM 3.6 mmol/L (3.5-5.1)
--- NOTE | 2021-03-18 07:38 | NUR ---
RECIEVED BEDSIDE REPORT. AROUSES TO VOICE. DENIES NEEDS AT THIS TIME. BED LOW POSITION, CALL LIGHT IN PLACE. PURWICK IN PLACE. WILL CONTINUE TO MONITOR. RAE ALARM ON.
--- NOTE | 2021-03-18 07:45 | NUR ---
PATIENT RESTED WELL, DENIED PAIN, SHE IS CURRENTLY RESTING IN BED WITH HER EYES CLOSED.
[2021-03-18 10:49] VITALS: BP 140/49
--- NOTE | 2021-03-18 13:47 | NUR ---
Nutrition Follow-up: Diet: Regular, 1500mL fluid restriction PO intake: 50% of breakfast this AM. States that she "felt horrible yesterday." States that she woke up feeling much better today and feels that her appetite is improving as well. I am familiar with patient from previous IP Rehab stay. She was drinking chocolate Boost at that time. Last BM: none recorded since admit Wt: 173# (03/14/21) Meds and labs reviewed. Recommend continue current diet. Encouraged PO intake. Will continue to honor food preferences. Will add chocolate Boost with meals. RD will follow-up 03/21/21.
[2021-03-18 14:00] VITALS: BP 161/56
--- NOTE | 2021-03-18 15:09 | NUR ---
IN BED. REQUESTS JUICE "TO HELP HER GET HER STRENGTH UP" GAVE AN APPLE JUICE. DENIES FURTHER NEEDS AT THIS TIME. WILL CONTINUE TO MONITOR.
--- NOTE | 2021-03-18 17:14 | NUR ---
OT NOTE: PT STATED THIS HAS BEEN HER BEST DAY IN HOSPITAL. PT COMPLETED SIT TO STAND WITH CGA. PT COMPLETED ADL MOB WITH CGA. PT COMPLETED BED MOBILITY TASKS WITH CGA-MIN A. PT COMPLETED FACE HYGIENE WITH SETUP . [phone] THANK YOU,ELIDA BOWEN
--- NOTE | 2021-03-18 17:16 | NUR ---
OT NOTE: PT DOING MUCH BETTER TODAY. REPORTS THAT HER PAIN IN BACK AND SHOULDER IS GONE. STATES THAT SHE FEELS MUCH BETTER; BED MOB WITH MIN ASSIST; IN ROOM AMBULATION WITH MIN ASSIST AND USE OF WALKER; TOILETING WITH MIN ASSIST AND WALKER; MOD ASSIST TO FLORINA BRIEF AND SOCKS; AMB INTO HALLWAY TO IMPROVE STRENGTH/ENDURANCE. UE EXS WITH MOD REST BREAKS. VENESSA LONG, OTR/L [id number]
[2021-03-18 17:29] VITALS: BP 159/82
[2021-03-18 20:00] VITALS: BP 160/61
[2021-03-19] VITALS: BP 139/58
[2021-03-19 04:00] VITALS: BP 130/53
--- NOTE | 2021-03-19 04:10 | NUR ---
PATIENT APPEARED TO REST WELL THROUGH THE NIGHT, DENIES PAIN, SHE IS CURRENTLY RESTING IN BED WITH HER EYES CLOSED.
[2021-03-19 07:16] LABS: BASOPHILS 0.3 % (0-2); HEMATOCRIT 36.1 % (36.0-48.0); HEMOGLOBIN 11.5 g/dL (12-16); IMMATURE GRANULOCYTES 0.3 % (0-5); LYMPHOCYTE ABS# 1.99 10x3/uL (1.18-3.74); LYMPHOCYTES 34.3 % (15-50); MCH 29.3 pg (26.0-34.0); MCHC 31.9 g/dL (31.0-37.0); MCV 91.9 fL (80.0-100.0); MEAN PLATELET VOLUME 10.2 fL (7.4-10.4); MONOCYTES 10.7 % (2-11); NEUTROPHIL ABS# 2.93 10x3/uL (1.56-6.13); NEUTROPHILS 50.4 % (40-80); PLATELET COUNT 337 10x3/uL (130-400); RBC 3.93 10x6/uL (4.00-5.40); RDW 13.5 % (11.5-14.5); WBC 5.8 10x3/uL (4.8-10.8)
[2021-03-19 07:41] LABS: CALCIUM 8.8 mg/dL (8.5-10.1); CARBON DIOXIDE 27.8 mmol/L (21.0-32.0); CREATININE - SERUM 1.1 mg/dL (0.6-1.3); POTASSIUM - SERUM 3.8 mmol/L (3.5-5.1)
--- NOTE | 2021-03-19 07:45 | NUR ---
ALERT AND ORIENTED. ASSESSMENT COMPLETE. CALL RODRIGUEZ AND PERSONAL ITEMS IN REACH. WILL CONTINUE TO MONITOR.
[2021-03-19 08:47] VITALS: BP 158/60
[2021-03-19 12:25] VITALS: BP 159/58
[2021-03-19] MEDS ORDERED: COLACE100 MG PO (13:59)
--- NOTE | 2021-03-19 15:48 | MORECARE ---
CASE MANAGEMENT DISCHARGE SUMMARY PATIENT: YESENIA REYES UNIT: [id number] ADM DATE: 03/13/21 AGE: 89 : 31 SEX: F [facility] AUTHOR: ROD,DOC PHYSICIAN: REFERRING PHYSICIAN: CHANELL LI MD DATE OF SERVICE: 03/19/21 Case Management Discharge Planning Summary COMMENTS ENTERED DATE: 03/19/21 15:43 CT COMMENT TYPE: Discharge Planning REVIEWER: Gina Ramirez PER DR LI THE PATIENT CAN BE DISCHARGED TO INPATIENT REHAB, BUT SHE DID NOT HAVE A GOOD EXPERIENCE THERE AND WOULD LIKE TO GO TO [facility]. [facility] SIGNED AND THE DISCHARGE WAS PLACED ON HOLD. I CALLED BE[facility]ER AND SPOKE WITH AG AT [facility] AND A REFERRAL WAS SENT. CM WILL WAIT FOR APPROVAL FOR NURSING HOME ENTERED DATE: 03/18/21 15:35 CT COMMENT TYPE: Discharge Planning REVIEWER: Gina Klein with [facility] is here speaking with patient DCP REVIEW SUMMARY ANTICIPATED D/C DATE: EXPECTED LOS : CASE STATUS: DCP Initiated INITIAL REVIEW: 03/13/2021 INITIAL REVIEWER: Gina Ramirez FINAL DISCHARGE DISPOSITION: : FINAL REVIEWER: FINAL REVIEW DATE: DCP Focus Questions & Answers QUESTION: ANSWER : PATIENT: YESENIA REYES V ENCOUNTER: [id number] MEDICAL RECORD#: [id number] ADMISSION DATE: 03/13/2021 DISCHARGE DATE: ATTENDING MD: CHANELL NOVOA : AGE: 89 MARITAL STATUS: M DC PLAN ID: [id number] FACILITY: [facility] PRINTED ON: 03/19/21 15:48 CT All edits/amendments must be made on the electronic document DICTATION DATE: 03/19/211547 EXTRUDING PRESS ADJUSTER: JOHN 03/19/211547 RPT#: [id number] DC DATE: STATUS: ADM IN [facility] [address] [place] [address] END OF REPORT
[2021-03-19 16:57] VITALS: BP 168/57
--- NOTE | 2021-03-19 17:29 | NUR ---
OT NOTE: PT COMPLETED CHAIR TO TOILET ADL MOB WITH CGA. PT COMPLETED TOILETING WITH SBA. PT COMPLETED HAND HYGIENE WITH SETUP. PT COMPLETED CLOTHING MANAGEMENT WITH MIN A. [id number] THANK YOU,ELIDA BOWEN
[2021-03-19 20:00] VITALS: BP 173/57
--- NOTE | 2021-03-19 20:29 | NUR ---
rec'd chge of shift walking rounds in bed eyes closed resp deep and even.will continue to monitor and follow current plan of care
[2021-03-20] VITALS: BP 156/74
[2021-03-20 04:00] VITALS: BP 151/51
--- NOTE | 2021-03-20 08:08 | MORECARE ---
CASE MANAGEMENT DISCHARGE SUMMARY PATIENT: YESENIA REYES UNIT: [id number] ADM DATE: 03/13/21 AGE: 89 : 31 SEX: F ROOM/BED: D.2217 AUTHOR: ROD,DOC PHYSICIAN: REFERRING PHYSICIAN: CHANELL LI MD DATE OF SERVICE: 03/20/21 Case Management Discharge Planning Summary COMMENTS ENTERED DATE: 03/20/21 8:02 CT COMMENT TYPE: Discharge Planning REVIEWER: Gina LUONG WITH [facility] STATED THAT THEY WILL ACCEPT [facility] WHEN THE RAPID COVID RETURNS CM TO FOLLOW ENTERED DATE: 03/19/21 15:43 CT COMMENT TYPE: Discharge Planning REVIEWER: Gina Ramirez PER DR LI THE PATIENT CAN BE DISCHARGED TO INPATIENT REHAB, BUT SHE DID NOT HAVE A GOOD EXPERIENCE THERE AND WOULD LIKE TO GO TO [facility]. [facility]Z SIGNED AND THE DISCHARGE WAS PLACED ON HOLD. I CALLED IDALIA AND SPOKE WITH AG AT [facility] AND A REFERRAL WAS SENT. CM WILL WAIT FOR APPROVAL FOR RESIDENTIAL ENTERED DATE: 03/18/21 15:35 CT COMMENT TYPE: Discharge Planning REVIEWER: Gina Klein with [facility] is here speaking with patient DCP REVIEW SUMMARY ANTICIPATED D/C DATE: EXPECTED LOS : CASE STATUS: DCP Initiated INITIAL REVIEW: 03/13/2021 INITIAL REVIEWER: Gina Ramirez FINAL DISCHARGE DISPOSITION: : FINAL REVIEWER: FINAL REVIEW DATE: DCP Focus Questions & Answers QUESTION: ANSWER : PATIENT: YESENIA REYES V ENCOUNTER: [id number] MEDICAL RECORD#: [id number] ADMISSION DATE: 03/13/2021 DISCHARGE DATE: ATTENDING MD: CHANELL NOVOA : AGE: 89 MARITAL STATUS: M DC PLAN ID: [id number] FACILITY: [facility] PRINTED ON: 03/20/21 8:08 CT All edits/amendments must be made on the electronic document DICTATION DATE: 03/20/21807 PACKAGER MACHINE: JOHN 03/20/21807 RPT#: [id number] DC DATE: STATUS: ADM IN [facility] [address] [place] [address] END OF REPORT
[2021-03-20 08:48] VITALS: BP 149/59
[2021-03-20 10:27] LABS: SARS-CoV-2 ANTIGEN NEGATIVE- SARS-COV-2 (NEGATIVE)
--- NOTE | 2021-03-20 12:20 | MORECARE ---
CASE MANAGEMENT DISCHARGE SUMMARY PATIENT: YESENIA REYES UNIT: [id number] ADM DATE: 03/13/21 AGE: 89 : 31 SEX: F ROOM/BED: D.2217 AUTHOR: ROD,DOC PHYSICIAN: REFERRING PHYSICIAN: CHANELL LI MD DATE OF SERVICE: 03/20/21 Case Management Discharge Planning Summary COMMENTS ENTERED DATE: 03/20/21 8:02 CT COMMENT TYPE: Discharge Planning REVIEWER: Gina LUONG WITH [facility] STATED THAT THEY WILL ACCEPT [facility] WHEN THE RAPID COVID RETURNS CM TO FOLLOW ENTERED DATE: 03/19/21 15:43 CT COMMENT TYPE: Discharge Planning REVIEWER: Gina Ramirez PER DR LI THE PATIENT CAN BE DISCHARGED TO INPATIENT REHAB, BUT SHE DID NOT HAVE A GOOD EXPERIENCE THERE AND WOULD LIKE TO GO TO [facility]. LUZ SIGNED AND THE DISCHARGE WAS PLACED ON HOLD. I CALLED [place] AND SPOKE WITH AG AT [facility] AND A REFERRAL WAS SENT. CM WILL WAIT FOR APPROVAL FOR LONG TERM ENTERED DATE: 03/18/21 15:35 CT COMMENT TYPE: Discharge Planning REVIEWER: Gina Klein with [facility] is here speaking with patient DCP REVIEW SUMMARY ANTICIPATED D/C DATE: EXPECTED LOS : CASE STATUS: DCP Initiated INITIAL REVIEW: 03/13/2021 INITIAL REVIEWER: Gina Ramirez FINAL DISCHARGE DISPOSITION: 03 : Discharged/Trans to SNF with Medicare Certification in Anticipation of Skilled Care FINAL REVIEWER: FINAL REVIEW DATE: DCP Focus Questions & Answers DCP Screen QUESTION: ANSWER High Risk Factors: : Polypharmacy (greater than 10 meds) DCP Evaluation QUESTION: ANSWER Patient and/or caregiver agree upon recommended discharge plan? : Yes Family / Caregiver's ability to cope with chronic illness: : a. Adequate (ability to meet patient's medical needs, ensures patient attends medical appts.) Patient's current cognitive status: : *Oriented to person, place, situation, time and present Patient's ability to cope with chronic illness : a. Adequate (0-3 ED visits in 6 mos., adequate financial resources, attends scheduled appts.) Does the patient have the ability to pay for or attain post discharge needs / services? : Yes Functional screen assessment: : New onset in difficulty in gait, balance, or transfer difficulties Family / Caregiver's ability to cope with chronic illness: : a. Adequate (ability to meet patient's medical needs, ensures patient attends medical appts.) Physical Status: : Mobility impaired Is there a likelihood that the patient will require additional services to return to the preadmission environment? : Yes Functional screen comments: : FALLING BLOOD PRESSURE PROBLEMS Living Arrangements: : Home Alone with Support Partial Dependence, assistance required for: : Ambulation / Mobility Results of this evaluation have been discussed with: : Patient Patient with capacity for self-care or can be cared for in same environment as prior to hospitalization? : No Living arrangements comments: : LIVES ALONE Baseline cognitive status: : *Oriented to person, place, situation, time and present Physical environment modification needed / anticipated for discharge: : N/A Medication Management: : Patient states can read and understand medication labels Medication Management: : Patient states can afford medications Planned post hospital services available for patient? : Yes [facility] Planned post hospital services covered by insurance plan? : Yes Does Patient have transportation to get home and to follow-up medical appointments when discharged from the hospital? : Yes Would patient like to participate in any Care Coordination programs (if applicable): : Not applicable Other Care Coordination programs/comments: : WILL DC TO A SKILLED FACILITY [facility] Does the patient have electricity at home? : Yes Does the patient have running water in their house? : Yes Equipment in use: : Wheelchair Equipment in use: : Walker - Rolling Equipment in use: : Cane - Single Leg Mental health screen: : No mental health history Psychosocial status: : Independent adult (65+) Abuse/Neglect: : None Resources / Services in place: : Home health Contact information for resources in use: : CURRENT WITH [facility] Re-evaluation QUESTION: ANSWER Would patient like to participate in any Care Coordination programs (if applicable): : Not applicable PATIENT: YESENIA REYES Peggy ENCOUNTER: [id number] MEDICAL RECORD#: [id number] ADMISSION DATE: 03/13/2021 DISCHARGE DATE: ATTENDING MD: CHANELL NOVOA : AGE: 89 MARITAL STATUS: M DC PLAN ID: [id number] FACILITY: [facility] PRINTED ON: 03/20/21 12:20 CT All edits/amendments must be made on the electronic document DICTATION DATE: 03/20/211219 GARMENT INSPECTOR: JOHN 03/20/210 RPT#: [id number] DC DATE: STATUS: ADM IN [facility] [address] [place] [address] END OF REPORT
--- NOTE | 2021-03-20 12:32 | MORECARE ---
CASE MANAGEMENT DISCHARGE SUMMARY PATIENT: YESENIA REYES UNIT: [id number] ADM DATE: 03/13/21 AGE: 89 : 31 SEX: F ROOM/BED: D.2217 AUTHOR: ROD,DOC PHYSICIAN: REFERRING PHYSICIAN: CHANELL LI MD DATE OF SERVICE: 03/20/21 Case Management Discharge Planning Summary COMMENTS ENTERED DATE: 03/20/21 12:15 CT COMMENT TYPE: Discharge Planning REVIEWER: Gina Ramirez CM met with patient to complete initial dc planning assessment. CM educated patient on the CM role and verbal consent given by patient to complete assessment. Patient lives at home by herself where she was independent with her care. She states that she has been falling at home and her doctor said she needed to be at rehab. At discharge patient plans to go to [facility] today to a skilled bed and feels this is a safe discharge. She is current with [facility] and I called them and let them know the dc plan. She has a wheelchair, cane and walker at home. She said that she has called her family and let them know about her discharge to [facility]. [facility] will pick her up at 1330 today. [facility] served and explained. Patient denied known discharge needs at this time. CM will continue to follow and will assist as needed with dc plans/needs. ENTERED DATE: 03/20/21 8:02 CT COMMENT TYPE: Discharge Planning REVIEWER: Gina LUONG WITH [facility] WILL [facility]EPT [facility] WHEN THE RAPID COVID RETURNS CM TO FOLLOW ENTERED DATE: 03/19/21 15:43 CT COMMENT TYPE: Discharge Planning REVIEWER: Gina Ramirez PER DR LI THE PATIENT CAN BE DISCHARGED TO INPATIENT REHAB, BUT SHE DID NOT HAVE A GOOD EXPERIENCE THERE AND WOULD LIKE TO GO TO [facility]. LUZ SIGNED AND THE DISCHARGE WAS PLACED ON HOLD. I CALLED [place] AND SPOKE WITH AG AT [facility] AND A REFERRAL WAS SENT. CM WILL WAIT FOR APPROVAL FOR RESIDENTIAL ENTERED DATE: 03/18/21 15:35 CT COMMENT TYPE: Discharge Planning REVIEWER: Gina Klein with [facility] is here speaking with patient DCP REVIEW SUMMARY ANTICIPATED D/C DATE: EXPECTED LOS : CASE STATUS: DCP Initiated INITIAL REVIEW: 03/13/2021 INITIAL REVIEWER: Gina Ramirez FINAL DISCHARGE DISPOSITION: 03 : Discharged/Trans to SNF with Medicare Certification in Anticipation of Skilled Care FINAL REVIEWER: FINAL REVIEW DATE: DCP Focus Questions & Answers DCP Screen QUESTION: ANSWER High Risk Factors: : Polypharmacy (greater than 10 meds) DCP Evaluation QUESTION: ANSWER Patient and/or caregiver agree upon recommended discharge plan? : Yes Family / Caregiver's ability to cope with chronic illness: : a. Adequate (ability to meet patient's medical needs, ensures patient attends medical appts.) Patient's current cognitive status: : *Oriented to person, place, situation, time and present Patient's ability to cope with chronic illness : a. Adequate (0-3 ED visits in 6 mos., adequate financial resources, attends scheduled appts.) Does the patient have the ability to pay for or attain post discharge needs / services? : Yes Functional screen assessment: : New onset in difficulty in gait, balance, or transfer difficulties Family / Caregiver's ability to cope with chronic illness: : a. Adequate (ability to meet patient's medical needs, ensures patient attends medical appts.) Physical Status: : Mobility impaired Is there a likelihood that the patient will require additional services to return to the preadmission environment? : Yes Functional screen comments: : FALLING BLOOD PRESSURE PROBLEMS Living Arrangements: : Home Alone with Support Partial Dependence, assistance required for: : Ambulation / Mobility Results of this evaluation have been discussed with: : Patient Patient with capacity for self-care or can be cared for in same environment as prior to hospitalization? : No Living arrangements comments: : LIVES ALONE Baseline cognitive status: : *Oriented to person, place, situation, time and present Physical environment modification needed / anticipated for discharge: : N/A Medication Management: : Patient states can read and understand medication labels Medication Management: : Patient states can afford medications Planned post hospital services available for patient? : Yes [facility] Planned post hospital services covered by insurance plan? : Yes Does Patient have transportation to get home and to follow-up medical appointments when discharged from the hospital? : Yes Would patient like to participate in any Care Coordination programs (if applicable): : Not applicable Other Care Coordination programs/comments: : WILL DC TO A SKILLED FACILITY [facility] Does the patient have electricity at home? : Yes Does the patient have running water in their house? : Yes Equipment in use: : Wheelchair Equipment in use: : Walker - Rolling Equipment in use: : Cane - Single Leg Mental health screen: : No mental health history Psychosocial status: : Independent adult (65+) Abuse/Neglect: : None Resources / Services in place: : Home health Contact information for resources in use: : CURRENT WITH [facility] Re-evaluation QUESTION: ANSWER Would patient like to participate in any Care Coordination programs (if applicable): : Not applicable PATIENT: YESENIA REYES V ENCOUNTER: [id number] MEDICAL RECORD#: [id number] ADMISSION DATE: 03/13/2021 DISCHARGE DATE: ATTENDING MD: CHANELL NOVOA : AGE: 89 MARITAL STATUS: M DC PLAN ID: [id number] FACILITY: [facility] PRINTED ON: 03/20/21 12:31 CT All edits/amendments must be made on the electronic document DICTATION DATE: 03/20/21 123 HARNESS BUILDER: JOHN 03/20/21 1231 RPT#: [id number] DC DATE: STATUS: ADM IN [facility] [address] [place] [address] END OF REPORT
[2021-03-20 12:46] VITALS: BP 143/59
--- NOTE | 2021-03-20 13:55 | MORECARE ---
CASE MANAGEMENT DISCHARGE SUMMARY PATIENT: YESENIA REYES UNIT: [id number] ADM DATE: 03/13/21 AGE: 89 : 31 SEX: F ROOM/BED: D.2217 AUTHOR: ROD,DOC PHYSICIAN: REFERRING PHYSICIAN: CHANELL LI MD DATE OF SERVICE: 03/20/21 Case Management Discharge Planning Summary COMMENTS ENTERED DATE: 03/20/21 12:15 CT COMMENT TYPE: Discharge Planning REVIEWER: Gina Ramirez CM met with patient to complete initial dc planning assessment. CM educated patient on the CM role and verbal consent given by patient to complete assessment. Patient lives at home by herself where she was independent with her care. She states that she has been falling at home and her doctor said she needed to be at rehab. At discharge patient plans to go to [facility] today to a skilled bed and feels this is a safe discharge. She is current with [facility] and I called them and let them know the dc plan. She has a wheelchair, cane and walker at home. She said that she has called her family and let them know about her discharge to [facility]. [facility] will pick her up at 1330 today. [facility] served and explained. Patient denied known discharge needs at this time. CM will continue to follow and will assist as needed with dc plans/needs. ENTERED DATE: 03/20/21 8:02 CT COMMENT TYPE: Discharge Planning REVIEWER: [facility] WILL [facility] WHEN THE RAPID COVID RETURNS CM TO FOLLOW ENTERED DATE: 03/19/21 15:43 CT COMMENT TYPE: Discharge Planning REVIEWER: Gina Ramirez PER DR LI THE PATIENT CAN BE DISCHARGED TO INPATIENT REHAB, BUT SHE DID NOT HAVE A GOOD EXPERIENCE THERE AND WOULD LIKE TO GO TO [facility]. LUZ SIGNED AND THE DISCHARGE WAS PLACED ON HOLD. I CALLED [place] AND SPOKE WITH AG AT [facility] AND A REFERRAL WAS SENT. CM WILL WAIT FOR APPROVAL FOR ASSISTED ENTERED DATE: 03/18/21 15:35 CT COMMENT TYPE: Discharge Planning REVIEWER: Gina Klein with [facility] is here speaking with patient DCP REVIEW SUMMARY ANTICIPATED D/C DATE: EXPECTED LOS : CASE STATUS: DCP Initiated INITIAL REVIEW: 03/13/2021 INITIAL REVIEWER: Gina Ramirez FINAL DISCHARGE DISPOSITION: 03 : Discharged/Trans to SNF with Medicare Certification in Anticipation of Skilled Care FINAL REVIEWER: FINAL REVIEW DATE: DCP Focus Questions & Answers DCP Screen QUESTION: ANSWER High Risk Factors: : Polypharmacy (greater than 10 meds) DCP Evaluation QUESTION: ANSWER Patient and/or caregiver agree upon recommended discharge plan? : Yes Family / Caregiver's ability to cope with chronic illness: : a. Adequate (ability to meet patient's medical needs, ensures patient attends medical appts.) Patient's current cognitive status: : *Oriented to person, place, situation, time and present Patient's ability to cope with chronic illness : a. Adequate (0-3 ED visits in 6 mos., adequate financial resources, attends scheduled appts.) Does the patient have the ability to pay for or attain post discharge needs / services? : Yes Functional screen assessment: : New onset in difficulty in gait, balance, or transfer difficulties Family / Caregiver's ability to cope with chronic illness: : a. Adequate (ability to meet patient's medical needs, ensures patient attends medical appts.) Physical Status: : Mobility impaired Is there a likelihood that the patient will require additional services to return to the preadmission environment? : Yes Functional screen comments: : FALLING BLOOD PRESSURE PROBLEMS Living Arrangements: : Home Alone with Support Partial Dependence, assistance required for: : Ambulation / Mobility Results of this evaluation have been discussed with: : Patient Patient with capacity for self-care or can be cared for in same environment as prior to hospitalization? : No Living arrangements comments: : LIVES ALONE Baseline cognitive status: : *Oriented to person, place, situation, time and present Physical environment modification needed / anticipated for discharge: : N/A Medication Management: : Patient states can read and understand medication labels Medication Management: : Patient states can afford medications Planned post hospital services available for patient? : Yes [facility] Planned post hospital services covered by insurance plan? : Yes Does Patient have transportation to get home and to follow-up medical appointments when discharged from the hospital? : Yes Would patient like to participate in any Care Coordination programs (if applicable): : Not applicable Other Care Coordination programs/comments: : WILL DC TO A SKILLED FACILITY [facility] Does the patient have electricity at home? : Yes Does the patient have running water in their house? : Yes Equipment in use: : Wheelchair Equipment in use: : Walker - Rolling Equipment in use: : Cane - Single Leg Mental health screen: : No mental health history Psychosocial status: : Independent adult (65+) Abuse/Neglect: : None Resources / Services in place: : Home health Contact information for resources in use: : CURRENT WITH [facility] Re-evaluation QUESTION: ANSWER Would patient like to participate in any Care Coordination programs (if applicable): : Not applicable PATIENT: YESENIA REYES V ENCOUNTER: [id number] MEDICAL RECORD#: [id number] ADMISSION DATE: 03/13/2021 DISCHARGE DATE: 03/20/2021 ATTENDING MD: CHANELL NOVOA : AGE: 89 MARITAL STATUS: M DC PLAN ID: [id number] FACILITY: [facility] PRINTED ON: 03/20/21 13:55 CT All edits/amendments must be made on the electronic document DICTATION DATE: 03/20/21 1355 SYSTEMS DEVELOPER: JOHN 03/20/21 1355 RPT#: [id number] DC DATE:03/20/21 STATUS: DIS IN [facility] [address] [place] [address] END OF REPORT
--- NOTE | 2021-03-20 16:08 | MORECARE ---
CASE MANAGEMENT DISCHARGE SUMMARY PATIENT: YESENIA REYES UNIT: [id number] ADM DATE: 03/13/21 AGE: 89 : 31 SEX: F ROOM/BED: D.2217 AUTHOR: ROD,DOC PHYSICIAN: REFERRING PHYSICIAN: CAHNELL LI MD DATE OF SERVICE: 03/20/21 Case Management Discharge Planning Summary COMMENTS ENTERED DATE: 03/20/21 12:15 CT COMMENT TYPE: Discharge Planning REVIEWER: Gina Ramirez CM met with patient to complete initial dc planning assessment. CM educated patient on the CM role and verbal consent given by patient to complete assessment. Patient lives at home by herself where she was independent with her care. She states that she has been falling at home and her doctor said she needed to be at rehab. At discharge patient plans to go to [facility] today to a skilled bed and feels this is a safe discharge. She is current with [facility] and I called them and let them know the dc plan. She has a wheelchair, cane and walker at home. She said that she has called her family and let them know about her discharge to [facility] rehab. [facility] will pick her up at 1330 today. [facility] served and explained. Patient denied known discharge needs at this time. CM will continue to follow and will assist as needed with dc plans/needs. ENTERED DATE: 03/20/21 8:02 CT COMMENT TYPE: Discharge Planning REVIEWER: G[facility] WHEN THE RAPID COVID RETURNS CM TO FOLLOW ENTERED DATE: 03/19/21 15:43 CT COMMENT TYPE: Discharge Planning REVIEWER: Gina Ramirez PER DR LI THE PATIENT CAN BE DISCHARGED TO INPATIENT REHAB, BUT SHE DID NOT HAVE A GOOD EXPERIENCE THERE AND WOULD LIKE TO GO TO [facility]. LUZ SIGNED AND THE DISCHARGE WAS PLACED ON HOLD. I CALLED [place] AND SPOKE WITH AG AT [facility] AND A REFERRAL WAS SENT. CM WILL WAIT FOR APPROVAL FOR CARE HOME ENTERED DATE: 03/18/21 15:35 CT COMMENT TYPE: Discharge Planning REVIEWER: Gina Klein with [facility] is here speaking with patient DCP REVIEW SUMMARY ANTICIPATED D/C DATE: EXPECTED LOS : CASE STATUS: DCP Initiated INITIAL REVIEW: 03/13/2021 INITIAL REVIEWER: Gina Ramirez FINAL DISCHARGE DISPOSITION: 03 : Discharged/Trans to SNF with Medicare Certification in Anticipation of Skilled Care FINAL REVIEWER: FINAL REVIEW DATE: DCP Focus Questions & Answers DCP Screen QUESTION: ANSWER High Risk Factors: : Polypharmacy (greater than 10 meds) DCP Evaluation QUESTION: ANSWER Patient and/or caregiver agree upon recommended discharge plan? : Yes Family / Caregiver's ability to cope with chronic illness: : a. Adequate (ability to meet patient's medical needs, ensures patient attends medical appts.) Patient's current cognitive status: : *Oriented to person, place, situation, time and present Patient's ability to cope with chronic illness : a. Adequate (0-3 ED visits in 6 mos., adequate financial resources, attends scheduled appts.) Does the patient have the ability to pay for or attain post discharge needs / services? : Yes Functional screen assessment: : New onset in difficulty in gait, balance, or transfer difficulties Family / Caregiver's ability to cope with chronic illness: : a. Adequate (ability to meet patient's medical needs, ensures patient attends medical appts.) Physical Status: : Mobility impaired Is there a likelihood that the patient will require additional services to return to the preadmission environment? : Yes Functional screen comments: : FALLING BLOOD PRESSURE PROBLEMS Living Arrangements: : Home Alone with Support Partial Dependence, assistance required for: : Ambulation / Mobility Results of this evaluation have been discussed with: : Patient Patient with capacity for self-care or can be cared for in same environment as prior to hospitalization? : No Living arrangements comments: : LIVES ALONE Baseline cognitive status: : *Oriented to person, place, situation, time and present Physical environment modification needed / anticipated for discharge: : N/A Medication Management: : Patient states can read and understand medication labels Medication Management: : Patient states can afford medications Planned post hospital services available for patient? : Yes [facility] Planned post hospital services covered by insurance plan? : Yes Does Patient have transportation to get home and to follow-up medical appointments when discharged from the hospital? : Yes Would patient like to participate in any Care Coordination programs (if applicable): : Not applicable Other Care Coordination programs/comments: : WILL DC TO A SKILLED FACILITY [facility] Does the patient have electricity at home? : Yes Does the patient have running water in their house? : Yes Equipment in use: : Wheelchair Equipment in use: : Walker - Rolling Equipment in use: : Cane - Single Leg Mental health screen: : No mental health history Psychosocial status: : Independent adult (65+) Abuse/Neglect: : None Resources / Services in place: : Home health Contact information for resources in use: : CURRENT WITH [facility] Re-evaluation QUESTION: ANSWER Would patient like to participate in any Care Coordination programs (if applicable): : Not applicable PATIENT: YESENIA REYES V ENCOUNTER: [id number] MEDICAL RECORD#: [id number] ADMISSION DATE: 03/13/2021 DISCHARGE DATE: 03/20/2021 ATTENDING MD: CHANELL NOVOA : AGE: 89 MARITAL STATUS: M DC PLAN ID: [id number] FACILITY: [facility] PRINTED ON: 03/20/21 16:08 CT All edits/amendments must be made on the electronic document DICTATION DATE: 03/20/211607 MARGARINE CHURN OPERATOR: JOHN 03/20/21 1608 RPT#: [id number] DC DATE:03/20/21 STATUS: DIS IN [facility] [address] [place] [address] END OF REPORT
== END 2021-03-20 13:45 | DRG 641 ==
LOC: D.ER 14:36 → D.MS 19:20
PROVIDERS: Family Medicine; ADMIT Family Medicine; ATTEND Family Medicine
DX: E87.1 Hypo-osmolality and hyponatremia (principal); E87.8 Other disorders of electrolyte and fluid balance, not elsewhere classified; N95.2 Postmenopausal atrophic vaginitis; B37.3 Candidiasis of vulva and vagina; I10 Essential (primary) hypertension; R25.2 Cramp and spasm; R53.1 Weakness

== ENCOUNTER 2021-05-14 20:24 | Emergency (ER) | payer MEDICARE, BC ==
[~2021-05-14] VITALS: Ht 170.2 cm; Wt 86.4 kg
[~2021-05-14 20:24] MED LIST changes: +ASCORBIC ACID500 MG PO; +CALCIUM/MAG/ZINC PO; +COLACE100 MG PO; +EDARBYCLOR 40-1 EACH PO; +ESTRACE 0.0142.5 GM VG; +MYCOSTATIN 15 G15 GM TOPICAL; +VITAMIN B-121000 MCG PO
[2021-05-14 20:29] VITALS: Ht 170.2 cm; Wt 86.4 kg
[2021-05-14] MEDS ORDERED: MELATONIN 3 MG1 TAB PO (20:59)
[2021-05-14] MEDS ORDERED: TRAZODONE HCL50 MG PO (21:03)
[2021-05-14] MEDS ORDERED: ALBUTEROL1.25 MG/3 INH (21:04)
[2021-05-14] MEDS ORDERED: MUCINEX600 MG PO (21:05)
[2021-05-14] MEDS ORDERED: THERMOTABS 1 GM1 GM PO (21:09)
[2021-05-14] MEDS ORDERED: IMODIUM2 MG PO (21:10)
[2021-05-14 22:34] LABS: BILIRUBIN NEGATIVE (NEGATIVE); KETONE NEGATIVE mg/dL (< 1+); NITRITE NEGATIVE (NEGATIVE); PH 6.5 (5.0-8.0); UROBILINOGEN NORMAL mg/dL (< 2)
[2021-05-14 22:40] LABS: ANION GAP 9.8 mmol/L (8-16); BASOPHILS 0.4 % (0-2); CALCIUM 8.8 mg/dL (8.5-10.1); CREATININE - SERUM 0.9 mg/dL (0.6-1.3); EOSINOPHILS 1.1 % (0-7); HEMATOCRIT 36.1 % (36.0-48.0); HEMOGLOBIN 11.9 g/dL (12-16); LYMPHOCYTES 23.7 % (15-50); MCH 29.9 pg (26.0-34.0); MCHC 33.1 g/dL (31.0-37.0); MCV 90.4 fL (80.0-100.0); MEAN PLATELET VOLUME 7.2 fL (7.4-10.4); MONOCYTES 11.1 % (2-11); NEUTROPHILS 63.7 % (40-80); PLATELET COUNT 360 10x3/uL (130-400); POTASSIUM - SERUM 3.8 mmol/L (3.5-5.1); RBC 3.99 10x6/uL (4.00-5.40); WBC 6.6 10x3/uL (4.8-10.8)
[2021-05-14 22:45] LABS: ALBUMIN 3.6 g/dL (3.4-5.0); BILIRUBIN - TOTAL 0.37 mg/dL (0.2-1.3); MAGNESIUM - SERUM 1.6 mg/dL (1.8-2.4); PROTEIN - SERUM 6.6 g/dL (6.4-8.2)
[2021-05-15 00:46] VITALS: BP 171/81
== END 2021-05-15 00:46 ==
LOC: D.ER 20:24
PROVIDERS: Family Medicine
DX: F41.9 Anxiety disorder, unspecified (principal); E87.1 Hypo-osmolality and hyponatremia; I10 Essential (primary) hypertension; Z95.0 Presence of cardiac pacemaker; J44.9 Chronic obstructive pulmonary disease, unspecified; K21.9 Gastro-esophageal reflux disease without esophagitis